=== PATIENT | female | born 1945 | race Caucasian/White ===

== ENCOUNTER → 2016-09-28 | Outpatient (CLI) | payer MEDICARE, BC, OTHER ==
--- NOTE | 2016-09-28 12:19 | ECHOS ---
DATE OF SERVICE: 09/28/2016 AGE: 71Y SEX: F HT: 62" WT: 141 lbs. Protocol Michael: X Others: Stress Echo Stage: 1 Dur. of Exercise: 3:00 *Heart Rate Blood Pressure *Rest: 66 Rest: 139/102 * *Max. Achieved: 140 Maximum BP: 207/78 85% PMHR: 125 100% PMHR: 147 *METS: 4.4 INDICATIONS: Chest pain. MEDICATIONS: Oxybutynin, aspirin. CLINICAL INFORMATION: Chest pain. Current medications oxybutynin, aspirin. Allergic to SULFA. Resting ECG shows sinus rhythm, rate of 66 beats per minute, VA interval 0.16, QRS 0.08, normal ST-T waves. Utilizing a standard Michael protocol, a symptom-limited treadmill test was performed. Patient exercised for total of about 3 minutes, attained a peak heart rate of 140 beats per minute which is approximately 90% of predicted maximum heart rate without chest pain or pressure or ST segment deviations indicative of ischemia. Baseline images show normal thickening and contractility. Postexercise echocardiogram shows improved contractility and thickening consistent with normal stress echocardiogram. IMPRESSION: 1. Normal stress echocardiogram. 2. Patient did not report any symptoms throughout the study.
== END | disposition home or self-care (01) ==
LOC: RADNMMAIN 09:24
PROVIDERS: ATTEND Internal Medicine
DX: R07.9 Chest pain, unspecified (principal); R68.84 Jaw pain
CPT/HCPCS: 93017; 93350

== ENCOUNTER → 2018-08-28 | Outpatient (CLI) | payer MEDICARE, BC, OTHER ==
[2018-08-28 15:55] LABS: HCT 41.9 % (34.0-46.0); MCH 30.1 pg (25.0-35.0); MCV 97.1 fL (80.0-100.0); Mean Platelet Volume 6.1; Platelet Count 370 k/uL (150-450); RBC 4.32 m/uL (3.80-5.40); RDW 12.6 % (11.5-15.5); WBC 6.9 k/uL (3.8-10.6)
[2018-08-28 16:02] LABS: Appearance,Urine Clear (Clear); Bilirubin,Urine Negative (Negative); Blood,Urine Negative (Negative); Color,Urine Yellow; Glucose,Urine (UA) Negative (Negative); Ketones,Urine Negative (Negative); Leukocyte Esterase,Urine Negative (Negative); Nitrite,Urine Negative (Negative); Protein,Urine Negative (Negative); Specific Gravity,Urine 1.006 (1.001-1.035); Urobilinogen,Urine <2.0 mg/dL (<2.0)
[2018-08-28 16:04] LABS: INR 0.9 (<1.2); Partial Thromboplastin Time 26.1 sec (22.0-30.0); Prothrombin Time 9.9 sec (9.0-12.0)
[2018-08-28 16:06] LABS: ALT 24 U/L (9-52); AST 22 U/L (14-36); Albumin 3.9 g/dL (3.5-5.0); Alkaline Phosphatase 42 U/L (38-126); Anion Gap 6 mmol/L; Blood Urea Nitrogen 13 mg/dL (7-17); Calcium 9.5 mg/dL (8.4-10.2); Carbon Dioxide 28 mmol/L (22-30); Chloride 99 mmol/L (98-107); Glucose 107 mg/dL (74-99); Potassium 4.3 mmol/L (3.5-5.1); Sodium 133 mmol/L (137-145); Total Bilirubin 0.3 mg/dL (0.2-1.3); Total Protein 6.5 g/dL (6.3-8.2)
== END | disposition home or self-care (01) ==
LOC: LABPAT 14:59
PROVIDERS: ATTEND Orthopaedic Surgery
DX: Z01.818 Encounter for other preprocedural examination (principal); Z01.812 Encounter for preprocedural laboratory examination
CPT/HCPCS: 36415; 80053; 81003; 85027; 85610; 85730; 87070; 93005

== ENCOUNTER 2018-09-16 07:34 | Inpatient (IN) | payer MEDICARE, BC, OTHER ==
--- NOTE | 2018-09-03 05:17 | CONS ---
CONSULTATION Mrs. Kennedy is a 73-year-old female who is scheduled to have left total knee arthroplasty by Dr. Quinton Chang to be performed at [facility] on September 16, 2018. The patient has had rather chronic left knee pain, not responding to conservative measures and she is fairly active. Basically she has generally been fairly healthy without history of myocardial infarction, diabetes or stroke. MEDICATIONS: Medications include melatonin at night for sleep. She is on for sinus congestion, oxybutynin 5 mg daily for bladder incontinence and hyperactive bladder. She is also on magnesium, coenzyme Q10 and other vitamin supplementation. REVIEW OF SYSTEMS: Negative for any unusual chest pain, shortness of breath, cough, fever, chills, or phlegm. No nausea, vomiting. No urinary or bowel symptoms. No unusual leg edema. No symptoms consistent with claudication. PREVIOUS SURGICAL HISTORY: Previous surgical history includes a tubal ligation and previous right knee replacement, previous cholecystectomy, ganglion cyst removal from the left breast and also previous right knee arthroscopy wound. FAMILY HISTORY: Family history is positive for coronary artery disease and asthma. SOCIAL HISTORY: She is a former smoker many years in the past. There is no history of any excessive alcohol usage. She lives locally in [place] with her . PHYSICAL EXAMINATION: On physical examination, she is alert, oriented, and pleasant female in no acute distress. Vital signs showed a blood pressure 128/72, pulse 70 and regular, respirations normal at 14. Her BMI is 24.5. HEENT was unremarkable with extraocular movements intact. Neck is not stiff. No thyromegaly, adenopathy detected. Lungs were clear to auscultation. Heart tones were regular without murmur. Breasts and pelvic exam was deferred. Abdomen is soft, nontender. No organomegaly. Extremities revealed no unusual edema. Neurologically, she is alert and oriented moving all her extremities without focal deficits noted. Patient did have preop laboratory values which include comprehensive metabolic panel with a blood sugar of 107, sodium of 133, potassium 4.3, BUN of 13, with creatinine of 0.54, giving her a GFR greater than 90. All her liver function testing was within normal limits. CBC revealed a white count of 6 9, hemoglobin 13, and platelet count of 307. A PT, INR was unremarkable. EKG revealed normal sinus rhythm without evidence of ischemic changes. OVERALL IMPRESSIONS AT THIS TIME POINT: This 73-year-old female with persistent left knee pain electing for left total knee arthroplasty. She does have a few medical concerns as listed above, but no major contraindications to planned surgical intervention. She was told to remain off any of her aspirin or anti-inflammatory medicine along with her vitamins for 1 week prior to surgery. Please call if any questions, concerns, or problems. MMODL / IJN: [id number] /
[~2018-09-16 07:34] MED LIST: ACETAMINOPHEN TAB 500 MG TAB PO ONE; DEXAMETHASONE SOD PHOSPHATE 10 MG/ML 1 ML VIAL IV ONE; LACTATED RINGERS 1,000 ML IV SCH; LIDOCAINE 1% 20 ML VIAL (10MG/ML) FOR IV START INTRADERMA PRN; MELOXICAM 7.5 MG TAB PO ONE; MIDAZOLAM (PF) 2 MG/2 ML VIAL IV PRN; ONDANSETRON 4 MG/2 ML VIAL IVP ONE; ROPIVACAINE 246.25 MG, EPINEPHrine 0.5 MG, KETOROLAC 30 MG, cloNIDine HCL/PF 80 MCG, WA... MISCELLANE ONE; TRANEXAMIC ACID 1,000 MG in SODIUM CHLORIDE 0.9% 100 ML IVPB ONE; ceFAZolin IN SWFI 2 GM/20 ML SYRINGE IVP ONE; fentaNYL (PF) 50 MCG/ML 2 ML AMP IV PRN
[2018-09-16] MEDS ORDERED: ROPIVACAINE 1,100 MG, SODIUM CHLORIDE 0.9% 500 ML 330 ML MISCELLANE PRN ×2 (08:23)
[2018-09-16] MEDS ORDERED: DIAZEPAM 5 MG TAB PO PRN (08:59)
[2018-09-16] MEDS ORDERED: NALOXONE 0.4 MG/ML 1 ML VIAL IV PRN (08:59)
[2018-09-16] MEDS ORDERED: NA PHOS,M-B/NA PHOS,DI-BA 133 ML ENEMA RECTAL PRN (08:59)
[2018-09-16] MEDS ORDERED: BISACODYL 10 MG SUPP RECTAL PRN (08:59)
[2018-09-16] MEDS ORDERED: HYDROcodone/APAP 5-325MG 1 EACH TAB PO PRN ×2 (08:59)
[2018-09-16] MEDS ORDERED: ONDANSETRON 4 MG/2 ML VIAL IVP PRN (08:59)
[2018-09-16] MEDS ORDERED: hydrOXYzine PAMOATE 25 MG CAP PO PRN (08:59)
[2018-09-16] MEDS ORDERED: MAGNESIUM HYDROXIDE 2,400 MG/10 ML CUP PO PRN (08:59)
[2018-09-16] MEDS ORDERED: HYDROmorphone 0.5 MG/0.5 ML SYRINGE IVP PRN ×3 (08:59)
[2018-09-16] MEDS ORDERED: diphenhydrAMINE 50 MG/ML 1 ML VIAL ONE (09:32)
[2018-09-16] MEDS ORDERED: MIDAZOLAM 2 MG/2 ML VIAL ONE (09:32)
[2018-09-16] MEDS ORDERED: fentaNYL (PF) 50 MCG/ML 2 ML AMP ONE (09:32)
[2018-09-16] MEDS ORDERED: SODIUM CHLORIDE 0.9% 100 ML BAG ONE (09:32)
[2018-09-16] MEDS ORDERED: ceFAZolin 3,000 MG in SODIUM CHLORIDE 0.9% IRRIGATIO 3,000 ML IRRIGATION ONE (09:32)
[2018-09-16] MEDS ORDERED: TRANEXAMIC ACID 1,000 MG/10 ML VIAL ONE (09:32)
--- NOTE | 2018-09-16 10:48 | P.OP ---
Date of Procedure: 09/16/18 Preoperative Diagnosis: Severe osteoarthritis left knee Postoperative Diagnosis: Severe osteoarthritis left knee Procedure(s) Performed: Left total knee arthroplasty Implants: [employer] Journey II CR Oxinium cruciate retaining femoral component size 3, left [employer] Journey left nonporous tibial baseplate size 2 [employer] Journey II, XLPE Deep Dished articular insert, size 15 mm, Size 1-2 left [employer] Journey BCS resurfacing round patellar component, 29 mm All components were cemented using Palacos R bone cement.. The articulation is Oxinium on polyethylene. Anesthesia: spinal Surgeon: Quinton Chang Senior Game Developer #1: Chrystal Argueta Estimated Blood Loss (ml): 25 Pathology: other (Bone and cartilage) Condition: stable Disposition: PACU Indications for Procedure: After failure of conservative treatment we discussed the surgical and nonsurgical treatment options at length. Patient wishes to proceed with a total knee arthroplasty. Complications specific to this procedure were discussed at length, including but not limited to infection, bleeding, stiffness, and nerve injury. Patient is aware of all these complications and informed consent was obtained Operative Findings: The operative findings are consistent with severe osteoarthritis of the left knee Description of Procedure: Patient was seen in the preoperative area consent was reviewed and operative site was marked with a skin marker. An adductor canal pain catheter was placed by anesthesia in the preoperative area. Patient was then brought to the operating room and given preoperative antibiotics intravenously. A spinal anesthetic was administered by the anesthesia department. A tourniquet was placed on the upper thigh and the lower extremity was prepped and draped in usual sterile fashion. A gram of transexamic acid was given. A universal timeout was then performed which confirmed the patient's name, surgical site, ALLERGIES, and consent. The lower extremity was then exsanguinated and tourniquet was inflated to 250 mmHg. A standard and anterior midline approach to the knee was performed. The skin and subcutaneous tissue was dissected down to the patellar tendon. A medial parapatellar arthrotomy was then performed. The knee was then extended, the patellar was everted, and the knee was again flexed. Anterior horns of both menisci were excised, and a release was performed to the posterior medial aspect of the knee. On gross visual inspection, there was complete loss of articular cartilage in the medial and patellofemoral joint spaces. There was also significant cartilage damage in the lateral compartment. There were multiple periarticular osteophytes which were then removed with a Ronguer. The femoral canal was then opened with the appropriate drill, and the intramedullary femoral cutting guide was then placed and set for 5 of valgus. The distal femoral cutting block was then pinned in place, and the distal femur was then cut. The cutting block was then removed and the cut was checked for flatness. Next, the sizing guide was then placed and set for 3 external rotation based off of the epicondylar axis and Whitesides line. After the femur was sized, the appropriate 4-in-1 cutting block was then pinned in place. The anterior condyles were cut without notching. The posterior and chamfer cuts were performed while protecting the collateral ligaments. The cutting block was then removed, and the femoral canal was plugged with autologous bone. Attention was then directed to the tibia. The remaining ACL was removed with a Ronguer, and the tibia was then gently subluxed forward with a large bent knee retractor. Any remaining menisci was excised. The posterior lateral corner was cauterized in order to cauterize the lateral geniculate artery. The extra medullary tibial cutting guide was then placed, set for the appropriate rotation, slope, and depth of resection. The proximal tibia cutting guide was then pinned in place. Proximal tibia was then cut and sized. Next trials were then placed with the appropriate-sized insert. The knee was able to fully extend and flex to 130 and was stable throughout all range of motion. The knee was then extended, patella everted. Patella was then measured, and then using an osteotomy guide, the patella was cut at the appropriate level. The patella was then measured and drilled and the patella trial was then placed. The knee was then taken through range of motion with the patella trial and the patella tracked normally. The knee was then extended patella trial was then removed and the patella was everted. Knee was then flexed and lug holes were drilled through the femoral trial and the femoral trial was then removed. The tibial was then exposed, and the tibial broach guide was then pinned in place after it was set for the appropriate rotation to allow for the most coverage without overhang. The tibia was then reamed and broached. The cut surfaces of bone were then irrigated with pulsatile lavage. The posterior structures were injected with the ropivacaine solution. The knee was also irrigated with Irrisept solution. The components were then opened, the cement was mixed, and the components were then cemented in place. The cement was allowed to harden with the knee in full extension. While the cement was hardening, the remaining soft tissues were then injected with a ropivacaine solution, which consisted of 246.25 mg of ropivacaine, 0.5 mg of epinephrine, 30 mg of Toradol, 80 g of clonidine, and 48.45 mL of sterile water, for a total of 100 mL of fluid injected. After the cemented hardened. The tourniquet was released, and hemostasis was obtained. A second gram of transexamic acid was given. The knee was again irrigated. The knee was again taken through range of motion and found to be stable throughout all range of motion of 0-130, and the patella tracked normally. The fascia was then closed with #2 strata fix suture. The subcutaneous tissue was closed with 3-0 Vicryl and 3-0 strata fix. Dermabond glue was used for the skin and placed with the knee in flexion. The patient was placed in a sterile silver dressing. Patient was then transferred to recovery room in stable condition. The help desk assistant KARAN Rodriugez was required due the complexity surgery and the need for a skilled elder assistant. She assisted in positioning, draping, retraction, and closure of the wound.
[2018-09-16] MEDS ORDERED: LACTATED RINGERS 1,000 ML IV ONE (11:17)
--- NOTE | 2018-09-16 11:58 | XR ---
EXAMINATION TYPE: XR knee limited LT DATE OF EXAM: 09/16/2018 COMPARISON: NONE TECHNIQUE: Two views submitted HISTORY: Post op FINDINGS: There is a prosthetic knee in near anatomic alignment. There is soft tissue edema and emphysema. IMPRESSION: 1. Postoperative change. Appears in near-anatomic alignment
[2018-09-16 13:29] VITALS: BMI 25.2
[2018-09-16 15:09] VITALS: RESP 16
[2018-09-16] MEDS: ASPIRIN 325 MG TAB PO SCH ×2 (15:51→23:22)
--- NOTE | 2018-09-16 17:18 | P.PN ---
Progress Note - Text The patient is a 73-year-old female who underwent left total knee arthroplasty earlier today by Dr. Quinton Chang. Please refer to note on preop consultation performed in office. Patient is presently alert and oriented in bed. She denies any chest pain or shortness of breath. No nausea or vomiting. Apparently she has been up to the bathroom couple times since her surgery. She is presently on clear liquids but is to have more regular diet this afternoon. Vital signs reveal a pulse of 86 with respirations 16 and blood pressure 113/72. Last temperature normal at 97.7. Lung and heart examination is clear and regular. Abdomen nontender. No unusual distal edema. She is alert and oriented without focal weakness noted. Overall this time patient appears to be doing well. Patient is being treated for incontinence and chronic sinus conditions. Generally these are stable at this time. May continue to progress as per orthopedics.
[2018-09-16] MEDS: ceFAZolin IN SWFI 2 GM/20 ML SYRINGE IVP SCH (17:51)
[2018-09-16] MEDS: SODIUM CHLORIDE 0.9% 1,000 ML IV SCH (17:51)
[2018-09-16] MEDS ORDERED: SENNOSIDES-DOCUSATE SODIUM 1 EACH TAB PO SCH (21:00)
[2018-09-17] MEDS: ceFAZolin IN SWFI 2 GM/20 ML SYRINGE IVP SCH (00:35)
[2018-09-17] MEDS: SODIUM CHLORIDE 0.9% 1,000 ML IV SCH (02:26)
--- NOTE | 2018-09-17 07:49 | P.PN ---
Progress Note - Text The patient is a 73-year-old female who yesterday underwent a left total knee arthroplasty. Presently she is sitting up in bed getting ready to eat breakfast. She denies any chest pain or shortness of breath or problems through the night. Vital signs show temperature 98.5 with a pulse of 76 and respirations 16. Her blood pressure at 1 AM was a little bit low at 97/60 she is 96% saturated at room air. Lung and heart exam was clear. No neurological changes. No new labs at this time. Impressions and plans Patient is being treated as an outpatient for her chronic sinus and incontinence problems. Progression in activities as per orthopedics. At discharge she can resume her previous home medications with follow-up in the office and call if any questions concerns or problems.
[2018-09-17 07:51] LABS: Basophils # (A) 0.1 k/uL (0-0.2); Basophils % (A) 1 %; Eosinophils % (A) 0 %; HCT 30.4 % (34.0-46.0); HGB 10.1 gm/dL (11.4-16.0); Lymphocytes # (A) 3.2 k/uL (1.0-4.8); Lymphocytes % (A) 31 %; MCH 31.4 pg (25.0-35.0); MCHC 33.3 g/dL (31.0-37.0); MCV 94.4 fL (80.0-100.0); Monocytes # (A) 0.6 k/uL (0-1.0); Monocytes % (A) 6 %; Neutrophils # (A) 6.3 k/uL (1.3-7.7); Neutrophils % (A) 61 %; Platelet Count 266 k/uL (150-450); RBC 3.22 m/uL (3.80-5.40); RDW 13.2 % (11.5-15.5); WBC 10.3 k/uL (3.8-10.6)
--- NOTE | 2018-09-17 08:32 | P.DS ---
Providers Date of admission: 09/16/18 07:34 Expected date of discharge: 09/17/18 Attending physician: Quinton Chang Consults: 09/16/18 08:59 Consult Physician Routine Consulting Provider: Bryan Peoples Reason/Comments: medical management Do you want consulting provider notified?: Yes Primary care physician: Bryan Peoples - Discharge Diagnosis(es) (1) S/P total knee arthroplasty Current Visit: Yes Status: Acute (2) Osteoarthritis of left knee Current Visit: Yes Status: Acute Hospital Course: This is a 73-year-old female with known history of degenerative arthritis of the left knee. The patient presents for evaluation. After discussion and consideration patient elects to proceed with total knee arthroplasty. The patient is seen preoperatively by Dr. Chang and medically cleared for surgery by their primary care physician. Patient is admitted to [facility] on 09/16/2018 for total knee arthroplasty. The procedures performed without complication or sequelae. The patient is doing well postoperatively. Labs and vital signs are stable on day of discharge. On day of discharge patient's knee incision is healing well. There is minimal erythema. There is no drainage noted at this time. There is minimal soft tissue swelling to the knee. Patient has full foot and ankle motion without difficulty or pain. Calf is soft and nontender to palpation. Neurovascular status to the left lower extremity is intact. Patient is discharged home in good condition. Opioid start talking form is reviewed and signed at patient bedside. Please see med rec for accurate list of home medications. Plan - Discharge Summary Discharge Rx Participant: No New Discharge Prescriptions: New Aspirin 325 mg PO BID #60 tab HYDROcodone/APAP 5-325MG [Oxford 5-325] 1 - 2 tab PO Q6HR PRN #56 tab PRN Reason: Pain Sennosides [Senokot] 1 tab PO BID #60 tablet No Action Triamcinolone Acetonide [Nasacort] 1 - 2 spr INHALATION BID Vitamin E (Dl,Tocopheryl Acet) [Vitamin E] 400 unit PO DAILY Multivit/Folic Acid/Vit K1 [One-A-Day Women's 50 Plus Tab] 1 each PO DAILY Cholecalciferol [Vitamin D3] 1,000 unit PO DAILY Vitamin B Complex 1 each PO DAILY Ubidecarenone [Co Q-10] 100 mg PO DAILY Odell-3 Fatty Acids [Odell-3] 1,000 mg PO DAILY Ascorbic Acid [Vitamin C] 1,000 mg PO DAILY Oxybutynin Chloride 5 mg PO DAILY Melatonin 5 mg PO HS PRN PRN Reason: sleep Cetirizine HCl 10 mg PO DAILY Aspirin 81 mg PO DAILY Acetaminophen [Tylenol Arthritis] 650 mg PO HS Magnesium Oxide [Mag-Ox] 250 mg PO DAILY Calcium Carbonate 1,500 mg PO DAILY Discharge Medication List Triamcinolone Acetonide [Nasacort] 1 - 2 spr INHALATION BID 10/13/15 [History] Acetaminophen [Tylenol Arthritis] 650 mg PO HS 09/04/18 [History] Ascorbic Acid [Vitamin C] 1,000 mg PO DAILY 09/04/18 [History] Aspirin 81 mg PO DAILY 09/04/18 [History] Cetirizine HCl 10 mg PO DAILY 09/04/18 [History] Cholecalciferol [Vitamin D3] 1,000 unit PO DAILY 09/04/18 [History] Melatonin 5 mg PO HS PRN 09/04/18 [History] Multivit/Folic Acid/Vit K1 [One-A-Day Women's 50 Plus Tab] 1 each PO DAILY 09/04/18 [History] Odell-3 Fatty Acids [Odell-3] 1,000 mg PO DAILY 09/04/18 [History] Oxybutynin Chloride 5 mg PO DAILY 09/04/18 [History] Ubidecarenone [Co Q-10] 100 mg PO DAILY 09/04/18 [History] Vitamin B Complex 1 each PO DAILY 09/04/18 [History] Vitamin E (Dl,Tocopheryl Acet) [Vitamin E] 400 unit PO DAILY 09/04/18 [History] Calcium Carbonate 1,500 mg PO DAILY 09/16/18 [History] Magnesium Oxide [Mag-Ox] 250 mg PO DAILY 09/16/18 [History] Aspirin 325 mg PO BID #60 tab 09/17/18 [Rx] HYDROcodone/APAP 5-325MG [Oxford 5-325] 1 - 2 tab PO Q6HR PRN #56 tab 09/17/18 [Rx] Sennosides [Senokot] 1 tab PO BID #60 tablet 09/17/18 [Rx] Follow up Appointment(s)/Referral(s): Quinton Chang DO [Doctor of Osteopathic Medicine] - 2 Weeks Activity/Diet/Wound Care/Special Instructions: Weightbearing as tolerated with a walker. CPM 5-6h daily. Leave dressing intact. May be removed by home care nurse or by patient in 10 days. May shower with dressing on. Please follow up with [facility] and call with any questions or concerns, . Discharge Disposition: HOME WITH HOME HEALTH SERVICES
[2018-09-17] MEDS: ASPIRIN 325 MG TAB PO SCH (08:48)
[2018-09-17] MEDS ORDERED: MELOXICAM 7.5 MG TAB PO SCH (09:00)
[2018-09-17 09:09] VITALS: BP 112/66; PULSE 78; TEMP 98.1
--- NOTE | 2018-09-17 13:41 | P.ONQ ---
Anesthesiology Proc Note - PNB - Peripheral Nerve Block Performed Left Adductor Canal Infusion Time Out Performed: Yes Procedure Start Time: :25 Procedure Stop Time: :35 Indication: Acute Post-Operative Pain, Requested by physician Sedation Type: Sedate with meaningful contact maintained Preparation: Sterile Dressing Position: Supine Catheter: Indwelling Needle Types: On-Q Needle Size: 100mm (4") Needle Gauge: 21 Technique: Ultrasound (ropi .5% 20cc) Blood Aspirated: No Pain Paresthesia on Injection Noted: No Resistance on Injection: Normal Events: Uneventful and Well Tolerated
== END 2018-09-17 13:27 | disposition home health service (06) | DRG 470 ==
LOC: 2ORMAIN 07:34 → 4SSUR 11:29
PROVIDERS: ADMIT Orthopaedic Surgery; ATTEND Orthopaedic Surgery
PROC: 3E0T3BZ Introduction of Anesthetic Agent into Peripheral Nerves and Plexi, Percutaneous Approach (ICD-10-PCS; 2018-09-16)
PROC: 0SRD069 Replacement of Left Knee Joint with Oxidized Zirconium on Polyethylene Synthetic Substitute, Cemented, Open Approach (ICD-10-PCS; principal; 2018-09-16 09:25)
DX: M17.12 Unilateral primary osteoarthritis, left knee (principal); R32 Unspecified urinary incontinence; Z82.49 Family history of ischemic heart disease and other diseases of the circulatory system; Z82.5 Family history of asthma and other chronic lower respiratory diseases; Z87.891 Personal history of nicotine dependence; Z88.2 Allergy status to sulfonamides; Z88.8 Allergy status to other drugs, medicaments and biological substances; G89.29 Other chronic pain; N32.81 Overactive bladder; Z96.651 Presence of right artificial knee joint
CPT/HCPCS: 85025; 88300

== ENCOUNTER 2020-01-23 10:44 | Observation (INO) | payer MEDICARE, BC, OTHER ==
[2020-01-23] MEDS ORDERED: SODIUM CHLORIDE 0.9% 1,000 ML IV STA (11:19)
[2020-01-23] MEDS ORDERED: DIAZEPAM 5 MG/ML 2 ML INJ IVP STA (11:19)
[2020-01-23] MEDS ORDERED: MECLIZINE 12.5 MG TAB PO STA ×2 (11:19→13:25)
--- NOTE | 2020-01-23 11:25 | ED ---
Dizziness HPI - General Chief Complaint: Dizziness Stated Complaint: Dizziness Time Seen by Provider: 01/23/20 11:07 Source: patient Mode of arrival: wheelchair Limitations: no limitations - History of Present Illness Initial Comments: Patient is 74-year-old female presenting to emergency Department with a chief complaint of dizziness. Patient reports she woke up this morning around 2 AM and felt dizzy where the room was spinning around her. Patient reports this lasted for about 2-3 minutes and resolved. Patient reports she woke up this morning and she continued to have symptoms. Patient states she called her primary care physician was concerned for an ear infection but the patient is declining any otalgia or decreased hearing in either ear. Denies any drainage from the ears. Denies history of vertigo. Denies any headaches, visual lopez es, one-sided weakness or paresthesias. Denies chest pain shortness of breath nausea vomiting abdominal pain or back pain. - Related Data Home Medications Medication Instructions Recorded Confirmed Triamcinolone Acetonide [Nasacort] 1 - 2 spr INHALATION BID 10/13/15 09/16/18 Acetaminophen [Tylenol Arthritis] 650 mg PO HS 09/04/18 09/16/18 Ascorbic Acid [Vitamin C] 1,000 mg PO DAILY 09/04/18 09/16/18 Aspirin 81 mg PO DAILY 09/04/18 09/16/18 Cetirizine HCl 10 mg PO DAILY 09/04/18 09/16/18 Cholecalciferol [Vitamin D3] 1,000 unit PO DAILY 09/04/18 09/16/18 Melatonin 5 mg PO HS PRN 09/04/18 09/16/18 Multivit/Folic Acid/Vit K1 1 each PO DAILY 09/04/18 09/16/18 [One-A-Day Women's 50 Plus Tab] Wright-3 Fatty Acids [Wright-3] 1,000 mg PO DAILY 09/04/18 09/16/18 Oxybutynin Chloride 5 mg PO DAILY 09/04/18 09/16/18 Ubidecarenone [Co Q-10] 100 mg PO DAILY 09/04/18 09/16/18 Vitamin B Complex 1 each PO DAILY 09/04/18 09/16/18 Vitamin E (Dl,Tocopheryl Acet) 400 unit PO DAILY 09/04/18 09/16/18 [Vitamin E] Calcium Carbonate 1,500 mg PO DAILY 09/16/18 09/16/18 Magnesium Oxide [Mag-Ox] 250 mg PO DAILY 09/16/18 09/16/18 Previous Rx's Medication Instructions Recorded Aspirin 325 mg PO BID #60 tab 09/17/18 HYDROcodone/APAP 5-325MG [Baxter 1 - 2 tab PO Q6HR PRN #56 tab 09/17/18 5-325] Sennosides [Senokot] 1 tab PO BID #60 tablet 09/17/18 Allergies Allergy/AdvReac Type Severity Reaction Status Date / Time albuterol Allergy Rapid Verified 01/23/20 10:48 Heart Rate,throat and tongue pain casey Allergy Rash/Hives, Verified 01/23/20 10:48 nausea Sulfa (Sulfonamide Allergy ringing in Verified 01/23/20 10:48 Antibiotics) ears and balance is off wool Allergy Rash/Hives Verified 01/23/20 10:48 Review of Systems ROS Statement: Those systems with pertinent positive or pertinent negative responses have been documented in the HPI. ROS Other: All systems not noted in ROS Statement are negative. Past Medical History Past Medical History: No Reported History Additional Past Medical History / Comment(s): ARTHRITIS History of Any Multi-Drug Resistant Organisms: None Reported Past Surgical History: Cholecystectomy, Orthopedic Surgery Additional Past Surgical History / Comment(s): KNEE, CATARACT Past Anesthesia/Blood Transfusion Reactions: No Reported Reaction Additional Past Anesthesia/Blood Transfusion Reaction / Comment(s): no hx blood transfusion Past Psychological History: No Psychological Hx Reported Smoking Status: Never smoker Past Alcohol Use History: None Reported Past Drug Use History: None Reported - Past Family History Mother Family Medical History: Cancer Additional Family Medical History / Comment(s): large cell lymphoma Brother(s) Family Medical History: Cancer Additional Family Medical History / Comment(s): lung General Exam Limitations: no limitations General appearance: alert, in no apparent distress Head exam: Present: atraumatic, normocephalic, normal inspection Eye exam: Present: normal appearance, PERRL, EOMI Pupils: Present: normal accommodation ENT exam: Present: normal exam, normal oropharynx, mucous membranes moist Neck exam: Present: normal inspection, full ROM. Absent: tenderness Respiratory exam: Present: normal lung sounds bilaterally. Absent: respiratory distress, wheezes Cardiovascular Exam: Present: regular rate, normal rhythm, normal heart sounds GI/Abdominal exam: Present: soft. Absent: distended, tenderness, guarding Extremities exam: Present: normal inspection, full ROM, normal capillary refill, other (+2 ulnar and radial pulses bilaterally.). Absent: tenderness, pedal edema, joint swelling, calf tenderness Back exam: Present: normal inspection, full ROM Neurological exam: Present: alert, oriented X3, CN II-XII intact, normal gait Expanded Patient oriented to: Present: person, place, time Speech: Present: fluid speech Cranial nerves: EOM's Intact: Normal, Gag Reflex: Normal, Tongue Deviation: Normal, Nystagmus: Normal (There is subtle lateral nystagmus), Facial Sensation: Normal Cerebellar function: Finger to Nose: Normal Upper motor neuron: Pronator Drift: Normal Sensory exam: Upper Extremity Light Touch: Normal, Upper Extremity Pin Prick: Normal, Lower Extremity Light Touch: Normal, Lower Extremity Pin Prick: Normal Motor strength exam: RUE: 5, LUE: 5, RLE: 5, LLE: 5 DTR: Bicep (R): 4+, Bicep (L): 4+, Tricep (R): 4+, Tricep (L): 4+, Patellar (R): 4+, Patellar (L): 4+ Eye Response: (4) open spontaneously Motor Response: (6) obeys commands Verbal Response: (5) oriented Psychiatric exam: Present: normal affect, normal mood Skin exam: Present: warm, dry, intact, normal color Course Vital Signs 01/23/20 01/23/20 01/23/20 10:46 11:10 12:00 Temperature 97.8 F Pulse Rate 75 70 60 Respiratory 18 18 16 Rate Blood Pressure 131/69 124/63 125/58 O2 Sat by Pulse 98 98 99 Oximetry 01/23/20 13:00 Temperature Pulse Rate 88 Respiratory 20 Rate Blood Pressure 139/93 O2 Sat by Pulse 99 Oximetry Medical Decision Making - Medical Decision Making Patient is 74 year old female presenting to emergency with chief complaint of dizziness. Neurological examination is unremarkable. EKG shows sinus rhythm and no ST or T-wave changes. Brain CT shows no acute processes. CBC CMP is unremarkable. Patient was given Antivert and Valium in the emergency department. On reevaluation patient has difficulty standing up visit of dizziness with the room spinning around her. [place]-Hallpike maneuver did not seem to increase her dizziness. No focal deficits. Patient will be admitted for intractable dizziness. Case discussed with . admitting is dr reid - Lab Data Result diagrams: 01/23/20 12:13 01/23/20 12:13 Lab Results 01/23/20 01/23/20 Range/Units 12:13 12:13 WBC 7.2 (3.8-10.6) k/uL RBC 4.62 (3.80-5.40) m/uL Hgb 14.2 (11.4-16.0) gm/dL Hct 44.2 (34.0-46.0) % MCV 95.8 (80.0-100.0) fL MCH 30.8 (25.0-35.0) pg MCHC 32.2 (31.0-37.0) g/dL RDW 12.5 (11.5-15.5) % Plt Count 354 (150-450) k/uL Neutrophils % 72 % Lymphocytes % 22 % Monocytes % 4 % Eosinophils % 0 % Basophils % 1 % Neutrophils # 5.2 (1.3-7.7) k/uL Lymphocytes # 1.6 (1.0-4.8) k/uL Monocytes # 0.3 (0-1.0) k/uL Eosinophils # 0.0 (0-0.7) k/uL Basophils # 0.1 (0-0.2) k/uL Sodium 133 L (137-145) mmol/L Potassium 4.2 (3.5-5.1) mmol/L Chloride 103 (98-107) mmol/L Carbon Dioxide 26 (22-30) mmol/L Anion Gap 4 mmol/L BUN 13 (7-17) mg/dL Creatinine 0.55 (0.52-1.04) mg/dL Est GFR (CKD-EPI)AfAm >90 (>60 ml/min/1.73 sqM) Est GFR (CKD-EPI)NonAf >90 (>60 ml/min/1.73 sqM) Glucose 108 H (74-99) mg/dL Calcium 9.1 (8.4-10.2) mg/dL Total Bilirubin 0.4 (0.2-1.3) mg/dL AST 23 (14-36) U/L ALT 15 (4-34) U/L Alkaline Phosphatase 50 (38-126) U/L Total Protein 6.7 (6.3-8.2) g/dL Albumin 4.1 (3.5-5.0) g/dL Disposition Clinical Impression: Dizziness Disposition: ADMITTED IP TO THIS HOSP Condition: Good Instructions (If sedation given, give patient instructions): Dizziness (ED) Additional Instructions: Patient will be admitted Is patient prescribed a controlled substance at d/c from ED?: No Referrals: Laurence Valles MD [Primary Care Provider] - 1-2 days Time of Disposition: 14:04
--- NOTE | 2020-01-23 12:19 | CT ---
EXAMINATION TYPE: CT brain wo con DATE OF EXAM: 01/23/2020 HISTORY: Dizziness CT DLP: 1024.4 mGycm. Automated Exposure Control for Dose Reduction was Utilized. TECHNIQUE: CT scan of the head is performed without contrast. COMPARISON: None. FINDINGS: There is no acute intracranial hemorrhage or midline shift identified. There is diffuse v entricular and sulcal prominence consistent with diffuse age-related cerebral atrophy. There is low- attenuation in the periventricular white matter consistent with chronic small vessel ischemic change. The globes are intact and the visualized sinuses are clear. No suspicious opacification mastoid a ir cells bilaterally. Hypoplastic left frontal sinus IMPRESSION: No acute intracranial hemorrhage or midline shift. There is mild diffuse age-related ce rebral atrophy and mild to moderate chronic small vessel ischemic change noted.
[2020-01-23 12:20] LABS: Basophils # (A) 0.1 k/uL (0-0.2); Basophils % (A) 1 %; Eosinophils % (A) 0 %; HCT 44.2 % (34.0-46.0); HGB 14.2 gm/dL (11.4-16.0); Lymphocytes # (A) 1.6 k/uL (1.0-4.8); Lymphocytes % (A) 22 %; MCH 30.8 pg (25.0-35.0); MCHC 32.2 g/dL (31.0-37.0); MCV 95.8 fL (80.0-100.0); Mean Platelet Volume 6.6; Monocytes # (A) 0.3 k/uL (0-1.0); Monocytes % (A) 4 %; Neutrophils # (A) 5.2 k/uL (1.3-7.7); Neutrophils % (A) 72 %; Platelet Count 354 k/uL (150-450); RBC 4.62 m/uL (3.80-5.40); RDW 12.5 % (11.5-15.5); WBC 7.2 k/uL (3.8-10.6)
[2020-01-23 12:30] LABS: ALT 15 U/L (4-34); AST 23 U/L (14-36); African American GFR (CKD) >90 (>60 ml/min/1.73 sqM); Albumin 4.1 g/dL (3.5-5.0); Alkaline Phosphatase 50 U/L (38-126); Anion Gap 4 mmol/L; Blood Urea Nitrogen 13 mg/dL (7-17); Calcium 9.1 mg/dL (8.4-10.2); Carbon Dioxide 26 mmol/L (22-30); Chloride 103 mmol/L (98-107); Glucose 108 mg/dL (74-99); Non-African American GFR(CKD) >90 (>60 ml/min/1.73 sqM); Potassium 4.2 mmol/L (3.5-5.1); Sodium 133 mmol/L (137-145); Total Bilirubin 0.4 mg/dL (0.2-1.3); Total Protein 6.7 g/dL (6.3-8.2)
[2020-01-23] MEDS ORDERED: NALOXONE 0.4 MG/ML 1 ML VIAL IV PRN ×2 (13:19→15:08)
[2020-01-23] MEDS ORDERED: MORPHINE SULFATE 4 MG/ML SYRINGE IV PRN (13:19)
[2020-01-23] MEDS ORDERED: LORazepam 2 MG/ML INJ IV PRN (13:19)
[2020-01-23] MEDS ORDERED: ONDANSETRON 4 MG/2 ML VIAL IVP PRN (13:19)
[2020-01-23] MEDS: SODIUM CHLORIDE 0.9% 1,000 ML IV SCH (13:41)
--- NOTE | 2020-01-23 16:19 | MR ---
EXAMINATION TYPE: MR brain wo/w con DATE OF EXAM: 01/23/2020 COMPARISON: None HISTORY: Vertigo CONTRAST: Standard multiplanar, multisequence MRI departmental protocol utilizing 6 mL intravenous Gadavist benjy olinium contrast. There is some cerebral cortical atrophy. There is no mass effect nor midline shift. There is no sign of intracranial hemorrhage. Diffusion images show no evidence of cortical infarct. There are patchy a reas of abnormal increased signal on the T2 and FLAIR images in both cerebral hemispheres at the nava -white matter junction. These measure up to 1 cm. Total number is approximately 20. There is no patho logic enhancement. There is normal enhancement of the venous sinuses. Sella turcica appears normal. C orpus callosum appears intact. Cerebellum is intact. There is no evidence of a posterior fossa mass. Internal auditory canals appear normal. IMPRESSION: Cerebral atrophy. White matter changes could relate to chronic small vessel ischemia or demyelinating disease. No evidence of cortical infarct.
--- NOTE | 2020-01-23 17:08 | P.HPIM ---
History of Present Illness H&P Date: 01/23/20 Chief Complaint: Dizziness 74-year-old woman past medical history seasonal ALLERGIES, otherwise unremarkable for chronic medical conditions, presented with dizziness. Patient says that she started to experience dizziness upon waking at 2 AM to 3 AM in the morning. It was most severe at that time, then dwindled a little bit, however did not go away throughout the day. She had no associated symptoms including visual changes, nausea, vomiting, ataxia, palpitations, flushing, falls, syncope, presyncopal, chest pain, shortness of breath, abdominal pain, dysuria, dyschezia, fevers, chills, numbness/weakness of the upper or lower extremities. Out of concern for this dizziness, she came to the ER for evaluation with her . On arrival she was afebrile, 139/93, heart rate 88, 99% room air. CBC was unremarkable. Chemistries are unremarkable. LFTs are unremarkable. CT of the head was negative for pathology. Review of Systems All Systems reviewed and pertinent positives and negatives noted in HPI, all other symptoms are negative Past Medical History Past Medical History: No Reported History Additional Past Medical History / Comment(s): ARTHRITIS History of Any Multi-Drug Resistant Organisms: None Reported Past Surgical History: Cholecystectomy, Orthopedic Surgery Additional Past Surgical History / Comment(s): KNEE, CATARACT Past Anesthesia/Blood Transfusion Reactions: No Reported Reaction Additional Past Anesthesia/Blood Transfusion Reaction / Comment(s): no hx blood transfusion Past Psychological History: No Psychological Hx Reported Smoking Status: Never smoker Past Alcohol Use History: None Reported Past Drug Use History: None Reported - Past Family History Mother Family Medical History: Cancer Additional Family Medical History / Comment(s): large cell lymphoma Brother(s) Family Medical History: Cancer Additional Family Medical History / Comment(s): lung Medications and Allergies Home Medications Medication Instructions Recorded Confirmed Type Triamcinolone Acetonide [Nasacort] 1 - 2 spr EA NOSTRIL HS 10/13/15 01/23/20 History Acetaminophen [Tylenol Arthritis] 1,300 mg PO HS 09/04/18 01/23/20 History Ascorbic Acid [Vitamin C] 1,000 mg PO DAILY 09/04/18 01/23/20 History Aspirin 81 mg PO DAILY 09/04/18 01/23/20 History Cetirizine HCl 10 mg PO HS 09/04/18 01/23/20 History Cholecalciferol [Vitamin D3] 1,000 unit PO DAILY 09/04/18 01/23/20 History Melatonin 5 mg PO HS 09/04/18 01/23/20 History Multivit/Folic Acid/Vit K1 1 tab PO DAILY 09/04/18 01/23/20 History [One-A-Day Women's 50 Plus Tab] Ponder-3 Fatty Acids [Ponder-3] 1,000 mg PO HS 09/04/18 01/23/20 History Oxybutynin Chloride 5 mg PO DAILY 09/04/18 01/23/20 History Ubidecarenone [Co Q-10] 100 mg PO DAILY 09/04/18 01/23/20 History Vitamin B Complex 1 cap PO DAILY 09/04/18 01/23/20 History Vitamin E (Dl,Tocopheryl Acet) 400 unit PO DAILY 09/04/18 01/23/20 History [Vitamin E] Calcium Carbonate 1,500 mg PO DAILY 09/16/18 01/23/20 History Magnesium Oxide [Mag-Ox] 250 mg PO HS 09/16/18 01/23/20 History Allergies Allergy/AdvReac Type Severity Reaction Status Date / Time albuterol Allergy Rapid Verified 01/23/20 14:34 Heart Rate,throat and tongue pain casey Allergy Rash/Hives, Verified 01/23/20 14:34 nausea Sulfa (Sulfonamide Allergy ringing in Verified 01/23/20 14:34 Antibiotics) ears and balance is off wool Allergy Rash/Hives Verified 01/23/20 14:34 Physical Exam Osteopathic Statement: *. No significant issues noted on an osteopathic structural exam other than those noted in the History and Physical/Consult. Vitals: Vital Signs Temp Pulse Resp BP Pulse Ox 01/23/20 16:20 98.3 F 78 18 132/65 99 01/23/20 15:00 88 18 129/75 98 01/23/20 13:00 88 20 139/93 99 01/23/20 12:00 60 16 125/58 99 01/23/20 11:10 70 18 124/63 98 01/23/20 10:46 97.8 F 75 18 131/69 98 Intake and Output 01/23/20 01/23/20 01/23/20 06:59 14:59 22:59 Other: Weight 58.513 kg Gen: awake, alert HEENT: normocephalic, atraumatic, good hearing acuity, moist mucous membranes Resp: CTAB, good air exchange, no accessory muscle use, no wheezes, crackles, rhonchi CVS: good distal perfusion x 4, RRR, no murmurs, clicks, gallops GI: soft, NTTP, ND : no SPT, no CVAT, yeh catheter [IS/NOT] present MSK: no pitting edema, no clubbing Neuro: non-focal, no sensory deficits, appropriate tone, [id number] was negative, vvhbyb-[id number] was negative. Patient did not have any significant nystagmus upon eye-movement. Psych: cooperative, euthymic mood Results CBC & Chem 7: 01/23/20 12:13 01/23/20 12:13 Labs: Abnormal Lab Results - Last 24 Hours (Table) 01/23/20 Range/Units 12:13 Sodium 133 L (137-145) mmol/L Glucose 108 H (74-99) mg/dL Assessment and Plan Assessment: 1. Vertigo 2. Seasonal ALLERGIES 74 year-old woman with seasonal ALLERGIES presented with vertigo symptoms which did not relent throughout the day, prompting concern for central causes of vertigo. Plan: daily neurological exam MRI to evaluate for central cause of vertigo PT/OT; OT to help with Marci maneuver antivert PRN ativan PRN nausea control IVF orthostatics BID monitor on telemetry normal EKG, no indication for echo can consider carotid doppler if no relief by tomorrow AM Full Code is DPOA DVT PPx: early ambulation
[2020-01-23] MEDS ORDERED: MELATONIN 5 MG TABLET PO SCH (21:00)
[2020-01-23] MEDS ORDERED: FLUTICASONE 50MCG/SPRAY NASAL 16GM EA NOSTRIL SCH (21:00)
[2020-01-23] MEDS ORDERED: MAGNESIUM OXIDE 400 MG TAB PO SCH (21:00)
[2020-01-23] MEDS ORDERED: LORATADINE 10 MG TAB PO SCH (21:00)
[2020-01-23] MEDS ORDERED: NON FORMULARY DRUG (Omega-3 Fatty Acids [Omega-3] 1,000 MG) PO SCH (21:00)
[2020-01-24 08:10] LABS: Basophils # (A) 0.1 k/uL (0-0.2); Basophils % (A) 1 %; Eosinophils # (A) 0.1 k/uL (0-0.7); Eosinophils % (A) 1 %; HGB 12.4 gm/dL (11.4-16.0); Lymphocytes # (A) 2.7 k/uL (1.0-4.8); Lymphocytes % (A) 51 %; MCH 30.2 pg (25.0-35.0); MCHC 31.1 g/dL (31.0-37.0); MCV 97.2 fL (80.0-100.0); Mean Platelet Volume 6.7; Monocytes # (A) 0.3 k/uL (0-1.0); Monocytes % (A) 5 %; Neutrophils % (A) 39 %; Platelet Count 316 k/uL (150-450); RBC 4.12 m/uL (3.80-5.40); RDW 12.7 % (11.5-15.5); WBC 5.2 k/uL (3.8-10.6)
[2020-01-24 08:25] LABS: African American GFR (CKD) >90 (>60 ml/min/1.73 sqM); Anion Gap 2 mmol/L; Blood Urea Nitrogen 9 mg/dL (7-17); Calcium 8.1 mg/dL (8.4-10.2); Carbon Dioxide 25 mmol/L (22-30); Chloride 109 mmol/L (98-107); Glucose 92 mg/dL (74-99); Non-African American GFR(CKD) >90 (>60 ml/min/1.73 sqM); Sodium 136 mmol/L (137-145)
[2020-01-24] MEDS ORDERED: CALCIUM CARB-VIT D 500MG-200UN 1 EACH TAB PO ONE (09:00)
[2020-01-24] MEDS ORDERED: MULTIVITAMINS, THERA 1 EACH TAB PO SCH (09:00)
[2020-01-24] MEDS ORDERED: CALCIUM CARB-VIT D 500MG-200UN 1 EACH TAB PO SCH (09:00)
[2020-01-24] MEDS ORDERED: NON FORMULARY DRUG (Ubidecarenone [Co Q-10] 100 MG) PO SCH (09:00)
[2020-01-24] MEDS ORDERED: CHOLECALCIFEROL 1,000 UNIT TAB PO SCH (09:00)
[2020-01-24] MEDS ORDERED: OXYBUTYNIN CHLORIDE 5 MG TAB PO SCH (09:00)
[2020-01-24] MEDS ORDERED: NON FORMULARY DRUG (Vitamin B Complex [Vitamin B Complex] 1 CAP) PO SCH (09:00)
[2020-01-24] MEDS ORDERED: ASCORBIC ACID 500 MG TAB PO SCH (09:00)
[2020-01-24] MEDS ORDERED: VITAMIN E (DL,TOCOPHERYL ACET) 400 UNIT CAP PO SCH (09:00)
[2020-01-24] MEDS ORDERED: ASPIRIN 81 MG PO SCH (09:00)
[2020-01-24 09:50] VITALS: BP 146/64; PULSE 75; RESP 12; TEMP 97.7
[2020-01-24] MEDS: SODIUM CHLORIDE 0.9% 1,000 ML IV SCH (10:26)
--- NOTE | 2020-01-24 10:48 | P.DS ---
Providers Date of admission: 01/23/20 13:20 Attending physician: Nicki Littlejohn DO [facility] Course: 1. Vertigo 2. Seasonal ALLERGIES 74 year-old woman with seasonal ALLERGIES presented with vertigo symptoms which did not relent throughout the day, prompting concern for central causes of vertigo. MRI to evaluate for central cause of vertigo was negative. Patient reported significant improvement in symptoms after one day observation. Patient given instructions on chary maneuver at home and a prescription for antivert PRN for dizziness. Pt to follow up with PCP. Patient Condition at Discharge: Good Plan - Discharge Summary Discharge Rx Participant: No New Discharge Prescriptions: New Meclizine [Antivert] 12.5 mg PO Q6H PRN #30 tablet PRN Reason: dizziness Continue Triamcinolone Acetonide [Nasacort] 1 - 2 spr EA NOSTRIL HS Vitamin E (Dl,Tocopheryl Acet) [Vitamin E] 400 unit PO DAILY Multivit/Folic Acid/Vit K1 [One-A-Day Women's 50 Plus Tab] 1 tab PO DAILY Cholecalciferol [Vitamin D3 (25 Mcg = 1000 Iu)] 1,000 unit PO DAILY Vitamin B Complex 1 cap PO DAILY Ubidecarenone [Co Q-10] 100 mg PO DAILY [place]-3 Fatty Acids [[place]-3] 1,000 mg PO HS Ascorbic Acid [Vitamin C] 1,000 mg PO DAILY Oxybutynin Chloride 5 mg PO DAILY Melatonin 5 mg PO HS Cetirizine HCl 10 mg PO HS Aspirin 81 mg PO DAILY Acetaminophen [Tylenol Arthritis] 1,300 mg PO HS Magnesium Oxide [Mag-Ox] 250 mg PO HS Calcium Carbonate 1,500 mg PO DAILY Discharge Medication List Triamcinolone Acetonide [Nasacort] 1 - 2 spr EA NOSTRIL HS 10/13/15 [History] Acetaminophen [Tylenol Arthritis] 1,300 mg PO HS 09/04/18 [History] Ascorbic Acid [Vitamin C] 1,000 mg PO DAILY 09/04/18 [History] Aspirin 81 mg PO DAILY 09/04/18 [History] Cetirizine HCl 10 mg PO HS 09/04/18 [History] Cholecalciferol [Vitamin D3 (25 Mcg = 1000 Iu)] 1,000 unit PO DAILY 09/04/18 [History] Melatonin 5 mg PO HS 09/04/18 [History] Multivit/Folic Acid/Vit K1 [One-A-Day Women's 50 Plus Tab] 1 tab PO DAILY 09/04/18 [History] [place]-3 Fatty Acids [[place]-3] 1,000 mg PO HS 09/04/18 [History] Oxybutynin Chloride 5 mg PO DAILY 09/04/18 [History] Ubidecarenone [Co Q-10] 100 mg PO DAILY 09/04/18 [History] Vitamin B Complex 1 cap PO DAILY 09/04/18 [History] Vitamin E (Dl,Tocopheryl Acet) [Vitamin E] 400 unit PO DAILY 09/04/18 [History] Calcium Carbonate 1,500 mg PO DAILY 09/16/18 [History] Magnesium Oxide [Mag-Ox] 250 mg PO HS 09/16/18 [History] Meclizine [Antivert] 12.5 mg PO Q6H PRN #30 tablet 01/24/20 [Rx] Follow up Appointment(s)/Referral(s): Laurence Valles MD [Primary Care Provider] - 1-2 days Patient Instructions/Handouts: Dizziness (ED) Activity/Diet/Wound Care/Special Instructions: Patient will be admitted
== END 2020-01-24 11:42 | disposition home or self-care (01) ==
LOC: EC 10:44 → 1SOBS 13:20
PROVIDERS: ADMIT Internal Medicine; ATTEND Internal Medicine
DX: R42 Dizziness and giddiness (principal); J30.2 Other seasonal allergic rhinitis; Z79.82 Long term (current) use of aspirin; Z80.7 Family history of other malignant neoplasms of lymphoid, hematopoietic and related tissues; Z79.899 Other long term (current) drug therapy; Z88.2 Allergy status to sulfonamides; Z88.8 Allergy status to other drugs, medicaments and biological substances; Z91.048 Other nonmedicinal substance allergy status
CPT/HCPCS: 96361; 96374; 99285; 36415; 93005; 80053; 80048; 83735; 85025 ×2; 70450; 70553; G0378 ×2; J3360; A9585

== ENCOUNTER → 2020-04-27 | Outpatient (CLI) | payer MEDICARE, BC, OTHER ==
--- NOTE | 2020-04-27 22:41 | CT ---
EXAMINATION TYPE: CT iac wo con DATE OF EXAM: 04/27/2020 COMPARISON: None HISTORY: Vertigo, tinnitus CT DLP: 142.70 mGycm Automated exposure control for dose reduction was used. FINDINGS: Mastoid air cells are clear. Attics are clear. Scutum are normal. Cochlea are normal. Internal audito ry canals appear normal without expansion or erosion. Cerebellar pontine angles appear normal without masses. Semicircular canals are normal. Middle ears are clear. External auditory canals are clear. Paranasal sinuses within the [id number]-[id number] are clear. Torus tubarius and fossa of Rosenmuller are nor mal. Posterior fossa appears unremarkable. Ostiomeatal units are patent. IMPRESSION: NORMAL INTERNAL AUDITORY CANALS.
== END | disposition home or self-care (01) ==
LOC: RADCTMAIN 15:12
PROVIDERS: ATTEND Otolaryngology
DX: R42 Dizziness and giddiness (principal); H93.19 Tinnitus, unspecified ear
CPT/HCPCS: 70480

== ENCOUNTER → 2020-05-03 | Outpatient (CLI) | payer MEDICARE, BC, OTHER ==
--- NOTE | 2020-05-04 13:58 | ECHOF ---
Referral Reason:R01.1 Cardiac [place] MEASUREMENTS -------- HEIGHT: 157.5 cm WEIGHT: 59.9 kg BP: IVSd: 0.7 cm (0.6 - 1.1) LVIDd: 3.3 cm (3.9 - 5.3) LVPWd: 0.7 cm (0.6 - 1.1) EDV(Teich): 44 ml IVSs: 0.8 cm LVIDs: 1.3 cm LVPWs: 1.2 cm %IVS Thck: 26 % ESV(Teich): 4 ml EF(Teich): 91 % %FS: 62 % SV(Teich): 41 ml IVC: 9.60 mm LALs A4C: 3.6 cm LAAs A4C: 9.0 cm LAESV A-L A4C: 19 ml LAESV MOD A4C: 17 ml LALs A2C: 4.0 cm LAAs A2C: 10.5 cm LAESV A-L A2C: 23 ml LAESV MOD A2C: 21 ml LAESV(A-L): 22 ml LAESV Index (A-L): 13.84 ml/m Ao Diam: 2.3 cm (2.0 - 3.7) LA Diam: 2.5 cm (2.7 - 3.8) AV Cusp: 1.5 cm (1.5 - 2.6) EPSS: 0.7 cm MV E Gareth: 0.84 m/s MV DecT: 225 ms MV Dec [place]: 3.7 m/s MV A Gareth: 0.91 m/s MV E/A Ratio: 0.92 MV PHT: 65 ms MR Vmax: 1.06 m/s MR maxP.50 mmHg AV Vmax: 1.48 m/s AV maxP.79 mmHg TR Vmax: 2.39 m/s TR maxP.81 mmHg RAP: 5.00 mmHg RVSP: 27.81 mmHg MV EF SLOPE: 45.57 mm/s (70 - 150) MV EXCURSION: 10.02 mm (> 18.000) FINDINGS -------- This was a technically adequate study. The left ventricular size is normal. Left ventricular wall thickness is normal. Overall left vent ricular systolic function is normal with, an EF between 55 - 60 %. The diastolic filling pattern is normal for the age of the patient 11.07. The right ventricle is normal in size. The left atrial size is normal. Normal LA size by volume 22+/-6 ml/m2. The right atrial size is normal. The aortic valve was not well visualized. The mitral valve is normal. There is trace mitral regurgitation. The tricuspid valve appears structurally normal. [id number]-nf-sygeaomt tricuspid regurgitation present. Right ventricular systolic pressure is normal at < 35 mmHg. There is no pulmonic regurgitation present. The aortic root size is normal. Normal inferior vena cava with normal inspiratory collapse consistent with estimated right atrial pre ssure of 5 mmHg. There is no pericardial effusion. CONCLUSIONS -------- 1. The left ventricular size is normal. 2. Left ventricular wall thickness is normal. 3. Overall left ventricular systolic function is normal with, an EF between 55 - 60 %. 4. The diastolic filling pattern is normal for the age of the patient 11.07 5. There is trace mitral regurgitation. 6. Kxel-va-douwdpru tricuspid regurgitation present. 7. There is no pericardial effusion. WAX MOLDER: Karla Prince RDCS
== END | disposition home or self-care (01) ==
LOC: RADECHMAIN 14:41
PROVIDERS: ATTEND Family Medicine
DX: I07.1 Rheumatic tricuspid insufficiency (principal)
CPT/HCPCS: 93306

== ENCOUNTER → 2020-05-26 | Outpatient (CLI) | payer MEDICARE, BC, OTHER ==
--- NOTE | 2020-05-27 10:47 | MM ---
Reason for exam: screening (asymptomatic). Last mammogram was performed 13 years and 9 months ago. History: Patient is postmenopausal. Physical Findings: A clinical breast exam by your physician is recommended on an annual basis and results should be correlated with mammographic findings. MG 3D Screening Mammo W/Cad Bilateral CC and MLO view(s) were taken. Prior study comparison: March 23, 2019, mammogram, performed at [facility]. March 19, 2018, mammogram, performed at [facility]. March 18, 2017, mammogram, performed at [facility]. August 16, 2006, CAD bilateral diagnostic mammogram. December 19, 2005, workup right diagnostic mammogram. The breast tissue is heterogeneously dense. This may lower the sensitivity of mammography. Stable benign calcifications. There is no discrete abnormality. No significant changes when compared with prior studies. ASSESSMENT: Benign, BI-RAD 2 RECOMMENDATION: Routine screening mammogram of both breasts in 1 year.
== END | disposition home or self-care (01) ==
LOC: RADMAMWWP 15:03
PROVIDERS: ATTEND Family Medicine
DX: Z12.31 Encounter for screening mammogram for malignant neoplasm of breast (principal)
CPT/HCPCS: 77063; 77067

== ENCOUNTER → 2021-01-30 | Outpatient (CLI) | payer MEDICARE, BC, OTHER ==
[2021-01-30 12:20] LABS: Basophils # (A) 0.1 k/uL (0-0.2); Basophils % (A) 1 %; Eosinophils % (A) 1 %; HCT 40.9 % (34.0-46.0); HGB 13.1 gm/dL (11.4-16.0); Lymphocytes # (A) 2.4 k/uL (1.0-4.8); Lymphocytes % (A) 37 %; MCHC 32.1 g/dL (31.0-37.0); MCV 99.8 fL (80.0-100.0); Monocytes # (A) 0.3 k/uL (0-1.0); Monocytes % (A) 5 %; Neutrophils # (A) 3.5 k/uL (1.3-7.7); Neutrophils % (A) 55 %; Platelet Count 375 k/uL (150-450); RDW 12.8 % (11.5-15.5); WBC 6.4 k/uL (3.8-10.6)
[2021-01-30 12:25] LABS: Appearance,Urine Clear (Clear); Bilirubin,Urine Negative (Negative); Blood,Urine Negative (Negative); Color,Urine Light Yellow; Glucose,Urine (UA) Negative (Negative); Ketones,Urine Negative (Negative); Leukocyte Esterase,Urine Negative (Negative); Nitrite,Urine Negative (Negative); Protein,Urine Negative (Negative); Specific Gravity,Urine 1.008 (1.001-1.035); Urobilinogen,Urine <2.0 mg/dL (<2.0)
[2021-01-30 12:48] LABS: INR 0.9 (<1.2); Partial Thromboplastin Time 26.1 sec (22.0-30.0); Prothrombin Time 9.6 sec (9.0-12.0)
[2021-01-30 12:49] LABS: ALT 14 U/L (4-34); AST 22 U/L (14-36); African American GFR (CKD) >90 (>60 ml/min/1.73 sqM); Alkaline Phosphatase 51 U/L (38-126); Anion Gap 9 mmol/L; Blood Urea Nitrogen 20 mg/dL (7-17); Calcium 9.3 mg/dL (8.4-10.2); Carbon Dioxide 24 mmol/L (22-30); Chloride 97 mmol/L (98-107); Glucose 110 mg/dL (74-99); Non-African American GFR(CKD) >90 (>60 ml/min/1.73 sqM); Potassium 4.8 mmol/L (3.5-5.1); Sodium 130 mmol/L (137-145); Total Bilirubin <0.1 mg/dL (0.2-1.3); Total Protein 6.5 g/dL (6.3-8.2)
== END | disposition home or self-care (01) ==
LOC: LABPAT 11:12
PROVIDERS: ATTEND Orthopaedic Surgery
DX: Z01.812 Encounter for preprocedural laboratory examination (principal)
CPT/HCPCS: 36415; 80053; 81003; 85025; 85610; 85730; 87070; 87086

== ENCOUNTER 2021-02-06 05:35 | Inpatient (IN) | payer MEDICARE, BC, OTHER ==
[2021-02-06] MEDS ORDERED: DEXAMETHASONE SOD PHOSPHATE 4 MG/ML 1 ML VIAL IV ONE (05:52)
[2021-02-06] MEDS ORDERED: ONDANSETRON 4 MG/2 ML VIAL IVP ONE (05:52)
[2021-02-06] MEDS ORDERED: HYDROmorphone 0.5 MG/0.5 ML SYRINGE IVP PRN ×3 (05:52→08:53)
[2021-02-06] MEDS: LACTATED RINGERS 1,000 ML IV SCH (06:01)
[2021-02-06] MEDS ORDERED: TRANEXAMIC ACID 1,000 MG in SODIUM CHLORIDE 0.9% 100 ML IVPB ONE ×2 (06:39→06:42)
[2021-02-06] MEDS ORDERED: MELOXICAM 7.5 MG TAB PO ONE (06:40)
[2021-02-06] MEDS ORDERED: GABAPENTIN 300 MG CAP PO ONE (06:40)
[2021-02-06] MEDS ORDERED: ACETAMINOPHEN TAB 500 MG TAB PO ONE (06:49)
[2021-02-06] MEDS ORDERED: PROPOFOL 10 MG/ML 20 ML VIAL IV ONE (06:50)
[2021-02-06] MEDS ORDERED: HYDROmorphone (PF) 1 MG/ML ONE (06:50)
[2021-02-06] MEDS ORDERED: SODIUM CHLORIDE 0.9% IRRIG 1,000 ML BTL IRRIGATION ONE (06:50)
[2021-02-06] MEDS ORDERED: TRANEXAMIC ACID 1,000 MG/10 ML VIAL ONE (06:50)
[2021-02-06] MEDS ORDERED: ACETAMINOPHEN TAB 500 MG TAB ONE (06:50)
[2021-02-06] MEDS ORDERED: HEPARIN SODIUM,PORCINE 10,000 UNIT/ML 1 ML VIAL ONE (06:50)
[2021-02-06] MEDS ORDERED: LIDOCAINE 1% INJ 10MG/ML (20 ML MDV) ONE (06:50)
[2021-02-06] MEDS ORDERED: ROCURONIUM 10 MG/ML (5 ML VIAL) IV ONE (06:50)
[2021-02-06] MEDS ORDERED: SUCCINYLCHOLINE CHLORIDE 100 MG/5 ML SYR IV ONE (06:50)
[2021-02-06] MEDS ORDERED: SODIUM CHLORIDE 0.9% 100 ML BAG ONE (06:50)
[2021-02-06] MEDS ORDERED: MIDAZOLAM 2 MG/2 ML VIAL ONE (06:50)
[2021-02-06] MEDS ORDERED: fentaNYL (PF) 50 MCG/ML 2 ML AMP ONE (06:50)
[2021-02-06] MEDS ORDERED: ceFAZolin 1,000 MG in SODIUM CHLORIDE 0.9% 1,000 ML IRRIGATION ONE (07:26)
[2021-02-06] MEDS: ROPIVACAINE/EPI/CLONIDINE/KET 50 ML SYRINGE MISCELLANE PRN ×2 (07:26→08:24)
[2021-02-06] MEDS ORDERED: LACTATED RINGERS 1,000 ML IV ONE ×3 (08:15→14:00)
--- NOTE | 2021-02-06 08:51 | FL ---
EXAMINATION TYPE: FL guidance operating room, XR Hip Limited LT DATE OF EXAM: 02/06/2021 CLINICAL HISTORY: Left hip pain and osteoarthritis. TECHNIQUE: Fluoroscopy. Intraoperative limited views left hip. COMPARISON: None. FINDINGS: Fluoroscopic guidance was provided during left hip replacement procedure performed by Dr. Chang. A total of 1 minute 36 seconds of fluoroscopic time was utilized during the procedure and 3 spot intraoperative images are acquired. Intraoperative images obtained show metallic hardware from left hip arthroplasty satisfactory in posi tion on frontal projection. IMPRESSION: As Above.
[2021-02-06] MEDS ORDERED: NALOXONE 0.4 MG/ML 1 ML VIAL IV PRN (08:53)
[2021-02-06] MEDS ORDERED: HYDROmorphone 0.2 MG/1 ML SYRINGE IVP PRN (08:53)
[2021-02-06] MEDS ORDERED: ONDANSETRON 4 MG/2 ML VIAL IVP PRN (08:53)
--- NOTE | 2021-02-06 08:53 | P.OP ---
Date of Procedure: 02/06/21 Preoperative Diagnosis: Severe osteoarthritis left hip Postoperative Diagnosis: Severe osteoarthritis left hip Procedure(s) Performed: Left total hip arthroplasty with a direct anterior approach Implants: Platt [employer] Nephew Polarstem standard size 4 Platt [employer] Nephew R3, 3 hole hemispherical acetabular shell, 52 mm Platt [employer] Nephew Reflection 6.5 mm cancellus screw, 20 mm 2 Platt [employer] Nephew R3, XLPE 20 acetabular liner Platt [employer] Nephew Oxinium femoral head 36 m, +0 All components were press-fit. The articulation is Oxinium on polyethylene. Anesthesia: GETA Surgeon: Quinton Chang Planning Feeder #1: Chrystal Argueta Estimated Blood Loss (ml): 180 (77 mL returned with Cell Saver) Pathology: other (Femoral head) Condition: stable Disposition: PACU Indications for Procedure: After failure of conservative treatment we discussed the surgical and nonsurgical treatment options at length. Patient wishes to proceed with a total hip arthroplasty with a direct anterior approach. Complications specific to this procedure were discussed at length, including but not limited to infection, leg length discrepancy, dislocation, nerve injury, and fracture. Covid-19 was also discussed at length with the patient, and they are aware of the current policies and procedures. The patient was given the option of delaying surgery, but they elect to proceed knowing these risks. Patient is aware of all these complications and informed consent was obtained Operative Findings: The operative findings are consistent with severe osteoarthritis the left hip Description of Procedure: Patient was seen and evaluated in the preoperative area and the consent was reviewed. The operative site was marked with a skin marker. The patient was then brought to the operating room and given preoperative antibiotics intravenously. 1 g of Tranexamic acid was also given intravenously. A general anesthetic was administered by the anesthesia department. The patient was then placed on the Melvern table with the bony prominences well-padded. The hip area was then prepped with a ChloraPrep solution and draped in the usual sterile fashion. A universal timeout was then performed, which confirmed the patient's name, surgical site, ALLERGIES, and procedure being performed on the consent. Next the incision site was located at 1 cm distal to the anterior superior iliac spine along the flexion crease of the hip. The skin and subcutaneous tissues were sharply incised. Incision was carefully dissected down to the fascia overlying the tensor fascia rita muscle. This fascia was then incised in line with the incision. Care was taken to stay laterally in order to avoid injuring the lateral femoral cutaneous nerve. Next, using blunt finger dissection, the tensor fascia rita muscle was dissected off its investing fascia. The muscle was then carefully retracted laterally with a cobra retractor over the lateral neck of the femur. Next, the circumflex vessels were identified and cauterized using the AquaMantis device. The anterior hip capsule was then exposed. The capsule was then opened and an inverted T fashion. Cobra retractors were then placed intracapsularly. The retractors were maintained intracapsular throughout the procedure. The proximal femur was then visualized. A small amount of traction was placed on the leg. The femoral neck was then osteotomized appropriate level above the lesser trochanter. A small wedge of bone was then removed from the remaining femoral head. Next, using a corkscrew the femoral head was removed from the acetabulum. On gross visual inspection, the femoral head had complete loss of articular cartilage and multiple periarticular osteophytes. The femoral head was then measured. Attention was then turned to the acetabulum. The acetabulum was exposed and any remaining labrum was excised. Sequential reaming of the acetabulum was performed using fluoroscopic guidance until there was a good bed of bleeding cancellus bone. When the appropriate size was reached, a trial was then placed. The position and fit of the trial was checked with fluoroscopy. The trial was then removed. Then, using fluoroscopic guidance, the final implant was impacted at 20 of anteversion and 40 of abduction, and fully seated in the acetabulum. 2 screws were then placed in the acetabulum. Again fluoroscopy was used to check position of the screws. Next, the liner was then impacted, with a 20 elevated liner located in the anterior superior quadrant. Component locking was confirmed. Attention was then directed to the femur. With the aid of the Melvern table, the femur was externally rotated to approximately 130, extended, and adducted under the opposite leg. A side hook was then placed under the proximal femur, and the side hook elevator was used to elevate the proximal femur while releasing the capsule. Retractors were then placed. A capsular release was performed, as well as a release of the conjoined tendon, which afforded excellent visualization of the proximal femur. Next, a box osteotome was used to lateralize the proximal femur. A merchandise displayer was then used to locate the femoral canal. Sequential broaching was then performed with appropriate size which afforded excellent fixation in the proximal femur. A trial was then placed with appropriate head and neck, and the hip was gently reduced with the aid of the Melvern table. Fluoroscopy was then used to check position of the components, as well as to ensure equal leg lengths. The hip was then gently dislocated and the trials were then removed. Final implants were then impacted and the hip was again reduced. Final fluoroscopic x-rays confirmed that the components were in anatomic position, as well as equal leg lengths. The hip was also taken through range of motion, and found to be stable. The hip was then copiously irrigated with antibiotic solution with pulsatile lavage. The hip was then irrigated with Irrisept solution. The soft tissues were then injected with a ropivacaine solution, which consisted of 246.25 mg of ropivacaine, 0.5 mg of epinephrine, 30 mg of Toradol, 80 g of clonidine, and 48.45 mL of sterile water, for a total of 100 mL of fluid injected. A second dose of 1 g of Tranexamic acid was also given intravenously. Any blood collected by Cell Saver was then returned to the patient at this time. The fascia was then closed with 2-0 strata fix suture. The subcutaneous tissue was closed with 3-0 Vicryl. The subcuticular tissue was closed with 3-0 strata fix suture. The skin was then closed with Exofin skin glue. After the glue and dried, and Optifoam silver impregnated dressing was applied. The patient was then transferred to the recovery room in stable condition. The commissary assistant KARAN Rodriguez was required due to the complexity of surgery, and the need for skilled surgical dressing maker for positioning, draping, exposure, retraction, and closure of the wound.
[2021-02-06] MEDS ORDERED: HYDROcodone/APAP 7.5-325MG 1 EACH TAB PO PRN (08:55)
--- NOTE | 2021-02-06 09:16 | XR ---
Left hip Limited HISTORY: Status post left hip arthroplasty Single frontal view of the left hip Patient is status post left hip arthroplasty, there is anatomic alignment. Lucency is present in the soft tissues. Surgical mary present within the pelvis noted incidentally. IMPRESSION: Orthopedic follow-up
--- NOTE | 2021-02-06 14:31 | XR ---
Left hip Limited HISTORY: Left hip arthroplasty, trauma and pain Frontal view of the left hip correlated to prior exam on same date earlier time There is been interval fracture with some displacement of the greater trochanter. At the level of the proximal diaphyseal left femur there is also fracture with angulation. No evident dislocation. IMPRESSION: Fracture proximal left femur and also greater trochanter
[2021-02-06] MEDS: SODIUM CHLORIDE 0.9% 1,000 ML IV SCH (14:32)
[2021-02-06] MEDS ORDERED: MECLIZINE 12.5 MG TAB PO PRN (17:40)
--- NOTE | 2021-02-06 17:40 | P.CONS ---
History of Present Illness - Reason for Consult Consult date: 02/06/21 Medical management - Chief Complaint Hip pain - History of Present Illness 75-year-old woman with medical history of ALLERGIC rhinitis, vertigo, osteoarthritis presented for elective hip repair left hip. Medicine was consult for medical management. Patient was doing well postoperatively today, however, after her surgery and during her recovery, she had a fall which resulted in a periprosthetic hip fracture of the left hip warranting her admission for further management. Patient has no complaints at this time other than hip pain. Her past medical history significant for ALLERGIC rhinitis, osteoarthritis, vertigo for which she has meclizine when necessary. She presently denies fevers, chills, nausea, vomiting, chest pain, palpitations, syncope, presyncope, cough, dyspnea, abdominal pain, diarrhea, constipation, dysuria, dyschezia, numbness/weakness of extremities. Review of Systems All Systems reviewed and pertinent positives and negatives noted in HPI, all other symptoms are negative Past Medical History Past Medical History: GERD/Reflux, Osteoarthritis (OA), Skin Disorder Additional Past Medical History / Comment(s): heart murmer, eczema, "bladder leakage", vertigo History of Any Multi-Drug Resistant Organisms: None Reported Past Surgical History: Cholecystectomy, Joint Replacement, Tonsillectomy, Tubal Ligation Additional Past Surgical History / Comment(s): rasta knee replacements, rasta CATARACTS removed Past Anesthesia/Blood Transfusion Reactions: No Reported Reaction Additional Past Anesthesia/Blood Transfusion Reaction / Comm: . Past Psychological History: No Psychological Hx Reported Smoking Status: Never smoker Past Alcohol Use History: None Reported Past Drug Use History: None Reported - Past Family History Mother Family Medical History: Cancer Additional Family Medical History / Comment(s): large cell lymphoma Brother(s) Family Medical History: Cancer Additional Family Medical History / Comment(s): lung Medications and Allergies Home Medications Medication Instructions Recorded Confirmed Type Acetaminophen [Tylenol Arthritis] 1,300 mg PO HS 09/04/18 02/06/21 History Ascorbic Acid [Vitamin C] 1,000 mg PO DAILY 09/04/18 02/01/21 History Aspirin 81 mg PO DAILY 09/04/18 02/01/21 History Cetirizine HCl 10 mg PO HS 09/04/18 02/06/21 History Cholecalciferol [Vitamin D3 (25 1,000 unit PO DAILY 09/04/18 02/01/21 History Mcg = 1000 Iu)] Melatonin 5 mg PO HS 09/04/18 02/01/21 History Multivit/Folic Acid/Vit K1 1 tab PO DAILY 09/04/18 02/01/21 History [One-A-Day Women's 50 Plus Tab] Hinckley-3 Fatty Acids [Hinckley-3] 1,000 mg PO HS 09/04/18 02/01/21 History Oxybutynin Chloride 5 mg PO HS 09/04/18 02/06/21 History Ubidecarenone [Co Q-10] 100 mg PO DAILY 09/04/18 02/01/21 History Vitamin B Complex 1 cap PO DAILY 09/04/18 02/01/21 History Vitamin E (Dl,Tocopheryl Acet) 400 unit PO DAILY 09/04/18 02/01/21 History [Vitamin E (400 Iu = 180 mg)] Calcium Carbonate 1,500 mg PO DAILY 09/16/18 02/01/21 History Magnesium Oxide [Mag-Ox] 250 mg PO HS 09/16/18 02/01/21 History Meclizine [Antivert] 12.5 mg PO Q6H PRN #30 tablet 01/24/20 02/06/21 Rx Triamcinolone 0.1% Ointment 1 applic TOPICAL DIRECTED PRN 02/01/21 02/06/21 History [Kenalog 0.1% Ointment] Triamcinolone Acetonide [Nasacort] 1 spray EA NOSTRIL BID 02/01/21 02/06/21 History Aspirin 325 mg PO BID #60 tab 02/06/21 Rx HYDROcodone/APAP 7.5-325MG [[place] 1 - 2 tab PO Q6H PRN #32 tab 02/06/21 Rx 7.5-325] Ondansetron Odt [Zofran Odt] 1 tab PO Q8HR PRN #10 tab 02/06/21 Rx Sennosides [Senokot] 2 tab PO DAILY PRN #60 tablet 02/06/21 Rx Allergies Allergy/AdvReac Type Severity Reaction Status Date / Time albuterol Allergy Rapid Verified 02/01/21 09:30 Heart Rate,throat and tongue pain casey Allergy Rash/Hives, Verified 02/01/21 09:30 nausea neomycin Allergy Itching/red Verified 02/01/21 09:30 skin Sulfa (Sulfonamide Allergy ringing in Verified 02/01/21 09:30 Antibiotics) ears and balance is off/SOB wool Allergy Rash/Hives Verified 02/01/21 09:30 flowering trees Allergy Unknown Uncoded 02/01/21 09:30 Physical Exam Osteopathic Statement: *. No significant issues noted on an osteopathic structural exam other than those noted in the History and Physical/Consult. Vitals: Vital Signs Temp Pulse Pulse Resp BP Pulse Ox 02/06/21 14:52 97.5 F L 78 16 91/52 94 L 02/06/21 14:32 64 16 112/55 93 L 02/06/21 13:58 74 16 119/53 96 02/06/21 13:38 79 16 132/69 97 02/06/21 13:19 70 16 109/54 100 02/06/21 12:16 69 16 127/66 98 02/06/21 11:30 59 L 16 124/65 99 02/06/21 10:50 55 L 16 133/61 98 02/06/21 10:20 58 L 16 147/65 98 02/06/21 09:52 61 16 153/61 98 02/06/21 09:38 57 L 16 107/57 96 02/06/21 09:30 55 L 18 153/68 98 02/06/21 09:16 64 16 143/64 96 02/06/21 09:00 55 L 16 138/63 100 02/06/21 08:48 98 F 71 16 138/63 100 02/06/21 06:04 97.1 F L 16 135/61 98 Intake and Output 02/06/21 02/06/21 02/06/21 06:59 14:59 22:59 Intake Total 850 1051 Output Total 180 Balance 850 871 Intake: IV 850 1051 Output: Estimated Blood Loss 180 Other: # Voids 3 Weight 57.7 kg 57.7 kg Gen: awake, alert HEENT: normocephalic, atraumatic, good hearing acuity, moist mucous membranes Resp: good air exchange, breathing comfortably with no accessory muscle use CVS: good distal perfusion x 4, GI: soft, NTTP, ND : no SPT, no CVAT, yeh catheter not present MSK: no pitting edema, no clubbing Neuro: non-focal, moving all extremities Psych: cooperative, euthymic mood Assessment and Plan Assessment: ALLERGIC rhinitis Vertigo -Home medications reviewed and reconciled -Resume fluticasone nasal spray -Meclizine when necessary -Resume home vitamins Periprosthetic fracture of the left hip Osteoarthritis -DVT Prophylaxis and management per primary team
[2021-02-06] MEDS ORDERED: NON FORMULARY DRUG (Omega-3 Fatty Acids [Omega-3] 1,000 MG Capsule) PO SCH (21:00)
[2021-02-06] MEDS: LORATADINE 10 MG TAB PO SCH (21:58)
[2021-02-06] MEDS: ASPIRIN 325 MG TAB PO SCH (21:58)
[2021-02-06] MEDS: OXYBUTYNIN CHLORIDE 5 MG TAB PO SCH (21:58)
[2021-02-06] MEDS: FLUTICASONE 50MCG/SPRAY NASAL 16GM EA NOSTRIL SCH (21:58)
[2021-02-06] MEDS: MAGNESIUM OXIDE 400 MG TAB PO SCH (21:58)
[2021-02-06] MEDS: MELATONIN 5 MG TABLET PO SCH (21:58)
[2021-02-06] MEDS: ACETAMINOPHEN TAB 500 MG TAB PO SCH (21:59)
[2021-02-07] MEDS ORDERED: SODIUM CHLORIDE 0.9% 500 ML 500 ML IV ONE (02:14)
[2021-02-07] MEDS: SODIUM CHLORIDE 0.9% 1,000 ML IV SCH ×3 (04:55→21:37)
--- NOTE | 2021-02-07 08:54 | P.PN ---
Subjective Progress Note Date: 02/07/21 This is a 75-year-old female who is status post left total hip arthroplasty. This is postoperative day #1 and patient is seen and evaluated at bedside with Dr. Quinton Chang today. Patient states that in the postop area on 02/06/2021 she was able to successfully walk and climb stairs with physical therapy. Patient states that when she was getting dressed to discharge home she fell. An x-ray of the left hip taken after the patient fell revealed a periprosthetic fracture of the left femur. Patient states that her pain is controlled today as long as the leg is not moved. Otherwise, patient denies any new complaints today. Patient denies any fever/chills, numbness, weakness, tingling, abdominal pain, shortness of breath or chest pain. Objective - Vital Signs Vital signs: Vital Signs Temp 98.1 F 02/07/21 08:00 Pulse 67 02/07/21 08:00 Resp 18 02/07/21 08:00 BP 123/59 02/07/21 08:00 Pulse Ox 99 02/07/21 08:00 Intake & Output 02/06/21 02/07/21 02/07/21 18:59 06:59 18:59 Intake Total 1051 Output Total 180 1999 Balance 871 -2000 Weight 57.7 kg Intake: IV 1051 Output: Urine 2000 Estimated Blood Loss 180 Other: Voiding Method Indwelling Catheter # Voids 3 - Exam Vital signs are stable. Patient is in no acute distress and is alert and oriented 3. Calf is soft and nontender to palpation. Dressing is clean, dry, and intact. Patient has full foot and ankle motion without pain or difficulty. Sensation intact. Neurovascular status and circulatory status are intact. Assessment and Plan (1) Osteoarthritis of left hip Current Visit: Yes Status: Acute Code(s): M16.12 - UNILATERAL PRIMARY OSTEOARTHRITIS, LEFT HIP SNOMED Code(s): 865249140449180 (2) Status post total hip replacement, left Current Visit: Yes Status: Acute Code(s): Z96.642 - PRESENCE OF LEFT ARTIFICIAL HIP JOINT SNOMED Code(s): 596743377670 (3) Periprosthetic fracture around internal prosthetic left hip joint, initial encounter Current Visit: Yes Status: Acute Code(s): M97.02XA - PERIPROSTH FRACTURE AROUND INTERNAL PROSTH L HIP JT, INIT SNOMED Code(s): 846440919 Plan: Continue routine postop care and pain control. Patient is to be nonweightbearing to the left lower extremity. Appreciate input from medicine. Planning for ORIF of the left hip later today by Dr. Quinton Chang.
[2021-02-07] MEDS ORDERED: NON FORMULARY DRUG (Ubidecarenone [Co Q-10] 100 MG Capsule) PO SCH (09:00)
[2021-02-07] MEDS ORDERED: NON FORMULARY DRUG (Vitamin B Complex [Vitamin B Complex] 1 EACH Capsule) PO SCH (09:00)
[2021-02-07] MEDS ORDERED: LACTATED RINGERS 1,000 ML IV ONE ×3 (10:29→14:39)
[2021-02-07] MEDS ORDERED: IV FLUID CONTINUATION 1,000 ML IV ONE (10:29)
[2021-02-07 11:03] LABS: Basophils # (A) 0.02 X 10*3/uL (0.00-0.10); Basophils % (A) 0.3 %; Eosinophils # (A) 0.01 X 10*3/uL (0.04-0.35); Eosinophils % (A) 0.1 %; HCT 26.5 % (37.2-46.3); HGB 8.7 g/dL (12.0-15.0); Lymphocytes # (A) 2.88 X 10*3/uL (0.90-5.00); Lymphocytes % (A) 41.4 %; MCH 32.6 pg (27.0-32.0); MCHC 32.8 g/dL (32.0-37.0); MCV 99.3 fL (80.0-97.0); Mean Platelet Volume 9.1 fL (9.5-12.2); Monocytes # (A) 0.78 X 10*3/uL (0.20-1.00); Monocytes % (A) 11.2 %; Neutrophils # (A) 3.25 X 10*3/uL (1.80-7.70); Neutrophils % (A) 46.7 %; Platelet Count 266 X 10*3/uL (140-440); RBC 2.67 X 10*6/uL (4.10-5.20); RDW 13.2 % (11.5-14.5); WBC 6.96 X 10*3/uL (4.50-10.00)
[2021-02-07] MEDS ORDERED: PROPOFOL 10 MG/ML 20 ML VIAL IV ONE (11:40)
[2021-02-07] MEDS ORDERED: ROCURONIUM 10 MG/ML (5 ML VIAL) IV ONE (11:40)
[2021-02-07] MEDS ORDERED: LIDOCAINE 1% INJ 10MG/ML (20 ML MDV) ONE (11:40)
[2021-02-07] MEDS ORDERED: SUCCINYLCHOLINE CHLORIDE 100 MG/5 ML SYR IV ONE (11:40)
[2021-02-07] MEDS ORDERED: NEOSTIGMINE 1 MG/ML 10 ML VIAL ONE (11:40)
[2021-02-07] MEDS ORDERED: GLYCOPYRROLATE 0.2 MG/ML 2 ML VIAL ONE (11:40)
[2021-02-07] MEDS ORDERED: HYDROmorphone (PF) 1 MG/ML ONE (11:40)
[2021-02-07] MEDS ORDERED: fentaNYL (PF) 50 MCG/ML 2 ML AMP ONE (11:40)
[2021-02-07] MEDS ORDERED: PHENYLEPHRINE-0.9% NACL SYG 1,000 MCG/10 ML SYRINGE ONE (11:40)
[2021-02-07] MEDS ORDERED: MIDAZOLAM 2 MG/2 ML VIAL ONE (11:40)
[2021-02-07] MEDS ORDERED: MAGNESIUM HYDROXIDE 2,400 MG/10 ML CUP PO PRN (11:42)
[2021-02-07] MEDS ORDERED: NALOXONE 0.4 MG/ML 1 ML VIAL IV PRN (11:42)
[2021-02-07] MEDS ORDERED: ONDANSETRON 4 MG/2 ML VIAL IVP PRN (11:42)
[2021-02-07] MEDS: CALCIUM CARBONATE 500 MG CHEWABLE PO SCH (12:09)
[2021-02-07] MEDS: ASCORBIC ACID 500 MG TAB PO SCH (12:09)
[2021-02-07] MEDS: LACTATED RINGERS 1,000 ML IV SCH (12:09)
[2021-02-07] MEDS: MULTIVITAMINS, THERA 1 EACH TAB PO SCH (12:10)
[2021-02-07] MEDS: VITAMIN E (DL,TOCOPHERYL ACET) 400 UNIT (180 MG) CAP PO SCH (12:10)
[2021-02-07] MEDS: CHOLECALCIFEROL 25 MCG (1000 IU) TABLET PO SCH (12:10)
[2021-02-07] MEDS: FLUTICASONE 50MCG/SPRAY NASAL 16GM EA NOSTRIL SCH ×2 (12:10→21:37)
[2021-02-07] MEDS ORDERED: ceFAZolin 1,000 MG in SODIUM CHLORIDE 0.9% 1,000 ML IRRIGATION ONE (12:34)
--- NOTE | 2021-02-07 14:13 | P.OP ---
Date of Procedure: 02/07/21 Preoperative Diagnosis: Periprosthetic fracture left femur status post left total hip arthroplasty Postoperative Diagnosis: Periprosthetic fracture left femur status post left total hip arthroplasty Procedure(s) Performed: 1. Open reduction internal fixation left femur periprosthetic fracture 2. Revision left total hip arthroplasty Implants: Platt & Nephew readapt femoral standard offset size 17, 190 mm revision femoral component Platt & Nephew cord 2.0 mm cable with clamp 5 [employer] Nephew Oxinium femoral head 36 m, +4 All components were press-fit. The articulation is Oxinium on polyethylene. Anesthesia: GETA Surgeon: Quinton Chang Pension Examiner #1: Chrystal Argueta Estimated Blood Loss (ml): 700 Pathology: none sent Condition: stable Disposition: PACU Indications for Procedure: This is a 75-year-old female that had a left total hip arthroplasty with a direct anterior approach yesterday. She just finished her physical therapy session which included walking in the hallway and walking up and down stairs when she returned to her room to change are clothes. Her leg apparently gave out on her and she landed on the floor was unable to move. X-rays were obtained which showed a periprosthetic fracture of her left femur. The patient was then seen and evaluated and after discussing the surgical and nonsurgical treatment options at length, I recommended open reduction and internal fixation of her periprosthetic femur fracture as well as a revision of her femoral component. She is agreeable to this informed consent was obtained. Operative Findings: The operative findings are consistent with a comminuted spiral periprosthetic fracture of the left femur Description of Procedure: Patient was seen and evaluated in the preoperative area and the consent was reviewed. The operative site was marked with a skin marker. The patient was then brought to the operating room and given preoperative antibiotics intravenously. A general anesthetic was administered by the anesthesia department. The patient was then placed on the Wagoner table with the bony prominences well-padded. The hip area was then prepped with a ChloraPrep solution and draped in the usual sterile fashion. A universal timeout was then performed, which confirmed the patient's name, surgical site, ALLERGIES, and procedure being performed on the consent. An incision was then made on the lateral aspect of the upper thigh. Incision was carefully dissected down to the fascia rita, which was then split in line with the incision. The vastus fascia was then opened, and the incision was bluntly dissected down to the femur. Fracture was readily visualized and with the aid of retractors or bone clamps, the fracture was reduced. Cables were then placed across the femur and tightened. Fluoroscopic x-rays confirmed reduction of the fracture. Attention was then directed to the hip. Next the prior incision site was located at 1 cm distal to the anterior superior iliac spine along the flexion crease of the hip. The skin and subcutaneous tissues were opened through the prior incision. Incision was carefully dissected down to the fascia overlying the tensor fascia rita muscle. This fascia was then opened. The muscle was then carefully retracted laterally with a cobra retractor over the lateral neck of the femur. The proximal femur was then visualized. A small am ount of traction was placed on the leg. The hip was then gently dislocated and the prior femoral component was easily removed. Attention was then directed to the femur. With the aid of the Wagoner table, the femur was externally rotated to approximately 130, extended, and adducted under the opposite leg. A side hook was then placed under the proximal femur, and the side hook elevator was used to elevate the proximal femur while releasing the capsule. Retractors were then placed. A handkerchief sample clerk was then used to locate the femoral canal. Sequential reaming was then performed to the appropriate size which afforded excellent fixation in the femur. A trial was then placed with appropriate head and neck, and the hip was gently reduced with the aid of the Wagoner table. Fluoroscopy was then used to check position of the components, as well as to ensure equal leg lengths. The hip was then gently dislocated and the trials were then removed. Final implants were then impacted and the hip was again reduced. Final fluoroscopic x-rays confirmed that the components were in anatomic position, as well as equal leg lengths. The hip was also taken through range of motion, and found to be stable. The hip was then copiously irrigated with antibiotic solution with pulsatile lavage. The hip was then irrigated with Irrisept solution. The fascia was then closed with 2-0 strata fix suture. The subcutaneous tissue was closed with 3-0 Vicryl. The subcuticular tissue was closed with 3-0 strata fix suture. The skin was then closed with Exofin skin glue. After the glue and dried, and Optifoam silver impregnated dressing was applied. The patient was then transferred to the recovery room in stable condition. The assistant store director KARAN Rodriguez was required due to the complexity of surgery, and the need for skilled surgical resident for positioning, draping, exposure, retraction, and closure of the wound.
--- NOTE | 2021-02-07 15:03 | FL ---
Fluoroscopy HISTORY: Hip arthroplasty 57 seconds fluoroscopy time supplied to the referring clinician. 8 intraoperative C-arm images docum ent the procedure. See dictated report from orthopedic surgery.
--- NOTE | 2021-02-07 15:51 | XR ---
Limited left hip HISTORY: Postop Single frontal view of the left hip correlated prior exam 02/06/2021 There is been interval revision of patient's hip arthroplasty, cerclage wires have been placed, align ment has been improved at the proximal femoral fracture in this single view. There is lucency in the soft tissues. Persistent greater trochanter fracture noted. IMPRESSION: Orthopedic follow-up.
[2021-02-07 17:22] LABS: Basophils % (A) 0 %; Eosinophils % (A) 0 %; HCT 26.2 % (34.0-46.0); Lymphocytes # (A) 1.2 k/uL (1.0-4.8); Lymphocytes % (A) 21 %; MCH 32.9 pg (25.0-35.0); MCHC 32.9 g/dL (31.0-37.0); MCV 100.1 fL (80.0-100.0); Mean Platelet Volume 6.5; Monocytes # (A) 0.3 k/uL (0-1.0); Monocytes % (A) 5 %; Neutrophils # (A) 4.3 k/uL (1.3-7.7); Neutrophils % (A) 73 %; Platelet Count 308 k/uL (150-450); RBC 2.62 m/uL (3.80-5.40); RDW 13.3 % (11.5-15.5); WBC 5.9 k/uL (3.8-10.6)
[2021-02-07 17:24] LABS: HGB 8.6 gm/dL (11.4-16.0)
--- NOTE | 2021-02-07 18:05 | P.PN ---
Subjective Progress Note Date: 02/07/21 Principal diagnosis: hip pain Patient is a 75-year-old female with a history of ALLERGIC rhinitis, vertigo, and osteoarthritis who presetned for elective LAVONNE. She was doing well postoperatively however she did have a fall which resulted in a periprosthetic left hip fracture. She underwent repeat operative repair on 02/07 without any immediate postoperative complications. Patient seen and examined at bedside. No chest pain, SOB, or nausea. Pain is controlled. General: non toxic, no distress, appears at stated age Derm: warm, dry Head: atraumatic, normocephalic, symmetric Eyes: EOMI, no lid lag, anicteric sclera Mouth: no lip lesion, mucus membranes moist Cardiovascular: S1S2 reg, no murmur, positive posterior tibial pulse bilateral, Lungs: Decreased breath sounds bilateral, no rhonchi, no rales , no accessory muscle use Abdominal: soft, nontender to palpation, no guarding, no appreciable organomegaly Ext: no gross muscle atrophy, trace edema, no contractures Neuro: CN II-XI grossly intact, no focal neuro deficits Psych: Alert, oriented, appropriate affect 75-year-old female status post periprosthetic fracture of the left hip with operative repair. Being managed by orthopedic surgery. Acute blood loss anemia -Check iron studies -Repeat CBC in a.m. -No indication for transfusion at this time Vertigo -As needed meclizine ALLERGIC rhinitis -Fluticasone nasal spray Thank you for allowing us to participate in the care of this pleasant patient. Do not hesitate to contact us with questions. Someone can be reached from the [facility] hospitalist group all hours of the day at [phone] or via perfect serve. Objective - Vital Signs Vital signs: Vital Signs Temp 97.3 F L 02/07/21 10:35 Pulse 57 L 02/07/21 15:32 Resp 16 02/07/21 15:32 BP 97/49 02/07/21 15:32 Pulse Ox 98 02/07/21 15:32 Intake & Output 02/06/21 02/07/21 02/07/21 18:59 06:59 18:59 Intake Total 1051 2691 Output Total 180 1999 1375 Balance 871 -1999 1316 Weight 57.7 kg Intake: IV 1051 2151 Oral 540 Output: Urine 1999 675 Estimated Blood Loss 180 700 Other: Voiding Method Indwelling Catheter Indwelling Catheter # Voids 3 - Labs CBC & Chem 7: 02/07/21 16:49 Labs: Abnormal Lab Results - Last 24 Hours (Table) 02/07/21 02/07/21 Range/Units 06:44 16:49 RBC 2.67 L 2.62 L (4.10-5.20) X 10*6/uL Hgb 8.7 L 8.6 L D (12.0-15.0) g/dL Hct 26.5 L 26.2 L (37.2-46.3) % MCV 99.3 H 100.1 H (80.0-97.0) fL MCH 32.6 H (27.0-32.0) pg MPV 9.1 L (9.5-12.2) fL Eosinophils # 0.01 L (0.04-0.35) X 10*3/uL
[2021-02-07] MEDS: ASPIRIN 325 MG TAB PO SCH (18:14)
[2021-02-07] MEDS: MELATONIN 5 MG TABLET PO SCH (21:36)
[2021-02-07] MEDS: OXYBUTYNIN CHLORIDE 5 MG TAB PO SCH (21:36)
[2021-02-07] MEDS: MAGNESIUM OXIDE 400 MG TAB PO SCH (21:36)
[2021-02-07] MEDS: ACETAMINOPHEN TAB 500 MG TAB PO SCH (21:36)
[2021-02-07] MEDS: LORATADINE 10 MG TAB PO SCH (21:36)
[2021-02-07] MEDS: SENNOSIDES-DOCUSATE SODIUM 1 EACH TAB PO SCH (21:36)
[2021-02-08] MEDS: SODIUM CHLORIDE 0.9% 1,000 ML IV SCH ×2 (04:21→14:58)
[2021-02-08] MEDS: LACTATED RINGERS 1,000 ML IV SCH (07:15)
[2021-02-08] MEDS: HYDROcodone/APAP 7.5-325MG 1 EACH TAB PO PRN (07:42)
[2021-02-08] MEDS: FLUTICASONE 50MCG/SPRAY NASAL 16GM EA NOSTRIL SCH ×2 (07:42→21:07)
[2021-02-08] MEDS: ASCORBIC ACID 500 MG TAB PO SCH (07:46)
[2021-02-08] MEDS: CALCIUM CARBONATE 500 MG CHEWABLE PO SCH (07:50)
[2021-02-08] MEDS: CHOLECALCIFEROL 25 MCG (1000 IU) TABLET PO SCH (07:50)
[2021-02-08] MEDS: MULTIVITAMINS, THERA 1 EACH TAB PO SCH (07:50)
[2021-02-08] MEDS: VITAMIN E (DL,TOCOPHERYL ACET) 400 UNIT (180 MG) CAP PO SCH (07:50)
[2021-02-08] MEDS: RIVAROXABAN 10 MG TAB PO SCH (07:50)
[2021-02-08 07:57] LABS: African American GFR (CKD) >90 (>60 ml/min/1.73 sqM); Anion Gap 2 mmol/L; Blood Urea Nitrogen 10 mg/dL (7-17); Calcium 7.5 mg/dL (8.4-10.2); Carbon Dioxide 25 mmol/L (22-30); Chloride 101 mmol/L (98-107); Glucose 113 mg/dL (74-99); Non-African American GFR(CKD) >90 (>60 ml/min/1.73 sqM); Potassium 4.1 mmol/L (3.5-5.1); Sodium 128 mmol/L (137-145)
[2021-02-08 08:26] LABS: Basophils % (A) 0 %; Eosinophils % (A) 0 %; HCT 20.7 % (34.0-46.0); Lymphocytes # (A) 1.6 k/uL (1.0-4.8); Lymphocytes % (A) 31 %; MCHC 33.5 g/dL (31.0-37.0); MCV 98.7 fL (80.0-100.0); Mean Platelet Volume 6.9; Monocytes # (A) 0.4 k/uL (0-1.0); Monocytes % (A) 7 %; Neutrophils # (A) 3.1 k/uL (1.3-7.7); Neutrophils % (A) 60 %; Platelet Count 255 k/uL (150-450); RDW 12.9 % (11.5-15.5); WBC 5.1 k/uL (3.8-10.6)
[2021-02-08 08:33] LABS: HGB 6.9 gm/dL (11.4-16.0)
--- NOTE | 2021-02-08 10:45 | P.PN ---
Subjective Progress Note Date: 02/08/21 This patient is a 75-year-old female who is status-post left total hip arthroplasty on 02/06/31. Patient was getting dressed to discharge home, and she fell. An x-ray of the left hip taken after patient fell revealed a periprosthetic fracture of the left femur. Patient was then taken to the operating room yesterday on 02/07/21 for open reduction internal fixation left femur periprosthetic fracture, and revision left total hip arthroplasty. Today is postoperative day #1. The patient is seen and examined bedside this morning. She is up to the bedside chair. She states she feels tired and weak. Patient's hemoglobin was noted to be 6.9. One unit of PRBCs has been ordered per Dr. Littlejohn. Patient states pain in the left hip is well controlled at this time. She denies current chest pain, shortness breath, nausea, vomiting, fevers, chills. No complaints this morning. Vital signs stable, patient is mildly tachycardic. Objective - Vital Signs Vital signs: Vital Signs Temp 98.5 F 02/08/21 08:00 Pulse 101 H 02/08/21 08:00 Resp 13 02/08/21 08:00 BP 102/57 02/08/21 08:00 Pulse Ox 94 L 02/08/21 08:00 Intake & Output 02/07/21 02/08/21 02/08/21 18:59 06:59 18:59 Intake Total 2691 Output Total 1375 500 Balance 1316 -500 Intake: IV 2151 Oral 540 Output: Urine 675 500 Estimated Blood Loss 700 Other: Voiding Method Indwelling Catheter Indwelling Catheter - Exam On examination, the patient sitting up in a bedside chair in no apparent distress. She is alert and oriented 3. On inspection of the left hip, there are two clean, dry, intact Optifoam dressings in place. No bleeding or drainage through the dressing. Mild swelling of the thigh. Thigh is soft and compressible. Left lower extremity is warm and well perfused with brisk capillary refill distally. Motor and sensory function is intact of the left lower extremity. The calves are soft and nontender to palpation bilaterally. - Labs CBC & Chem 7: 02/08/21 06:24 02/08/21 06:24 Labs: Abnormal Lab Results - Last 24 Hours (Table) 02/07/21 02/07/21 02/08/21 Range/Units 06:44 16:49 06:24 RBC 2.67 L 2.62 L 2.10 L (4.10-5.20) X 10*6/uL Hgb 8.7 L 8.6 L D 6.9 L* D (12.0-15.0) g/dL Hct 26.5 L 26.2 L 20.7 L (37.2-46.3) % MCV 99.3 H 100.1 H (80.0-97.0) fL MCH 32.6 H (27.0-32.0) pg MPV 9.1 L (9.5-12.2) fL Eosinophils # 0.01 L (0.04-0.35) X 10*3/uL Sodium (137-145) mmol/L Creatinine (0.52-1.04) mg/dL Glucose (74-99) mg/dL Osmolality (280-301) mosm/kg Calcium (8.4-10.2) mg/dL Crossmatch 02/08/21 02/08/21 02/08/21 Range/Units 06:24 06:24 09:09 RBC (4.10-5.20) X 10*6/uL Hgb (12.0-15.0) g/dL Hct (37.2-46.3) % MCV (80.0-97.0) fL MCH (27.0-32.0) pg MPV (9.5-12.2) fL Eosinophils # (0.04-0.35) X 10*3/uL Sodium 128 L (137-145) mmol/L Creatinine 0.47 L (0.52-1.04) mg/dL Glucose 113 H (74-99) mg/dL Osmolality 269 L (280-301) mosm/kg Calcium 7.5 L (8.4-10.2) mg/dL Crossmatch See Detail Assessment and Plan Assessment: Status-post left total hip arthroplasty on 02/06/21 with post-operative fall, resulting in periprosthetic fracture of the left femur. Status-post open reduction internal fixation left femur periprosthetic fracture, and revision left total hip arthroplasty on 02/07/21. Post-operative day #1. Acute blood loss anemia. Plan: - 50% weightbearing on the operative extremity. Up with assistance, up with a walker. - Physical therapy for gait and balance training. - PRBCs ordered per internal medicine. We will continue to monitor hemoglobin. - Appreciate input from internal medicine. - Pain management as needed. - Xarelto for DVT prophylaxis. - anticipate discharge over the next 24-48 hours, pending medical clearance.
[2021-02-08 12:22] LABS: Ferritin 89.9 ng/mL (10.0-291.0)
[2021-02-08 12:27] LABS: % Iron Saturation 3.03 (12.00-45.00); Iron 6 ug/dL (50-170); Total Iron Binding Capacity 198 ug/dL (228-460)
[2021-02-08 13:04] LABS: African American GFR (CKD) >90 (>60 ml/min/1.73 sqM); Anion Gap 3 mmol/L; Blood Urea Nitrogen 10 mg/dL (7-17); Calcium 8.2 mg/dL (8.4-10.2); Carbon Dioxide 22 mmol/L (22-30); Chloride 100 mmol/L (98-107); Glucose 155 mg/dL (74-99); Non-African American GFR(CKD) >90 (>60 ml/min/1.73 sqM); Sodium 125 mmol/L (137-145)
[2021-02-08 13:14] LABS: Potassium 4.6 mmol/L (3.5-5.1)
--- NOTE | 2021-02-08 14:15 | P.PN ---
Subjective Progress Note Date: 02/08/21 (delayed charting seen at 1115) Principal diagnosis: hip pain Patient is a 75-year-old female with a history of ALLERGIC rhinitis, vertigo, and osteoarthritis who presetned for elective LAVONNE. She was doing well postoperatively however she did have a fall which resulted in a periprosthetic left hip fracture. She underwent repeat operative repair on 02/07 without any im mediate postoperative complications. on 02/08 her Hgb was 6.9 and her sodium was 128. She was ordered 1 unit of pRBC. Patient seen and examined at bedside. At the time of evaluation no chest pain, SOB, nausea, pain is controlled General: non toxic, no distress, appears at stated age Derm: warm, dry Head: atraumatic, normocephalic, symmetric Eyes: EOMI, no lid lag, anicteric sclera Mouth: no lip lesion, mucus membranes moist Cardiovascular: S1S2 reg, no murmur, positive posterior tibial pulse bilateral, Lungs: Decreased breath sounds bilateral, no rhonchi, no rales , no accessory muscle use Abdominal: soft, nontender to palpation, no guarding, no appreciable organomegaly Ext: no gross muscle atrophy, trace edema, no contractures Neuro: CN II-XI grossly intact, no focal neuro deficits Psych: Alert, oriented, appropriate affect 75-year-old female status post periprosthetic fracture of the left hip with operative repair. Being managed by orthopedic surgery. Acute blood loss anemia, with iron deficiency anemia - IV iron, outpatient,outpatient GI evaluation from PCP - 1 unit pRBC today -Repeat CBC in a.m. Hyponatremia - serial sodium - check urine sodium and urine lytes - consult nephrology Vertigo -As needed meclizine ALLERGIC rhinitis -Fluticasone nasal spray Thank you for allowing us to participate in the care of this pleasant patient. Do not hesitate to contact us with questions. Someone can be reached from the [facility] hospitalist group all hours of the day at [phone] or via perfect serve. Objective - Vital Signs Vital signs: Vital Signs Temp 97.3 F L 02/08/21 12:11 Pulse 96 02/08/21 12:11 Resp 18 02/08/21 12:11 BP 93/56 02/08/21 12:11 Pulse Ox 96 02/08/21 12:11 Intake & Output 02/07/21 02/08/21 02/08/21 18:59 06:59 18:59 Intake Total 2691 0 Output Total 1375 500 Balance 1316 -500 0 Intake: IV 2151 Oral 540 Blood Product 0 Rc As-1 Unit 0 [id number] Output: Urine 675 500 Estimated Blood Loss 700 Other: Voiding Method Indwelling Catheter Indwelling Catheter Indwelling Catheter - Labs CBC & Chem 7: 02/08/21 06:24 02/08/21 12:07 Labs: Abnormal Lab Results - Last 24 Hours (Table) 02/07/21 02/08/21 02/08/21 Range/Units 16:49 06:24 06:24 RBC 2.62 L 2.10 L (3.80-5.40) m/uL Hgb 8.6 L D 6.9 L* D (11.4-16.0) gm/dL Hct 26.2 L 20.7 L (34.0-46.0) % MCV 100.1 H (80.0-100.0) fL Sodium 128 L (137-145) mmol/L Creatinine 0.47 L (0.52-1.04) mg/dL Glucose 113 H (74-99) mg/dL Osmolality (280-301) mosm/kg Calcium 7.5 L (8.4-10.2) mg/dL Iron 6 L (50-170) ug/dL TIBC 198 L (228-460) ug/dL % Saturation 3.03 L (12.00-45.00) Crossmatch 02/08/21 02/08/21 02/08/21 Range/Units 06:24 09:09 12:07 RBC (3.80-5.40) m/uL Hgb (11.4-16.0) gm/dL Hct (34.0-46.0) % MCV (80.0-100.0) fL Sodium 125 L (137-145) mmol/L Creatinine 0.40 L (0.52-1.04) mg/dL Glucose 155 H (74-99) mg/dL Osmolality 269 L (280-301) mosm/kg Calcium 8.2 L (8.4-10.2) mg/dL Iron (50-170) ug/dL TIBC (228-460) ug/dL % Saturation (12.00-45.00) Crossmatch See Detail
[2021-02-08] MEDS: SODIUM FERRIC GLUCONAT-SUCROSE 125 MG in SODIUM CHLORIDE 0.9% 100 ML IVPB SCH (15:02)
[2021-02-08 19:10] LABS: African American GFR (CKD) >90 (>60 ml/min/1.73 sqM); Anion Gap 3 mmol/L; Blood Urea Nitrogen 8 mg/dL (7-17); Calcium 7.8 mg/dL (8.4-10.2); Carbon Dioxide 22 mmol/L (22-30); Chloride 101 mmol/L (98-107); Glucose 175 mg/dL (74-99); Non-African American GFR(CKD) >90 (>60 ml/min/1.73 sqM); Potassium 4.2 mmol/L (3.5-5.1); Sodium 126 mmol/L (137-145)
[2021-02-08] MEDS: SENNOSIDES-DOCUSATE SODIUM 1 EACH TAB PO SCH (21:06)
[2021-02-08] MEDS: MELATONIN 5 MG TABLET PO SCH (21:07)
[2021-02-08] MEDS: MAGNESIUM OXIDE 400 MG TAB PO SCH (21:07)
[2021-02-08] MEDS: ACETAMINOPHEN TAB 500 MG TAB PO SCH (21:07)
[2021-02-08] MEDS: OXYBUTYNIN CHLORIDE 5 MG TAB PO SCH (21:07)
[2021-02-08] MEDS: LORATADINE 10 MG TAB PO SCH (21:07)
[2021-02-08 22:08] LABS: HGB 8.2 gm/dL (11.4-16.0); MCH 33.3 pg (25.0-35.0); MCHC 34.1 g/dL (31.0-37.0); MCV 97.6 fL (80.0-100.0); Mean Platelet Volume 7.4; Platelet Count 230 k/uL (150-450); RBC 2.46 m/uL (3.80-5.40); RDW 13.3 % (11.5-15.5); WBC 6.2 k/uL (3.8-10.6)
[2021-02-08 22:28] LABS: African American GFR (CKD) >90 (>60 ml/min/1.73 sqM); Anion Gap 1 mmol/L; Blood Urea Nitrogen 7 mg/dL (7-17); Calcium 7.5 mg/dL (8.4-10.2); Carbon Dioxide 24 mmol/L (22-30); Chloride 101 mmol/L (98-107); Glucose 150 mg/dL (74-99); Non-African American GFR(CKD) >90 (>60 ml/min/1.73 sqM); Potassium 4.1 mmol/L (3.5-5.1); Sodium 126 mmol/L (137-145)
[2021-02-09] MEDS: SODIUM CHLORIDE 0.9% 1,000 ML IV SCH ×3 (00:33→21:55)
[2021-02-09 05:58] LABS: Basophils % (A) 0 %; Eosinophils % (A) 0 %; HCT 21.5 % (34.0-46.0); HGB 7.1 gm/dL (11.4-16.0); Lymphocytes # (A) 1.5 k/uL (1.0-4.8); Lymphocytes % (A) 24 %; MCH 32.3 pg (25.0-35.0); MCHC 33.2 g/dL (31.0-37.0); MCV 97.4 fL (80.0-100.0); Mean Platelet Volume 7.6; Monocytes # (A) 0.5 k/uL (0-1.0); Monocytes % (A) 8 %; Neutrophils # (A) 4.2 k/uL (1.3-7.7); Neutrophils % (A) 65 %; Platelet Count 247 k/uL (150-450); RBC 2.21 m/uL (3.80-5.40); RDW 13.5 % (11.5-15.5); WBC 6.4 k/uL (3.8-10.6)
[2021-02-09 06:09] LABS: African American GFR (CKD) >90 (>60 ml/min/1.73 sqM); Anion Gap 1 mmol/L; Blood Urea Nitrogen 6 mg/dL (7-17); Calcium 7.3 mg/dL (8.4-10.2); Carbon Dioxide 22 mmol/L (22-30); Chloride 104 mmol/L (98-107); Glucose 108 mg/dL (74-99); Non-African American GFR(CKD) >90 (>60 ml/min/1.73 sqM); Sodium 127 mmol/L (137-145)
--- NOTE | 2021-02-09 09:02 | P.PN ---
Subjective Progress Note Date: 02/09/21 This is a 75-year-old female who is status post ORIF of left periprosthetic fracture and revision left total hip arthroplasty. This is postoperative day #2 and patient is seen and evaluated at bedside today. Per physical therapy, the patient has needed a 2 person assist for transfers. Patient states that he she is having trouble having a bowel movement today. Otherwise patient denies any new complaints. Patient denies any fever/chills, numbness, weakness, tingling, abdominal pain, shortness of breath or chest pain. Objective - Vital Signs Vital signs: Vital Signs Temp 98.5 F 02/09/21 07:00 Pulse 102 H 02/09/21 07:00 Resp 16 02/09/21 07:00 BP 104/61 02/09/21 07:00 Pulse Ox 96 02/09/21 07:00 Intake & Output 02/08/21 02/09/21 02/09/21 18:59 06:59 18:59 Intake Total 1250 Output Total 600 3000 Balance 650 -3000 Intake: Intake, IV Titration 620 Amount Sodium Chloride 0.9% 1, 520 000 ml @ 130 mls/hr IV . Q7H42M [facility] Rx#:[id number] Sodium Ferric Gluconat- 100 Sucrose 125 mg In Sodium Chloride 0.9% 100 ml @ 100 mls/hr IVPB DAILY [facility] Rx#:[id number] Blood Product 630 Rc As-1 Unit 310 [id number] Output: Urine 600 3000 Other: Voiding Method Indwelling Catheter Indwelling Catheter Indwelling Catheter - Exam Vital signs are stable. Patient is in no acute distress and is alert and oriented 3. Calf is soft and nontender to palpation. Dressings are clean, dry, and intact. Compartments are soft. Sensation intact. Neurovascular status and circulatory status are intact. - Labs CBC & Chem 7: 02/09/21 05:07 02/09/21 05:07 Labs: Abnormal Lab Results - Last 24 Hours (Table) 02/08/21 02/08/21 02/08/21 Range/Units 06:24 06:24 09:09 RBC (3.80-5.40) m/uL Hgb (11.4-16.0) gm/dL Hct (34.0-46.0) % Sodium (137-145) mmol/L BUN (7-17) mg/dL Creatinine (0.52-1.04) mg/dL Glucose (74-99) mg/dL Osmolality 269 L (280-301) mosm/kg Calcium (8.4-10.2) mg/dL Iron 6 L (50-170) ug/dL TIBC 198 L (228-460) ug/dL % Saturation 3.03 L (12.00-45.00) Crossmatch See Detail 02/08/21 02/08/21 02/08/21 Range/Units 12:07 18:27 21:46 RBC 2.46 L (3.80-5.40) m/uL Hgb 8.2 L (11.4-16.0) gm/dL Hct 24.0 L (34.0-46.0) % Sodium 125 L 126 L (137-145) mmol/L BUN (7-17) mg/dL Creatinine 0.40 L 0.33 L (0.52-1.04) mg/dL Glucose 155 H 175 H (74-99) mg/dL Osmolality (280-301) mosm/kg Calcium 8.2 L 7.8 L (8.4-10.2) mg/dL Iron (50-170) ug/dL TIBC (228-460) ug/dL % Saturation (12.00-45.00) Crossmatch 02/08/21 02/09/21 02/09/21 Range/Units 21:46 05:07 05:07 RBC 2.21 L (3.80-5.40) m/uL Hgb 7.1 L (11.4-16.0) gm/dL Hct 21.5 L (34.0-46.0) % Sodium 126 L 127 L (137-145) mmol/L BUN 6 L (7-17) mg/dL Creatinine 0.33 L 0.34 L (0.52-1.04) mg/dL Glucose 150 H 108 H (74-99) mg/dL Osmolality (280-301) mosm/kg Calcium 7.5 L 7.3 L (8.4-10.2) mg/dL Iron (50-170) ug/dL TIBC (228-460) ug/dL % Saturation (12.00-45.00) Crossmatch Assessment and Plan (1) Osteoarthritis of left hip Current Visit: Yes Status: Acute Code(s): M16.12 - UNILATERAL PRIMARY OSTEOARTHRITIS, LEFT HIP SNOMED Code(s): 210431267684032 (2) Status post total hip replacement, left Current Visit: Yes Status: Acute Code(s): Z96.642 - PRESENCE OF LEFT ARTIFICIAL HIP JOINT SNOMED Code(s): 407659573969 (3) Periprosthetic fracture around internal prosthetic left hip joint, initial encounter Current Visit: Yes Status: Acute Code(s): M97.02XA - PERIPROSTH FRACTURE AROUND INTERNAL PROSTH L HIP JT, INIT SNOMED Code(s): 128412166 Plan: Continue routine postop care and pain control. Patient is to be 50% weightbearing to the left lower extremity. Appreciate input from medicine. Patient continues to be hyponatremic and this is being managed by internal medicine. Patient received 1 unit of blood on 02/08/2021. Hemoglobin is 7.1 this morning. Patient may benefit from discharge to ECF instead of home, once medically cleared.
[2021-02-09] MEDS: MULTIVITAMINS, THERA 1 EACH TAB PO SCH (09:09)
[2021-02-09] MEDS: SODIUM FERRIC GLUCONAT-SUCROSE 125 MG in SODIUM CHLORIDE 0.9% 100 ML IVPB SCH (09:09)
[2021-02-09] MEDS: HYDROcodone/APAP 7.5-325MG 1 EACH TAB PO PRN (09:09)
[2021-02-09] MEDS: RIVAROXABAN 10 MG TAB PO SCH (09:10)
[2021-02-09] MEDS: FLUTICASONE 50MCG/SPRAY NASAL 16GM EA NOSTRIL SCH ×2 (09:10→21:39)
[2021-02-09] MEDS: CHOLECALCIFEROL 25 MCG (1000 IU) TABLET PO SCH (09:10)
[2021-02-09] MEDS: VITAMIN E (DL,TOCOPHERYL ACET) 400 UNIT (180 MG) CAP PO SCH (09:10)
[2021-02-09] MEDS: ASCORBIC ACID 500 MG TAB PO SCH (09:10)
[2021-02-09] MEDS: CALCIUM CARBONATE 500 MG CHEWABLE PO SCH (09:10)
[2021-02-09] MEDS: LACTATED RINGERS 1,000 ML IV SCH (09:11)
[2021-02-09] MEDS ORDERED: FUROSEMIDE 10 MG/ML 2 ML VIAL IV ONE ×2 (10:45→21:56)
--- NOTE | 2021-02-09 13:18 | CONS ---
CONSULTATION REASON FOR CONSULT: Hyponatremia. HISTORY OF PRESENT ILLNESS: The patient is a 75-year-old female who was admitted to the hospital on 02/06/2021 for left total hip arthroplasty. The procedure was done on 02/06/2021. The patient had fallen and had a periprosthetic fracture of the left femur and had revision of the left total hip arthroplasty on 02/07/2021. She is currently maintained on a lot of IV fluids. Her serum sodium was noted to be 128 on initial admission. It dropped to around 125 and today it is at 127. Patient is maintained on normal saline, currently at 130 mL an hour. She is complaining of increased swelling. She is not short of breath. The patient does have pain. Urine osmolality was 606 yesterday. PAST MEDICAL HISTORY: Osteoarthritis, cataracts, hypertension, gastroesophageal reflux disease. PAST SURGICAL HISTORY: Cholecystectomy, tonsillectomy, tubal ligation, cataract surgery, bilateral knee arthroplasty, recent left hip total arthroplasty with revision of surgery, status post fall and further fracture of the femur. SOCIAL HISTORY: Negative for smoking, drug abuse or alcohol abuse. MEDICATIONS: Medications at home prior to admission included Antivert, cetirizine, multivitamins, melatonin, omega-3, magnesium, aspirin, vitamin C, Senokot, Xarelto. PHYSICAL EXAMINATION: Patient is currently comfortable, awake, alert, oriented x3, not in any acute distress, mildly short of breath. Blood pressure 104/61, heart rate 102 per minute. She is afebrile. Examination of the heart S1, S2. Examination of the lungs, bilateral breath sounds are heard. Decreased breath sounds at the bases. Abdomen is soft, obese, nontender. Examination of lower extremities shows edema 2+ bilaterally upper and lower extremities. PAINT PREPPER exam grossly intact. LAB: Show sodium 127, potassium 4.0, chloride 104 BUN 6, creatinine 0.3. ASSESSMENT: 1. Hypervolemic hyponatremia, possible component of SIADH as well. I will discontinue the IV fluids. We will give her 1 dose of Lasix. Repeat sodium in about 4 hours. 2. Status post left total hip arthroplasty with subsequent fall and revision of the hip arthroplasty done on 02/07/2021. 3. Volume overload. 4. Anemia started on IV iron. PLAN: DC saline, Lasix IV x1. Repeat sodium this evening. Increase protein intake and Ensure as patient is not able to eat much. Thank you for this consultation. We will continue to follow the patient with you during her hospitalization. RONDA / GABINO: [id number] /
--- NOTE | 2021-02-09 16:21 | P.PN ---
Subjective Progress Note Date: 02/09/21 (delayed charting seen at 0930) Principal diagnosis: hip pain Patient is a 75-year-old female with a history of ALLERGIC rhinitis, vertigo, and osteoarthritis who presetned for elective LAVONNE. She was doing well postoperatively however she did have a fall which resulted in a periprosthetic left hip fracture. She underwent repeat operative repair on 02/07 without any im mediate postoperative complications. on 02/08 her Hgb was 6.9 and her sodium was 128. She was ordered 1 unit of pRBC. Patient seen and examined at bedside.Developed significant edema overnight, no shortness of breath, no nausea, no vomiting, no diarrhea. General: non toxic, no distress, appears at stated age Derm: warm, dry Head: atraumatic, normocephalic, symmetric Eyes: EOMI, no lid lag, anicteric sclera Mouth: no lip lesion, mucus membranes moist Cardiovascular: S1S2 reg, with faint murmur, positive posterior tibial pulse bilateral, Lungs: Decreased breath sounds bilateral, no rhonchi, no rales , no accessory muscle use Abdominal: soft, nontender to palpation, no guarding, no appreciable organomegaly Ext: no gross muscle atrophy, diffuse anasarca, no contractures Neuro: CN II-XI grossly intact, no focal neuro deficits Psych: Alert, oriented, appropriate affect 75-year-old female status post periprosthetic fracture of the left hip with operative repair. Being managed by orthopedic surgery. Acute blood loss anemia, with iron deficiency anemia - IV iron X 3, outpatient,outpatient GI evaluation from PCP (patien adi re - 1 unit pRBC today -Repeat CBC in a.m. Hyponatremia due to SIADH - serial sodium - off IVF, lasix given per nephrology - Nephrology recs Vertigo -As needed meclizine ALLERGIC rhinitis -Fluticasone nasal spray Thank you for allowing us to participate in the care of this pleasant patient. Do not hesitate to contact us with questions. Someone can be reached from the [facility] hospitalist group all hours of the day at [phone] or via perfect serve. Objective - Vital Signs Vital signs: Vital Signs Temp 98.1 F 02/09/21 13:48 Pulse 108 H 02/09/21 13:48 Resp 16 02/09/21 13:48 BP 109/51 02/09/21 13:48 Pulse Ox 97 02/09/21 13:48 Intake & Output 02/08/21 02/09/21 02/09/21 18:59 06:59 18:59 Intake Total 1250 Output Total 600 3000 Balance 650 -3000 Intake: Intake, IV Titration 620 Amount Sodium Chloride 0.9% 1, 520 000 ml @ 130 mls/hr IV . Q7H42M [facility] Rx#:[id number] Sodium Ferric Gluconat- 100 Sucrose 125 mg In Sodium Chloride 0.9% 100 ml @ 100 mls/hr IVPB DAILY [facility] Rx#:[id number] Blood Product 630 Rc As-1 Unit 310 [id number] Output: Urine 600 3000 Other: Voiding Method Indwelling Catheter Indwelling Catheter Indwelling Catheter # Bowel Movements 1 - Labs CBC & Chem 7: 02/09/21 05:07 02/09/21 05:07 Labs: Abnormal Lab Results - Last 24 Hours (Table) 02/08/21 02/08/21 02/08/21 Range/Units 18:27 21:46 21:46 RBC 2.46 L (3.80-5.40) m/uL Hgb 8.2 L (11.4-16.0) gm/dL Hct 24.0 L (34.0-46.0) % Sodium 126 L 126 L (137-145) mmol/L BUN (7-17) mg/dL Creatinine 0.33 L 0.33 L (0.52-1.04) mg/dL Glucose 175 H 150 H (74-99) mg/dL Calcium 7.8 L 7.5 L (8.4-10.2) mg/dL 02/09/21 02/09/21 Range/Units 05:07 05:07 RBC 2.21 L (3.80-5.40) m/uL Hgb 7.1 L (11.4-16.0) gm/dL Hct 21.5 L (34.0-46.0) % Sodium 127 L (137-145) mmol/L BUN 6 L (7-17) mg/dL Creatinine 0.34 L (0.52-1.04) mg/dL Glucose 108 H (74-99) mg/dL Calcium 7.3 L (8.4-10.2) mg/dL
[2021-02-09 18:56] LABS: African American GFR (CKD) >90 (>60 ml/min/1.73 sqM); Anion Gap 3 mmol/L; Blood Urea Nitrogen 9 mg/dL (7-17); Calcium 7.8 mg/dL (8.4-10.2); Carbon Dioxide 25 mmol/L (22-30); Chloride 101 mmol/L (98-107); Glucose 219 mg/dL (74-99); Non-African American GFR(CKD) >90 (>60 ml/min/1.73 sqM); Potassium 3.9 mmol/L (3.5-5.1); Sodium 129 mmol/L (137-145)
[2021-02-09 21:11] LABS: Basophils % (A) 0 %; Eosinophils # (A) 0.1 k/uL (0-0.7); Eosinophils % (A) 1 %; HCT 21.9 % (34.0-46.0); HGB 7.4 gm/dL (11.4-16.0); Lymphocytes # (A) 1.9 k/uL (1.0-4.8); Lymphocytes % (A) 25 %; MCH 33.4 pg (25.0-35.0); MCV 98.1 fL (80.0-100.0); Mean Platelet Volume 7.3; Monocytes # (A) 0.6 k/uL (0-1.0); Monocytes % (A) 8 %; Neutrophils % (A) 64 %; Platelet Count 320 k/uL (150-450); RBC 2.23 m/uL (3.80-5.40); RDW 13.7 % (11.5-15.5); WBC 7.8 k/uL (3.8-10.6)
[2021-02-09] MEDS: ACETAMINOPHEN TAB 500 MG TAB PO SCH (21:33)
[2021-02-09 21:34] LABS: Basophils # (A) 0.02 X 10*3/uL (0.00-0.10); Basophils % (A) 0.3 %; Eosinophils # (A) 0 X 10*3/uL (0.04-0.35); Eosinophils % (A) 0 %; HCT 21.6 % (37.2-46.3); HGB 6.9 g/dL (12.0-15.0); Lymphocytes # (A) 1.11 X 10*3/uL (0.90-5.00); Lymphocytes % (A) 17.7 %; MCH 31.7 pg (27.0-32.0); MCHC 31.9 g/dL (32.0-37.0); MCV 99.1 fL (80.0-97.0); Mean Platelet Volume 9.5 fL (9.5-12.2); Monocytes # (A) 0.57 X 10*3/uL (0.20-1.00); Monocytes % (A) 9.1 %; Neutrophils # (A) 4.51 X 10*3/uL (1.80-7.70); Neutrophils % (A) 72.1 %; Platelet Count 230 X 10*3/uL (140-440); RBC 2.18 X 10*6/uL (4.10-5.20); RDW 13.9 % (11.5-14.5); WBC 6.26 X 10*3/uL (4.50-10.00)
[2021-02-09] MEDS: MELATONIN 5 MG TABLET PO SCH (21:35)
[2021-02-09] MEDS: OXYBUTYNIN CHLORIDE 5 MG TAB PO SCH (21:37)
[2021-02-09] MEDS: SENNOSIDES-DOCUSATE SODIUM 1 EACH TAB PO SCH (21:37)
[2021-02-09] MEDS: LORATADINE 10 MG TAB PO SCH (21:37)
[2021-02-09] MEDS: MAGNESIUM OXIDE 400 MG TAB PO SCH (21:37)
[2021-02-09] MEDS ORDERED: ALPRAZolam 0.25 MG TAB PO STA (21:42)
[2021-02-10] MEDS: SODIUM CHLORIDE 0.9% 1,000 ML IV SCH ×2 (02:37→02:38)
[2021-02-10] MEDS: LACTATED RINGERS 1,000 ML IV SCH (08:14)
[2021-02-10] MEDS: CALCIUM CARBONATE 500 MG CHEWABLE PO SCH (08:28)
[2021-02-10] MEDS: VITAMIN E (DL,TOCOPHERYL ACET) 400 UNIT (180 MG) CAP PO SCH (08:28)
[2021-02-10] MEDS: ASCORBIC ACID 500 MG TAB PO SCH (08:28)
[2021-02-10] MEDS: FLUTICASONE 50MCG/SPRAY NASAL 16GM EA NOSTRIL SCH ×2 (08:29→20:16)
[2021-02-10] MEDS: MULTIVITAMINS, THERA 1 EACH TAB PO SCH (08:29)
[2021-02-10] MEDS: CHOLECALCIFEROL 25 MCG (1000 IU) TABLET PO SCH (08:29)
[2021-02-10] MEDS: RIVAROXABAN 10 MG TAB PO SCH (08:29)
[2021-02-10] MEDS: SODIUM FERRIC GLUCONAT-SUCROSE 125 MG in SODIUM CHLORIDE 0.9% 100 ML IVPB SCH (08:36)
--- NOTE | 2021-02-10 08:54 | P.PN ---
Subjective Progress Note Date: 02/10/21 This is a 75-year-old female who is status post ORIF of left periprosthetic fracture and revision left total hip arthroplasty. This is postoperative day #3 and patient is seen and evaluated at bedside today. Patient denies any new complaints today. Patient states that she was able to have a bowel movement yesterday. Patient denies any fever/chills, numbness, weakness, tingling, abdominal pain, shortness of breath or chest pain. Objective - Vital Signs Vital signs: Vital Signs Temp 98.1 F 02/10/21 08:23 Pulse 113 H 02/10/21 08:23 Resp 18 02/10/21 08:23 BP 108/54 02/10/21 08:23 Pulse Ox 97 02/10/21 08:23 Intake & Output 02/09/21 02/10/21 02/10/21 18:59 06:59 18:59 Intake Total 237 Output Total 1100 1600 Balance -863 -1600 Intake: Oral 237 Output: Urine 1100 1600 Other: Voiding Method Indwelling Catheter Indwelling Catheter # Voids 0 # Bowel Movements 1 0 - Exam Vital signs are stable. Patient is in no acute distress and is alert and oriented 3. Calf is soft and nontender to palpation. Dressings are clean, dry, and intact. Compartments are soft. Patient has full range of motion of the left foot and ankle. Sensation intact. Neurovascular status and circulatory status are intact. - Labs CBC & Chem 7: 02/09/21 20:48 02/09/21 14:35 Labs: Abnormal Lab Results - Last 24 Hours (Table) 02/08/21 02/09/21 02/09/21 Range/Units 09:09 14:35 14:35 RBC 2.18 L (4.10-5.20) X 10*6/uL Hgb 6.9 L* (12.0-15.0) g/dL Hct 21.6 L (37.2-46.3) % MCV 99.1 H (80.0-97.0) fL MCHC 31.9 L (32.0-37.0) g/dL Immature Gran # 0.05 H (0.00-0.04) X 10*3/uL Eosinophils # 0 L (0.04-0.35) X 10*3/uL Sodium 129 L (137-145) mmol/L Creatinine 0.44 L (0.52-1.04) mg/dL Glucose 219 H (74-99) mg/dL Calcium 7.8 L (8.4-10.2) mg/dL Crossmatch See Detail 02/09/21 Range/Units 20:48 RBC 2.23 L (4.10-5.20) X 10*6/uL Hgb 7.4 L (12.0-15.0) g/dL Hct 21.9 L (37.2-46.3) % MCV (80.0-97.0) fL MCHC (32.0-37.0) g/dL Immature Gran # (0.00-0.04) X 10*3/uL Eosinophils # (0.04-0.35) X 10*3/uL Sodium (137-145) mmol/L Creatinine (0.52-1.04) mg/dL Glucose (74-99) mg/dL Calcium (8.4-10.2) mg/dL Crossmatch Assessment and Plan (1) Osteoarthritis of left hip Current Visit: Yes Status: Acute Code(s): M16.12 - UNILATERAL PRIMARY OSTEOARTHRITIS, LEFT HIP SNOMED Code(s): 922989813974705 (2) Status post total hip replacement, left Current Visit: Yes Status: Acute Code(s): Z96.642 - PRESENCE OF LEFT ARTIFICIAL HIP JOINT SNOMED Code(s): 047635963092 (3) Periprosthetic fracture around internal prosthetic left hip joint, initial encounter Current Visit: Yes Status: Acute Code(s): M97.02XA - PERIPROSTH FRACTURE AROUND INTERNAL PROSTH L HIP JT, INIT SNOMED Code(s): 130208037 Plan: Continue routine postop care and pain control. Patient is to be 50% weightbearing to the left lower extremity. Appreciate input from medicine. Patient continues to be hyponatremic and this is being managed by internal medicine and nephrology. Hemoglobin is 7.4 this morning. Patient received a unit of blood yesterday. Discharge to ECF when medically able.
[2021-02-10 09:19] LABS: African American GFR (CKD) >90 (>60 ml/min/1.73 sqM); Anion Gap 1 mmol/L; Blood Urea Nitrogen 7 mg/dL (7-17); Calcium 7.5 mg/dL (8.4-10.2); Carbon Dioxide 25 mmol/L (22-30); Chloride 103 mmol/L (98-107); Glucose 108 mg/dL (74-99); Non-African American GFR(CKD) >90 (>60 ml/min/1.73 sqM); Potassium 3.7 mmol/L (3.5-5.1); Sodium 129 mmol/L (137-145)
[2021-02-10] MEDS ORDERED: FUROSEMIDE 10 MG/ML 2 ML VIAL IV ONE (10:18)
--- NOTE | 2021-02-10 10:46 | P.PN ---
Subjective Progress Note Date: 02/10/21 Principal diagnosis: hip pain e Patient is a 75-year-old female with a history of ALLERGIC rhinitis, vertigo, and osteoarthritis who presetned for elective LAVONNE. She was doing well postoperatively however she did have a fall which resulted in a periprosthetic left hip fracture. She underwent repeat operative repair on 02/07 without any immediate postoperative complications. on 02/08 her Hgb was 6.9 and her sodium was 128. She was ordered 1 unit of pRBC. Her hemoglobin stabilized. She did develop some hyponatremia. 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 Fluids were stopped and she was started on IV diuresis. Patient seen and examined at bedside. She reports feeling very tired. She denies any chest pain or nausea. She denies any shortness of breath, still with significant swelling. General: non toxic, no distress, appears at stated age Derm: warm, dry Head: atraumatic, normocephalic, symmetric Eyes: EOMI, no lid lag, anicteric sclera Mouth: no lip lesion, mucus membranes moist Cardiovascular: S1S2 reg, with faint murmur, positive posterior tibial pulse bilateral, Lungs: Decreased breath sounds bilateral, no rhonchi, no rales , no accessory muscle use Abdominal: soft, nontender to palpation, no guarding, no appreciable organomegaly Ext: no gross muscle atrophy, diffuse anasarca, no contractures Neuro: CN II-XI grossly intact, no focal neuro deficits Psych: Alert, oriented, appropriate affect 75-year-old female status post periprosthetic fracture of the left hip with operative repair. Being managed by orthopedic surgery. Acute blood loss anemia, with iron deficiency anemia - IV iron X 3 completed , outpatient,outpatient GI evaluation from PCP (jason adi re - s/p 1 unit pRBC -Repeat CBC in a.m. Hyponatremia due to SIADH - Repat sodium in AM - stop IV fluids (were still running at 50 for some reson) - Lasix X 1 today - got 1L bolus last evening for high heart rates. - Nephrology recs Vertigo -As needed meclizine ALLERGIC rhinitis -Fluticasone nasal spray Thank you for allowing us to participate in the care of this pleasant patient. Do not hesitate to contact us with questions. Someone can be reached from the [facility] hospitalist group all hours of the day at [phone] or via perfect serve. Objective - Vital Signs Vital signs: Vital Signs Temp 98.1 F 02/10/21 08:23 Pulse 113 H 02/10/21 08:23 Resp 18 02/10/21 08:23 BP 108/54 02/10/21 08:23 Pulse Ox 97 02/10/21 08:23 Intake & Output 02/09/21 02/10/21 02/10/21 18:59 06:59 18:59 Intake Total 237 Output Total 1100 1600 Balance -863 -1600 Intake: Oral 237 Output: Urine 1100 1600 Other: Voiding Method Indwelling Catheter Indwelling Catheter Indwelling Catheter # Voids 0 # Bowel Movements 1 0 - Labs CBC & Chem 7: 02/09/21 20:48 02/10/21 07:21 Labs: Abnormal Lab Results - Last 24 Hours (Table) 02/08/21 02/09/21 02/09/21 Range/Units 09:09 14:35 14:35 RBC 2.18 L (4.10-5.20) X 10*6/uL Hgb 6.9 L* (12.0-15.0) g/dL Hct 21.6 L (37.2-46.3) % MCV 99.1 H (80.0-97.0) fL MCHC 31.9 L (32.0-37.0) g/dL Immature Gran # 0.05 H (0.00-0.04) X 10*3/uL Eosinophils # 0 L (0.04-0.35) X 10*3/uL Sodium 129 L (137-145) mmol/L Creatinine 0.44 L (0.52-1.04) mg/dL Glucose 219 H (74-99) mg/dL Calcium 7.8 L (8.4-10.2) mg/dL Crossmatch See Detail 02/09/21 02/10/21 Range/Units 20:48 07:21 RBC 2.23 L (4.10-5.20) X 10*6/uL Hgb 7.4 L (12.0-15.0) g/dL Hct 21.9 L (37.2-46.3) % MCV (80.0-97.0) fL MCHC (32.0-37.0) g/dL Immature Gran # (0.00-0.04) X 10*3/uL Eosinophils # (0.04-0.35) X 10*3/uL Sodium 129 L (137-145) mmol/L Creatinine 0.38 L (0.52-1.04) mg/dL Glucose 108 H (74-99) mg/dL Calcium 7.5 L (8.4-10.2) mg/dL Crossmatch
[2021-02-10] MEDS: FUROSEMIDE 10 MG/ML 2 ML VIAL IV SCH ×2 (11:25→20:16)
[2021-02-10] MEDS: MIDODRINE 5 MG TAB PO SCH ×2 (11:28→18:01)
[2021-02-10 12:04] LABS: Basophils # (A) 0.03 X 10*3/uL (0.00-0.10); Basophils % (A) 0.5 %; Eosinophils # (A) 0.06 X 10*3/uL (0.04-0.35); Eosinophils % (A) 0.9 %; Lymphocytes # (A) 1.46 X 10*3/uL (0.90-5.00); Lymphocytes % (A) 23.1 %; Monocytes # (A) 0.71 X 10*3/uL (0.20-1.00); Monocytes % (A) 11.2 %; Neutrophils # (A) 4.03 X 10*3/uL (1.80-7.70); Neutrophils % (A) 63.7 %
[2021-02-10 12:06] LABS: HCT 19.5 % (37.2-46.3); HGB 6.2 g/dL (12.0-15.0); MCH 30.7 pg (27.0-32.0); MCHC 31.8 g/dL (32.0-37.0); MCV 96.5 fL (80.0-97.0); Mean Platelet Volume 9.3 fL (9.5-12.2); Platelet Count 266 X 10*3/uL (140-440); RBC 2.02 X 10*6/uL (4.10-5.20); RDW 13.7 % (11.5-14.5); WBC 6.33 X 10*3/uL (4.50-10.00)
--- NOTE | 2021-02-10 14:24 | PN ---
PROGRESS NOTE Patient is seen for followup for hyponatremia which is hypervolemic. The patient received a dose of Lasix yesterday. Her IV fluids were discontinued. Sodium level improved to 129. I will maintain her on scheduled dose of IV Lasix. PHYSICAL EXAMINATION: On examination today, blood pressure is 108/54, heart rate 113 per minute. Patient is afebrile. Examination of the heart S1, S2. Examination of the lungs, bilateral breath sounds are heard. Abdomen is soft, nontender. Examination of lower extremities shows edema 2+ bilaterally upper and lower extremities. RADIOLOGY PHYSICIAN exam grossly intact. LAB: Show sodium 129, potassium 3.7, serum creatinine 0.38. ASSESSMENT: 1. Hypervolemic hyponatremia with fluid overload, currently improved. Continue off of IV fluids and I will maintain the patient on scheduled dose of IV Lasix. If her blood pressure is low we can add midodrine. She is also severely anemic which will add to the hypotension. 2. Anemia with iron saturation as low as 3%, maintained on IV iron. 3. Status post left hip arthroplasty with resultant fall and fracture of the femur same day and status post revision of the arthroplasty on 02/07/2021. PLAN: Add midodrine and maintain scheduled dose of IV Lasix. Continue off IV fluids. Repeat labs in a.m. and encourage increased oral intake. MMLILAL / IJN: [id number] /
[2021-02-10 17:42] LABS: African American GFR (CKD) >90 (>60 ml/min/1.73 sqM); Anion Gap 2 mmol/L; Blood Urea Nitrogen 12 mg/dL (7-17); Calcium 7.9 mg/dL (8.4-10.2); Carbon Dioxide 28 mmol/L (22-30); Chloride 98 mmol/L (98-107); Glucose 124 mg/dL (74-99); Non-African American GFR(CKD) >90 (>60 ml/min/1.73 sqM); Potassium 4.1 mmol/L (3.5-5.1); Sodium 128 mmol/L (137-145)
[2021-02-10] MEDS: OXYBUTYNIN CHLORIDE 5 MG TAB PO SCH (20:16)
[2021-02-10] MEDS: MELATONIN 5 MG TABLET PO SCH (20:16)
[2021-02-10] MEDS: MAGNESIUM OXIDE 400 MG TAB PO SCH (20:17)
[2021-02-10] MEDS: ACETAMINOPHEN TAB 500 MG TAB PO SCH (20:17)
[2021-02-10] MEDS: LORATADINE 10 MG TAB PO SCH (20:17)
[2021-02-10] MEDS: SENNOSIDES-DOCUSATE SODIUM 1 EACH TAB PO SCH (20:17)
[2021-02-11 06:28] LABS: African American GFR (CKD) >90 (>60 ml/min/1.73 sqM); Anion Gap 3 mmol/L; Blood Urea Nitrogen 10 mg/dL (7-17); Calcium 7.8 mg/dL (8.4-10.2); Carbon Dioxide 27 mmol/L (22-30); Chloride 97 mmol/L (98-107); Glucose 110 mg/dL (74-99); Non-African American GFR(CKD) >90 (>60 ml/min/1.73 sqM); Sodium 127 mmol/L (137-145)
[2021-02-11] MEDS: LACTATED RINGERS 1,000 ML IV SCH (07:21)
[2021-02-11] MEDS: VITAMIN E (DL,TOCOPHERYL ACET) 400 UNIT (180 MG) CAP PO SCH (08:01)
[2021-02-11] MEDS: MIDODRINE 5 MG TAB PO SCH ×2 (08:01→18:39)
[2021-02-11] MEDS: CHOLECALCIFEROL 25 MCG (1000 IU) TABLET PO SCH (08:01)
[2021-02-11] MEDS: MULTIVITAMINS, THERA 1 EACH TAB PO SCH (08:01)
[2021-02-11] MEDS: CALCIUM CARBONATE 500 MG CHEWABLE PO SCH (08:01)
[2021-02-11] MEDS: FUROSEMIDE 10 MG/ML 2 ML VIAL IV SCH ×2 (08:02→20:30)
[2021-02-11] MEDS: ASCORBIC ACID 500 MG TAB PO SCH (08:02)
[2021-02-11] MEDS: FLUTICASONE 50MCG/SPRAY NASAL 16GM EA NOSTRIL SCH ×2 (08:02→20:32)
[2021-02-11] MEDS: RIVAROXABAN 10 MG TAB PO SCH (08:16)
--- NOTE | 2021-02-11 08:50 | P.PN ---
Subjective Progress Note Date: 02/11/21 Principal diagnosis: this is a 75-year-old female followed up for hyponatremia. admission sodium was 128. She is admitted for elective hip surgery. After the surgery she fell and had fracture of her femur on the same side. Her hyponatremia Is deemed to be hypervolemic because she has edema. Her urine osmolality [id number] and urine sodium was 20. She was started on IV Lasix, sodium has fluctuated between 127 went up to 129 and back to 127 this morning. She had 5200 mL of urine with Lasix. She is eating about 25% of her trays. Complains of fatigue and shortness of breath. No nausea vomiting diarrhea no abdominal pain. Her past history is not very significant Objective - Vital Signs Vital signs: Vital Signs Temp 98.1 F 02/11/21 00:52 Pulse 95 02/11/21 00:52 Resp 17 02/11/21 00:52 BP 106/63 02/11/21 00:52 Pulse Ox 96 02/11/21 00:52 Intake & Output 02/10/21 02/11/21 02/11/21 18:59 06:59 18:59 Intake Total 790 800 Output Total 2400 2800 Balance -1610 -2000 Intake: Oral 480 800 Blood Product 310 Rc As-1 Unit 310 [id number] Output: Urine 2400 2800 Other: Voiding Method Indwelling Catheter Indwelling Catheter # Bowel Movements 1 exam she is awake alert oriented seems somewhat depressed. HEENT exam no JVP neck is supple no facial asymmetry Lungs are clear to auscultation fairly good air entry bilaterally Heart sounds are unremarkable For some irregularbeats. Last EKG on 02/07 w asnormal sinus rhythm Abdomen soft nontender Extremity exam was mild edema Neurologically awake alert oriented, she is sitting on the edge of the bed - Labs CBC & Chem 7: 02/10/21 07:21 02/11/21 05:29 Labs: Abnormal Lab Results - Last 24 Hours (Table) 02/08/21 02/10/21 02/10/21 Range/Units 09:09 07: 07:21 RBC 2.02 L (4.10-5.20) X 10*6/uL Hgb 6.2 L* (12.0-15.0) g/dL Hct 19.5 L* (37.2-46.3) % MCHC 31.8 L (32.0-37.0) g/dL MPV 9.3 L (9.5-12.2) fL Sodium 129 L (137-145) mmol/L Chloride (98-107) mmol/L Creatinine 0.38 L (0.52-1.04) mg/dL Glucose 108 H (74-99) mg/dL Calcium 7.5 L (8.4-10.2) mg/dL Crossmatch See Detail 02/10/21 02/11/21 Range/Units 16:50 05:29 RBC (4.10-5.20) X 10*6/uL Hgb (12.0-15.0) g/dL Hct (37.2-46.3) % MCHC (32.0-37.0) g/dL MPV (9.5-12.2) fL Sodium 128 L 127 L (137-145) mmol/L Chloride 97 L (98-107) mmol/L Creatinine 0.39 L 0.39 L (0.52-1.04) mg/dL Glucose 124 H 110 H (74-99) mg/dL Calcium 7.9 L 7.8 L (8.4-10.2) mg/dL Crossmatch Assessment and Plan Assessment: impression 1. Hyponatremia with edema, on Lasix sodium. Her sodium is unchanged in spite of good diuresis. TSH is normal at 0.53.possible CHF should be considered although clinically currently she as no signs of pulmonary edema but does have edema 2. Status post hip replacement because of hip fracture left femur and open reduction internal fixation on 02/06/2021. 3. Iron deficiency anemia, hemoglobin 6.2 this morning 4. Status post IV iron replacement. 5. Edema, secondary to hypoalbuminemia. Recommendation 1. Continue IV Lasix. 2. Check serum albumin, 3. Check urine osmolality and sodium again 4. Monitor labs daily
[2021-02-11] MEDS: SODIUM FERRIC GLUCONAT-SUCROSE 125 MG in SODIUM CHLORIDE 0.9% 100 ML IVPB SCH (09:20)
--- NOTE | 2021-02-11 09:23 | XR ---
EXAMINATION TYPE: XR chest 1V DATE OF EXAM: 02/11/2021 HISTORY: Shortness of breath. COMPARISON: 06/07/2014 TECHNIQUE: Single view of the chest is submitted. FINDINGS: Demonstrated are scattered senescent parenchymal change. There is no evidence for focal infiltrate. The heart is stable. Hilar and mediastinal structures are within normal limits. Degenerative changes are seen of the dorsal spine. IMPRESSION: 1. Chronic changes without evidence for acute pulmonary disease.
--- NOTE | 2021-02-11 09:44 | P.PN ---
Subjective Progress Note Date: 02/11/21 This patient is a 75-year-old female who is status-post left total hip arthroplasty on 02/06/31. Patient was getting dressed to discharge home, and she fell. An x-ray of the left hip taken after patient fell revealed a periprosthetic fracture of the left femur. Patient was then taken to the operating room yesterday on 02/07/21 for open reduction internal fixation left femur periprosthetic fracture, and revision left total hip arthroplasty. Today is postoperative day #4. The patient is seen and examined bedside this morning. Hemoglobin was instructed to yesterday, she received initial unit of PRBCs. She has been transfused a total of 2 units. Repeat hemoglobin has been drawn this morning, we are currently awaiting results. Patient states she feels better compared to yesterday, she states she feels stronger. She notes mild dizziness when she stands up. She is currently to the bedside chair, she states she was created one-person assist with transfer. She is tolerating food ok. She denies chest pain, shortness breath, nausea, vomiting, fevers, chills. There are no new complaints today. Vital signs stable. Objective - Vital Signs Vital signs: Vital Signs Temp 98.0 F 02/11/21 07:00 Pulse 88 02/11/21 07:00 Resp 19 02/11/21 07:00 BP 119/76 02/11/21 07:00 Pulse Ox 99 02/11/21 07:00 Intake & Output 02/10/21 02/11/21 02/11/21 18:59 06:59 18:59 Intake Total 790 800 Output Total 2400 2800 Balance -1610 -2000 Intake: Oral 480 800 Blood Product 310 Rc As-1 Unit 310 [id number] Output: Urine 2400 2800 Other: Voiding Method Indwelling Catheter Indwelling Catheter # Voids 2 # Bowel Movements 1 1 - Exam On examination, the patient sitting up in a bedside chair in no apparent di stress. She is alert and oriented 3. On inspection of the left hip, there are two clean, dry, intact Optifoam dressings in place. No bleeding or drainage through the dressing. Mild-moderate swelling of the thigh. Thigh is soft and compressible. Left lower extremity is warm and well perfused with brisk capillary refill distally. Motor and sensory function is intact of the left lower extremity. The calves are soft and nontender to palpation bilaterally. - Labs CBC & Chem 7: 02/10/21 07:21 02/11/21 05:29 Labs: Abnormal Lab Results - Last 24 Hours (Table) 02/08/21 02/10/21 02/10/21 Range/Units 09:09 07:21 16:50 RBC 2.02 L (4.10-5.20) X 10*6/uL Hgb 6.2 L* (12.0-15.0) g/dL Hct 19.5 L* (37.2-46.3) % MCHC 31.8 L (32.0-37.0) g/dL MPV 9.3 L (9.5-12.2) fL Absolute Nucleated RBC (0.00-0.00) X 10*3/uL NRBC/100 WBC Diff (0.0-0.0) /100 WBCS Sodium 128 L (137-145) mmol/L Chloride (98-107) mmol/L Creatinine 0.39 L (0.52-1.04) mg/dL Glucose 124 H (74-99) mg/dL Calcium 7.9 L (8.4-10.2) mg/dL Crossmatch See Detail 02/11/21 02/11/21 Range/Units 05:29 05:29 RBC (4.10-5.20) X 10*6/uL Hgb (12.0-15.0) g/dL Hct (37.2-46.3) % MCHC (32.0-37.0) g/dL MPV (9.5-12.2) fL Absolute Nucleated RBC 0.03 H (0.00-0.00) X 10*3/uL NRBC/100 WBC Diff 0.4 H (0.0-0.0) /100 WBCS Sodium 127 L (137-145) mmol/L Chloride 97 L (98-107) mmol/L Creatinine 0.39 L (0.52-1.04) mg/dL Glucose 110 H (74-99) mg/dL Calcium 7.8 L (8.4-10.2) mg/dL Crossmatch Assessment and Plan Assessment: Status-post left total hip arthroplasty on 02/06/21 with post-operative fall, resulting in periprosthetic fracture of the left femur. Status-post open reduction internal fixation left femur periprosthetic fracture, and revision left total hip arthroplasty on 02/07/21. Post-operative day #4. Plan: - 50% weightbearing on the operative extremity. Up with assistance, up with a walker. - Physical therapy for gait and balance training. - Awaiting results of repeat hemoglobin this morning. Patient received one unit of PRBCs yesterday. Appreciate recommendations from internal medicine. - Pain management as needed. - Xarelto for DVT prophylaxis. - Hyponatremia management per nephrology and internal medicine. - Anticipate discharge to rehab when medically cleared.
[2021-02-11 12:12] LABS: Basophils # (A) 0.03 X 10*3/uL (0.00-0.10); Basophils % (A) 0.4 %; Eosinophils # (A) 0.08 X 10*3/uL (0.04-0.35); HCT 24.4 % (37.2-46.3); HGB 7.9 g/dL (12.0-15.0); Lymphocytes # (A) 2.07 X 10*3/uL (0.90-5.00); Lymphocytes % (A) 26.6 %; MCH 29.8 pg (27.0-32.0); MCHC 32.4 g/dL (32.0-37.0); MCV 92.1 fL (80.0-97.0); Mean Platelet Volume 8.9 fL (9.5-12.2); Monocytes # (A) 0.91 X 10*3/uL (0.20-1.00); Monocytes % (A) 11.7 %; Neutrophils # (A) 4.58 X 10*3/uL (1.80-7.70); Neutrophils % (A) 58.9 %; Platelet Count 302 X 10*3/uL (140-440); RBC 2.65 X 10*6/uL (4.10-5.20); RDW 16.7 % (11.5-14.5); WBC 7.78 X 10*3/uL (4.50-10.00)
[2021-02-11 12:58] LABS: Anisocytosis Slight; Basophils % (A) 0 %; Eosinophils % (A) 1 %; HCT 27.4 % (34.0-46.0); Lymphocytes # (A) 1.4 k/uL (1.0-4.8); Lymphocytes % (A) 20 %; MCH 31.4 pg (25.0-35.0); MCHC 33.4 g/dL (31.0-37.0); Mean Platelet Volume 6.7; Monocytes # (A) 0.4 k/uL (0-1.0); Monocytes % (A) 6 %; Neutrophils # (A) 5.2 k/uL (1.3-7.7); Neutrophils % (A) 72 %; Platelet Count 399 k/uL (150-450); RBC 2.91 m/uL (3.80-5.40); RDW 16.6 % (11.5-15.5); WBC 7.3 k/uL (3.8-10.6)
[2021-02-11 13:02] LABS: HGB 9.2 gm/dL (11.4-16.0)
[2021-02-11] MEDS: HYDROcodone/APAP 7.5-325MG 1 EACH TAB PO PRN (15:46)
--- NOTE | 2021-02-11 16:50 | P.PN ---
Subjective Progress Note Date: 02/11/21 (delayed charting seen at 1228) Principal diagnosis: hip pain e Patient is a 75-year-old female with a history of ALLERGIC rhinitis, vertigo, and osteoarthritis who presetned for elective LAVONNE. She was doing well postoperatively however she did have a fall which resulted in a periprosthetic left hip fracture. She underwent repeat operative repair on 02/07 without any i mmediate postoperative complications. on 02/08 her Hgb was 6.9 and her sodium was 128. She was ordered 1 unit of pRBC. Her hemoglobin stabilized. She did develop some hyponatremia. 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 Fluids were stopped and she was started on IV diuresis. Patient seen and examined at bedside. She reports that she is diuresing well. She denies any chest pain or shortness of breath at rest. She does get shortness of breath when up and moving. Swelling is better. He denies any nausea or vomiting.. General: non toxic, no distress, appears at stated age Derm: warm, dry Head: atraumatic, normocephalic, symmetric Eyes: EOMI, no lid lag, anicteric sclera Mouth: no lip lesion, mucus membranes moist Cardiovascular: S1S2 reg, with faint murmur, positive posterior tibial pulse bilateral, Lungs: Clear to auscultation bilateral, no rhonchi, no rales , no accessory muscle use Abdominal: soft, nontender to palpation, no guarding, no appreciable organomegaly Ext: no gross muscle atrophy, diffuse anasarca, no contractures Neuro: CN II-XI grossly intact, no focal neuro deficits Psych: Alert, oriented, appropriate affect 75-year-old female status post periprosthetic fracture of the left hip with operative repair. Being managed by orthopedic surgery. Acute blood loss anemia, with iron deficiency anemia - IV iron X 3 completed , outpatient,outpatient GI evaluation from PCP (patien adi re - s/p 1 unit pRBC -Repeat CBC in a.m. Hyponatremia due to SIADH - Repat sodium in AM - Lasix - Nephrology recs : Await repeat urine osmole and urine sodium levels, patient without overt signs of congestive heart failure, chest x-ray with no pulmonary edema. Vertigo -As needed meclizine ALLERGIC rhinitis -Fluticasone nasal spray Thank you for allowing us to participate in the care of this pleasant patient. Do not hesitate to contact us with questions. Someone can be reached from the [facility] hospitalist group all hours of the day at [phone] or via perfect serve. Objective - Vital Signs Vital signs: Vital Signs Temp 98.9 F 02/11/21 14:00 Pulse 99 02/11/21 14:00 Resp 17 02/11/21 14:00 BP 109/46 02/11/21 14:00 Pulse Ox 94 L 02/11/21 14:00 Intake & Output 02/10/21 02/11/21 02/11/21 18:59 06:59 18:59 Intake Total 790 800 Output Total 2400 2800 Balance -1609 Intake: Oral 480 800 Blood Product 310 Rc As-1 Unit 310 [id number] Output: Urine 2400 2800 Other: Voiding Method Indwelling Catheter Indwelling Catheter Indwelling Catheter # Voids 2 # Bowel Movements 1 1 - Labs CBC & Chem 7: 02/11/21 12:10 02/11/21 05:29 Labs: Abnormal Lab Results - Last 24 Hours (Table) 02/10/21 02/11/21 02/11/21 Range/Units 16:50 05:29 05:29 RBC 2.65 L (4.10-5.20) X 10*6/uL Hgb 7.9 L (12.0-15.0) g/dL Hct 24.4 L (37.2-46.3) % RDW 16.7 H (11.5-14.5) % MPV 8.9 L (9.5-12.2) fL Absolute Nucleated RBC 0.03 H (0.00-0.00) X 10*3/uL Immature Gran # 0.11 H (0.00-0.04) X 10*3/uL NRBC/100 WBC Diff 0.4 H (0.0-0.0) /100 WBCS Sodium 128 L 127 L (137-145) mmol/L Chloride 97 L (98-107) mmol/L Creatinine 0.39 L 0.39 L (0.52-1.04) mg/dL Glucose 124 H 110 H (74-99) mg/dL Calcium 7.9 L 7.8 L (8.4-10.2) mg/dL 02/11/21 Range/Units 12:10 RBC 2.91 L (4.10-5.20) X 10*6/uL Hgb 9.2 L D (12.0-15.0) g/dL Hct 27.4 L (37.2-46.3) % RDW 16.6 H (11.5-14.5) % MPV (9.5-12.2) fL Absolute Nucleated RBC (0.00-0.00) X 10*3/uL Immature Gran # (0.00-0.04) X 10*3/uL NRBC/100 WBC Diff (0.0-0.0) /100 WBCS Sodium (137-145) mmol/L Chloride (98-107) mmol/L Creatinine (0.52-1.04) mg/dL Glucose (74-99) mg/dL Calcium (8.4-10.2) mg/dL
[2021-02-11] MEDS: ACETAMINOPHEN TAB 500 MG TAB PO SCH (20:29)
[2021-02-11] MEDS: LORATADINE 10 MG TAB PO SCH (20:29)
[2021-02-11] MEDS: MELATONIN 5 MG TABLET PO SCH (20:29)
[2021-02-11] MEDS: MAGNESIUM OXIDE 400 MG TAB PO SCH (20:29)
[2021-02-11] MEDS: SENNOSIDES-DOCUSATE SODIUM 1 EACH TAB PO SCH (20:31)
[2021-02-11] MEDS: OXYBUTYNIN CHLORIDE 5 MG TAB PO SCH (20:36)
[2021-02-12] MEDS: HYDROcodone/APAP 7.5-325MG 1 EACH TAB PO PRN (05:34)
[2021-02-12] MEDS: CALCIUM CARBONATE 500 MG CHEWABLE PO SCH (08:12)
[2021-02-12] MEDS: FUROSEMIDE 10 MG/ML 2 ML VIAL IV SCH ×2 (08:12→20:10)
[2021-02-12] MEDS: ASCORBIC ACID 500 MG TAB PO SCH (08:12)
[2021-02-12] MEDS: RIVAROXABAN 10 MG TAB PO SCH (08:13)
[2021-02-12] MEDS: MIDODRINE 5 MG TAB PO SCH ×2 (08:13→16:15)
[2021-02-12] MEDS: VITAMIN E (DL,TOCOPHERYL ACET) 400 UNIT (180 MG) CAP PO SCH (08:13)
[2021-02-12] MEDS: MULTIVITAMINS, THERA 1 EACH TAB PO SCH (08:13)
[2021-02-12] MEDS: CHOLECALCIFEROL 25 MCG (1000 IU) TABLET PO SCH (08:13)
[2021-02-12] MEDS: FLUTICASONE 50MCG/SPRAY NASAL 16GM EA NOSTRIL SCH ×2 (08:13→20:10)
--- NOTE | 2021-02-12 09:13 | P.PN ---
Subjective Progress Note Date: 03/08/21 Principal diagnosis: this is a 75-year-old female followed up for hyponatremia. admission sodium was 128. She is admitted for elective hip surgery. After the surgery she fell and had fracture of her femur on the same side. Her hyponatremia Is deemed to be hypervolemic because she has edema. Her urine osmolality [id number] and urine sodium was 20. She was started on IV Lasix, sodium has fluctuated between 127 went up to 129 and back to 127 this morning. She had 5200 mL of urine with Lasix today and 4000 cc today. She is still complains of profound fatigue although improved. Her hemoglobin was 6.2 is up to 9.2. She had some good sleep last night. She is eating danny r. Blood pressure remains somewhat low in the 90s systolic to 109 systolic heart rate in the 90s to 100 and afebrile Objective - Vital Signs Vital signs: Vital Signs Temp 98 F 02/12/21 07:52 Pulse 91 02/12/21 07:52 Resp 18 02/12/21 07:52 BP 106/66 02/12/21 07:52 Pulse Ox 96 02/12/21 07:52 Intake & Output 02/11/21 02/12/21 02/12/21 18:59 06:59 18:59 Intake Total 620 800 Output Total 1600 2400 Balance -980 -1600 Intake: Intake, IV Titration 100 Amount Sodium Ferric Gluconat- 100 Sucrose 125 mg In Sodium Chloride 0.9% 100 ml @ 100 mls/hr IVPB DAILY [facility] Rx#:[id number] Oral 520 800 Output: Urine 1600 2400 Other: Voiding Method Indwelling Catheter Indwelling Catheter # Voids 2 # Bowel Movements 2 2 exam she is awake alert oriented seems somewhat depressed. HEENT exam no JVP neck is supple no facial asymmetry Lungs are clear to auscultation fairly good air entry bilaterally Heart sounds are unremarkable For some irregularbeats. Last EKG on 02/07 wasnormal sinus rhythm Abdomen soft nontender Extremity Mild edema Neurologically awake alert oriented, - Labs CBC & Chem 7: 02/11/21 12:10 02/11/21 05:29 Labs: Abnormal Lab Results - Last 24 Hours (Table) 02/11/21 02/11/21 Range/Units 05:29 12:10 RBC 2.65 L 2.91 L (4.10-5.20) X 10*6/uL Hgb 7.9 L 9.2 L D (12.0-15.0) g/dL Hct 24.4 L 27.4 L (37.2-46.3) % RDW 16.7 H 16.6 H (11.5-14.5) % MPV 8.9 L (9.5-12.2) fL Immature Gran # 0.11 H (0.00-0.04) X 10*3/uL Assessment and Plan Assessment: impression 1. Hyponatremia with edema, on Lasix. Her sodium is unchanged in spite of good diuresis. TSH is normal at 0.53.possible CHF should be considered although clinically currently she as no signs of pulmonary edema but does have edema, this morning urine osmole is 229 so she is starting to dilute her urine 2. Status post hip replacement because of hip fracture left femur and open reduction internal fixation on 02/06/2021. 3. Iron deficiency anemia, hemoglobin 6.2 on 02/10/2021, improved to 9.2 as of yesterday transfused day before yesterday. Further Improved with diuresis and reduction in intravascular volume. Labs are pending this morning 4. Status post IV iron replacement. 5. Edema, secondary to hypoalbuminemia. Approved Recommendation 1. Continue IV Lasix. 2. Check serum albumin, 4. Monitor labs daily
--- NOTE | 2021-02-12 09:52 | P.PN ---
Subjective Progress Note Date: 02/12/21 This patient is a 75-year-old female who is status-post left total hip arthroplasty on 02/06/31. Patient was getting dressed to discharge home, and she fell. An x-ray of the left hip taken after patient fell revealed a periprosthetic fracture of the left femur. Patient was then taken to the operating room yesterday on 02/07/21 for open reduction internal fixation left femur periprosthetic fracture, and revision left total hip arthroplasty. Today is postoperative day #5. The patient is seen and examined bedside this morning. Patient states she is feeling stronger today. She states the pain in her left hip is currently well-controlled. She states she feels her transfers with therapy have improved as well. Per nursing, the patient is eating more diet. Patient had a bowel movement yesterday. Patient's hemoglobin was up to 9.2 yesterday. She denies chest pain, shortness breath, nausea, vomiting. She denies numbness in the left lower extremity. Overall she is happy with her progress today. Vital signs stable. Objective - Vital Signs Vital signs: Vital Signs Temp 98 F 02/12/21 07:52 Pulse 91 02/12/21 07:52 Resp 18 02/12/21 07:52 BP 106/66 02/12/21 07:52 Pulse Ox 96 02/12/21 07:52 Intake & Output 02/11/21 02/12/21 02/12/21 18:59 06:59 18:59 Intake Total 620 800 Output Total 1600 2400 Balance -980 -1600 Intake: Intake, IV Titration 100 Amount Sodium Ferric Gluconat- 100 Sucrose 125 mg In Sodium Chloride 0.9% 100 ml @ 100 mls/hr IVPB DAILY [facility] Rx#:[id number] Oral 520 800 Output: Urine 1600 2400 Other: Voiding Method Indwelling Catheter Indwelling Catheter Indwelling Catheter # Voids 2 # Bowel Movements 2 2 - Exam On examination, the patient sitting up in a bed in no apparent distress. She is alert and oriented 3. On inspection of the left hip, there are two clean, dry, intact Optifoam dressings in place. No bleeding or drainage through the dressing. Mild-moderate swelling of the thigh. Thigh is soft and compressible. Left lower extremity is warm and well perfused with brisk capillary refill distally. Motor and sensory function is intact of the left lower extremity. The calves are soft and nontender to palpation bilaterally. - Labs CBC & Chem 7: 02/11/21 12:10 02/11/21 05:29 Labs: Abnormal Lab Results - Last 24 Hours (Table) 02/11/21 02/11/21 Range/Units 05:29 12:10 RBC 2.65 L 2.91 L (4.10-5.20) X 10*6/uL Hgb 7.9 L 9.2 L D (12.0-15.0) g/dL Hct 24.4 L 27.4 L (37.2-46.3) % RDW 16.7 H 16.6 H (11.5-14.5) % MPV 8.9 L (9.5-12.2) fL Immature Gran # 0.11 H (0.00-0.04) X 10*3/uL Assessment and Plan Assessment: Status-post left total hip arthroplasty on 02/06/21 with post-operative fall, resulting in periprosthetic fracture of the left femur. Status-post open reduction internal fixation left femur periprosthetic fracture, and revision left total hip arthroplasty on 02/07/21. Post-operative day #5. Plan: - 50% weightbearing on the operative extremity. Up with assistance, up with a walker. - Physical therapy for gait and balance training. - Hemoglobin up to 9.2 yesterday. - Pain management as needed. - Xarelto for DVT prophylaxis. - Appreciate input from internal medicine. - Hyponatremia management per nephrology and internal medicine. - Anticipate discharge to rehab when medically cleared.
[2021-02-12 11:17] LABS: Basophils # (A) 0.03 X 10*3/uL (0.00-0.10); Basophils % (A) 0.4 %; Eosinophils # (A) 0.17 X 10*3/uL (0.04-0.35); Eosinophils % (A) 2.1 %; HCT 26.4 % (37.2-46.3); HGB 8.5 g/dL (12.0-15.0); Lymphocytes # (A) 2.21 X 10*3/uL (0.90-5.00); Lymphocytes % (A) 27.9 %; MCH 30.5 pg (27.0-32.0); MCHC 32.2 g/dL (32.0-37.0); MCV 94.6 fL (80.0-97.0); Mean Platelet Volume 8.8 fL (9.5-12.2); Monocytes # (A) 0.81 X 10*3/uL (0.20-1.00); Monocytes % (A) 10.2 %; Neutrophils # (A) 4.53 X 10*3/uL (1.80-7.70); Neutrophils % (A) 57.1 %; Platelet Count 370 X 10*3/uL (140-440); RBC 2.79 X 10*6/uL (4.10-5.20); RDW 16.4 % (11.5-14.5); WBC 7.93 X 10*3/uL (4.50-10.00)
[2021-02-12 12:44] LABS: African American GFR (CKD) 116.4 (60.0-200.0); Albumin 2.6 g/dL (3.80-4.90); Albumin/Globulin Ratio 1.53 (1.60-3.17); Anion Gap 3.5 mmol/L (4.00-12.00); Carbon Dioxide 30.5 mmol/L (21.6-31.8); Globulin 1.7 g/dL (1.6-3.3); Non-African American GFR(CKD) 100.5 (60.0-200.0); Potassium 3.9 mmol/L (3.5-5.5); Total Bilirubin 0.6 mg/dL (0.3-1.2); Total Protein 4.3 g/dL (6.2-8.2)
--- NOTE | 2021-02-12 14:08 | P.PN ---
Subjective Progress Note Date: 02/12/21 Principal diagnosis: hip pain Patient is a 75-year-old female with a history of ALLERGIC rhinitis, vertigo, and osteoarthritis who presetned for elective LAVONNE. She was doing well postoperatively however she did have a fall which resulted in a periprosthetic left hip fracture. She underwent repeat operative repair on 02/07 without any immediate postoperative complications. on 02/08 her Hgb was 6.9 and her sodium was 128. She was ordered 1 unit of pRBC. Her hemoglobin stabilized. She did develop some hyponatremia. 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 Fluids were stopped and she was started on IV diuresis. Patient seen and examined at bedside. Feeling very tired today, is able to move her hands better, no nausea, no vomiting, pain well controlled, breathing is better General: non toxic, no distress, appears at stated age Derm: warm, dry Head: atraumatic, normocephalic, symmetric Eyes: EOMI, no lid lag, anicteric sclera Mouth: no lip lesion, mucus membranes moist Cardiovascular: S1S2 reg, with faint murmur, positive posterior tibial pulse bilateral, Lungs: Decreased bs bilateral, no rhonchi, no rales, no accessory muscle use Abdominal: soft, nontender to palpation, no guarding, no appreciable organomegaly Ext: no gross muscle atrophy, 2+ edema b/l legs, no contractures Neuro: CN II-XI grossly intact, no focal neuro deficits Psych: Alert, oriented, appropriate affect 75-year-old female status post periprosthetic fracture of the left hip with operative repair. Being managed by orthopedic surgery. Acute blood loss anemia, with iron deficiency anemia - IV iron X 3 completed , outpatient,outpatient GI evaluation from PCP (jason adi re - s/p 1 unit pRBC -Repeat CBC in a.m. - slightly lower with Xarelto, will continue to monitor closely Hyponatremia due to SIADH, improving - Staring to dilute her urine well, suspect post-op or pain mediated - Repeat sodium in AM - Lasix BID - Nephrology recs appreciated Vertigo -As needed meclizine ALLERGIC rhinitis -Fluticasone nasal spray anticipate will be able to transition to SNF on dy Thank you for allowing us to participate in the care of this pleasant patient. Do not hesitate to contact us with questions. Someone can be reached from the [facility] hospitalist group all hours of the day at [phone] or via perfect serve. Active Medications Acetaminophen (Acetaminophen Tab 500 Mg Tab) 1,000 mg PO HS [facility] Last Admin: 02/11/21 20:29 Dose: 1,000 mg Documented by: Hydrocodone Bitart/Acetaminophen (Hydrocodone/Apap 7.5-325mg 1 Each Tab) 1 each PO Q6H PRN PRN Reason: Pain Scale 1 to 5 Stop: 03/08/21 08:56 Last Admin: 02/12/21 05:34 Dose: 1 each Documented by: Hydrocodone Bitart/Acetaminophen (Hydrocodone/Apap 7.5-325mg 1 Each Tab) 2 each PO Q6H PRN PRN Reason: Pain Scale 6 to 10 Stop: 03/08/21 08:56 Ascorbic Acid (Ascorbic Acid 500 Mg Tab) 1,000 mg PO DAILY [facility] Last Admin: 02/12/21 08:12 Dose: 1,000 mg Documented by: Calcium Carbonate/Glycine (Calcium Carbonate 500 Mg Chewable) 1,500 mg PO DAILY [facility] Last Admin: 02/12/21 08:12 Dose: 1,500 mg Documented by: Cholecalciferol (Cholecalciferol 25 Mcg (1000 Iu) Tablet) 25 mcg PO DAILY [facility] Last Admin: 02/12/21 08:13 Dose: 25 mcg Documented by: Fluticasone Propionate (Fluticasone 50mcg/[place] Nasal 16gm) 1 spray EA NOSTRIL BID [facility] Last Admin: 02/12/21 08:13 Dose: 1 spray Documented by: Furosemide (Furosemide 10 Mg/Ml 2 Ml Vial) 20 mg IV Q12HR [facility] Last Admin: 02/12/21 08:12 Dose: 20 mg Documented by: Hydromorphone HCl (Hydromorphone 0.2 Mg/1 Ml Syringe) 0.2 mg IVP Q3HR PRN PRN Reason: Pain Scale 4 to 6 Stop: 03/08/21 08:54 Hydromorphone HCl (Hydromorphone 0.5 Mg/0.5 Ml Syringe) 0.125 mg IVP Q3HR PRN PRN Reason: Pain Scale 1 to 3 Stop: 03/08/21 08:54 Hydromorphone HCl (Hydromorphone 0.5 Mg/0.5 Ml Syringe) 0.5 mg IVP Q3HR PRN PRN Reason: Pain Scale 7 to 10 Stop: 03/08/21 08:54 Loratadine (Loratadine 10 Mg Tab) 10 mg PO [facility] Last Admin: 02/11/21 20:29 Dose: 10 mg Documented by: Magnesium Hydroxide (Magnesium Hydroxide 2,400 Mg/10 Ml Cup) 2,400 mg PO DAILY PRN PRN Reason: Constipation Magnesium Oxide (Magnesium Oxide 400 Mg Tab) 400 mg PO [facility] Last Admin: 02/11/21 20:29 Dose: 400 mg Documented by: Meclizine HCl (Meclizine 12.5 Mg Tab) 12.5 mg PO Q6H PRN PRN Reason: dizziness Melatonin (Melatonin 5 Mg Tablet) 5 mg PO [facility] Last Admin: 02/11/21 20:29 Dose: 5 mg Documented by: Midodrine (Midodrine 5 Mg Tab) 5 mg PO AC-BID [facility] Last Admin: 02/12/21 08:13 Dose: 5 mg Documented by: Multivitamins (Multivitamins, Thera 1 Each Tab) 1 each PO DAILY [facility] Last Admin: 02/12/21 08:13 Dose: 1 each Documented by: Naloxone HCl (Naloxone 0.4 Mg/Ml 1 Ml Vial) 0.2 mg IV Q2M PRN PRN Reason: Opioid Reversal Ondansetron HCl (Ondansetron 4 Mg/2 Ml Vial) 4 mg IVP Q8H PRN PRN Reason: Nausea And Vomiting Oxybutynin Chloride (Oxybutynin Chloride 5 Mg Tab) 5 mg PO [facility] Last Admin: 02/11/21 20:36 Dose: 5 mg Documented by: Rivaroxaban (Rivaroxaban 10 Mg Tab) 10 mg PO DAILY [facility]; Protocol Stop: 03/15/21 09:01 Last Admin: 02/12/21 08:13 Dose: 10 mg Documented by: Senna/Docusate Sodium (Sennosides-Docusate Sodium 1 Each Tab) 2 each PO [facility] Last Admin: 02/11/21 20:31 Dose: Not Given Documented by: Vitamin E (Vitamin E (Dl,Tocopheryl Acet) 400 Unit (180 Mg) Cap) 400 unit PO DAILY [facility] Last Admin: 02/12/21 08:13 Dose: 400 unit Documented by: Objective - Vital Signs Vital signs: Vital Signs Temp 98 F 02/12/21 07:52 Pulse 91 02/12/21 07:52 Resp 18 02/12/21 07:52 BP 106/66 02/12/21 07:52 Pulse Ox 96 02/12/21 07:52 Intake & Output 02/11/21 02/12/21 02/12/21 18:59 06:59 18:59 Intake Total 620 800 Output Total 1600 2400 Balance -980 -1600 Intake: Intake, IV Titration 100 Amount Sodium Ferric Gluconat- 100 Sucrose 125 mg In Sodium Chloride 0.9% 100 ml @ 100 mls/hr IVPB DAILY [facility] Rx#:[id number] Oral 520 800 Output: Urine 1600 2400 Other: Voiding Method Indwelling Catheter Indwelling Catheter Indwelling Catheter # Voids 2 # Bowel Movements 2 2 - Labs CBC & Chem 7: 02/12/21 07:26 02/12/21 07:26 Labs: Abnormal Lab Results - Last 24 Hours (Table) 02/12/21 02/12/21 Range/Units 07:26 07:26 RBC 2.79 L (4.10-5.20) X 10*6/uL Hgb 8.5 L (12.0-15.0) g/dL Hct 26.4 L (37.2-46.3) % RDW 16.4 H (11.5-14.5) % MPV 8.8 L (9.5-12.2) fL Absolute Nucleated RBC 0.03 H (0.00-0.00) X 10*3/uL Immature Gran # 0.18 H (0.00-0.04) X 10*3/uL NRBC/100 WBC Diff 0.4 H (0.0-0.0) /100 WBCS Sodium 132 L (135-145) mmol/L Anion Gap 3.50 L (4.00-12.00) mmol/L Creatinine 0.4 L (0.6-1.5) mg/dL BUN/Creatinine Ratio 30.00 H (12.00-20.00) Ratio Glucose 120 H (70-110) mg/dL Calcium 8.0 L (8.7-10.3) mg/dL AST 55 H (13-35) U/L Alkaline Phosphatase 152 H (41-126) U/L Total Protein 4.3 L (6.2-8.2) g/dL Albumin 2.60 L (3.80-4.90) g/dL Albumin/Globulin Ratio 1.53 L (1.60-3.17) g/dL
[2021-02-12] MEDS: MELATONIN 5 MG TABLET PO SCH (20:09)
[2021-02-12] MEDS: OXYBUTYNIN CHLORIDE 5 MG TAB PO SCH (20:09)
[2021-02-12] MEDS: MAGNESIUM OXIDE 400 MG TAB PO SCH (20:09)
[2021-02-12] MEDS: LORATADINE 10 MG TAB PO SCH (20:09)
[2021-02-12] MEDS: SENNOSIDES-DOCUSATE SODIUM 1 EACH TAB PO SCH (20:09)
[2021-02-12] MEDS: ACETAMINOPHEN TAB 500 MG TAB PO SCH (20:10)
[2021-02-13 06:47] LABS: Anisocytosis Slight; HCT 27.8 % (34.0-46.0); HGB 9.2 gm/dL (11.4-16.0); MCH 31.6 pg (25.0-35.0); MCHC 33.1 g/dL (31.0-37.0); MCV 95.4 fL (80.0-100.0); Mean Platelet Volume 6.7; Platelet Count 545 k/uL (150-450); RBC 2.91 m/uL (3.80-5.40); RDW 16.9 % (11.5-15.5); WBC 8.9 k/uL (3.8-10.6)
[2021-02-13] MEDS: MIDODRINE 5 MG TAB PO SCH ×2 (07:12→17:08)
[2021-02-13] MEDS: RIVAROXABAN 10 MG TAB PO SCH (07:13)
[2021-02-13] MEDS: ASCORBIC ACID 500 MG TAB PO SCH (07:13)
[2021-02-13] MEDS: VITAMIN E (DL,TOCOPHERYL ACET) 400 UNIT (180 MG) CAP PO SCH (07:13)
[2021-02-13] MEDS: CHOLECALCIFEROL 25 MCG (1000 IU) TABLET PO SCH (07:13)
[2021-02-13] MEDS: MULTIVITAMINS, THERA 1 EACH TAB PO SCH (07:14)
[2021-02-13] MEDS: CALCIUM CARBONATE 500 MG CHEWABLE PO SCH (07:14)
[2021-02-13] MEDS: FLUTICASONE 50MCG/SPRAY NASAL 16GM EA NOSTRIL SCH ×2 (07:14→21:40)
[2021-02-13] MEDS: FUROSEMIDE 10 MG/ML 2 ML VIAL IV SCH ×2 (07:28→21:40)
[2021-02-13 09:10] LABS: Calcium 8.1 mg/dL (8.7-10.3); Non-African American GFR(CKD) 110.4 (60.0-200.0); Potassium 4.4 mmol/L (3.5-5.5)
--- NOTE | 2021-02-13 09:26 | P.PN ---
Subjective Progress Note Date: 02/13/21 This patient is a 75-year-old female who is status-post left total hip arthroplasty on 02/06/31. Patient was getting dressed to discharge home, and she fell. An x-ray of the left hip taken after patient fell revealed a periprosthetic fracture of the left femur. Patient was then taken to the operating room yesterday on 02/07/21 for open reduction internal fixation left femur periprosthetic fracture, and revision left total hip arthroplasty. Today is postoperative day #6. The patient is seen and examined bedside this morning. Patient states she feels better today, her pain is well-controlled in her hip. Patient believes the swelling in hip has improved. She states she had a bowel movement this morning. Patient states she ate breakfast without issue this morning. Patient has been using her incentive spirometer. Her yeh is still in place, per nursing it was left in place because patient isn't getting to the bedside commode easily, and she is on lasix. Patient denies chest pain, shortness of breath, nausea, vomiting, fevers, chills. Objective - Vital Signs Vital signs: Vital Signs Temp 98.1 F 02/13/21 08:00 Pulse 97 02/13/21 08:00 Resp 17 02/13/21 08:00 BP 120/59 02/13/21 08:00 Pulse Ox 97 02/13/21 08:00 Intake & Output 02/12/21 02/13/21 02/13/21 18:59 06:59 18:59 Intake Total 600 Output Total 2300 2000 1600 Balance -2300 -1400 -1600 Intake: Oral 600 Output: Urine 2300 2000 1600 Other: Voiding Method Indwelling Catheter Indwelling Catheter # Bowel Movements 2 1 - Exam On examination, the patient sitting up in a bed in no apparent distress. She is alert and oriented 3. On inspection of the left hip, there are two clean, dry, intact Optifoam dressings in place. No bleeding or drainage through the d ressing. Mild-moderate swelling of the thigh. Thigh is soft and compressible. Left lower extremity is warm and well perfused with brisk capillary refill distally. Motor and sensory function is intact of the left lower extremity. She has good strength and ROM of the ankle. The calves are soft and nontender to palpation bilaterally. - Labs CBC & Chem 7: 02/13/21 06:03 02/13/21 06:03 Labs: Abnormal Lab Results - Last 24 Hours (Table) 02/12/21 02/12/21 02/13/21 Range/Units 07:26 07:26 06:03 RBC 2.79 L 2.91 L (4.10-5.20) X 10*6/uL Hgb 8.5 L 9.2 L (12.0-15.0) g/dL Hct 26.4 L 27.8 L (37.2-46.3) % RDW 16.4 H 16.9 H (11.5-14.5) % Plt Count 545 H (150-450) k/uL MPV 8.8 L (9.5-12.2) fL Absolute Nucleated RBC 0.03 H (0.00-0.00) X 10*3/uL Immature Gran # 0.18 H (0.00-0.04) X 10*3/uL NRBC/100 WBC Diff 0.4 H (0.0-0.0) /100 WBCS Sodium 132 L (135-145) mmol/L Anion Gap 3.50 L (4.00-12.00) mmol/L Creatinine 0.4 L (0.6-1.5) mg/dL BUN/Creatinine Ratio 30.00 H (12.00-20.00) Ratio Glucose 120 H (70-110) mg/dL Calcium 8.0 L (8.7-10.3) mg/dL AST 55 H (13-35) U/L Alkaline Phosphatase 152 H (41-126) U/L Total Protein 4.3 L (6.2-8.2) g/dL Albumin 2.60 L (3.80-4.90) g/dL Albumin/Globulin Ratio 1.53 L (1.60-3.17) g/dL 02/13/21 Range/Units 06:03 RBC (4.10-5.20) X 10*6/uL Hgb (12.0-15.0) g/dL Hct (37.2-46.3) % RDW (11.5-14.5) % Plt Count (150-450) k/uL MPV (9.5-12.2) fL Absolute Nucleated RBC (0.00-0.00) X 10*3/uL Immature Gran # (0.00-0.04) X 10*3/uL NRBC/100 WBC Diff (0.0-0.0) /100 WBCS Sodium 132 L (135-145) mmol/L Anion Gap (4.00-12.00) mmol/L Creatinine 0.3 L (0.6-1.5) mg/dL BUN/Creatinine Ratio 50.00 H (12.00-20.00) Ratio Glucose (70-110) mg/dL Calcium 8.1 L (8.7-10.3) mg/dL AST (13-35) U/L Alkaline Phosphatase (41-126) U/L Total Protein (6.2-8.2) g/dL Albumin (3.80-4.90) g/dL Albumin/Globulin Ratio (1.60-3.17) g/dL Assessment and Plan Assessment: Status-post left total hip arthroplasty on 02/06/21 with post-operative fall, resulting in periprosthetic fracture of the left femur. Status-post open reduction internal fixation left femur periprosthetic fracture, and revision left total hip arthroplasty on 02/07/21. Post-operative day #6. Plan: - 50% weightbearing on the operative extremity. Up with assistance, up with a walker. - Physical therapy for gait and balance training. - Hemoglobin up to 9.2 today. Patient is s/p 2 units of PRBCs on 02/08, 02/10. - Pain management as needed. - Xarelto for DVT prophylaxis. - Appreciate input from internal medicine. - Hyponatremia management per nephrology and internal medicine. - Anticipate discharge to rehab tomorrow, if medically cleared.
--- NOTE | 2021-02-13 09:36 | P.PN ---
Subjective Progress Note Date: 02/13/21 Principal diagnosis: This is a 75-year-old female followed up for hyponatremia. admission sodium was 128. She is admitted for elective hip surgery. After the surgery she fell and had fracture of her femur on the same side.social had 2 surgeries Her hyponatremia Is deemed to be hypervolemic because she has edema. Her urine osmolality was 606 and urine sodium was 20. She was started on IV Lasix, sodium has Jennifer improved to 132 as of this morning. Repeat urine osmolality was 229 on 02/12/2021 yesterday. Therefore she is appropriately diluting her urine. Her urine output isdocumented at 5200 mL, 4000 mL and 4300 mL for the last 3 days, on Lasix 20 mg IV every 12, creatinine remains stable at 0.3, bicarb is slowly going up to 31. She is still complains of profound fatigue although slowly improved. Her hemoglobin was 6.2 is up to 9.2. She had some good sleep last nightalso had a good bowel movement that makes her feel better. She is eating better. vital si gns are unremarkable. Objective - Vital Signs Vital signs: Vital Signs Temp 98.1 F 02/13/21 08:00 Pulse 97 02/13/21 08:00 Resp 17 02/13/21 08:00 BP 120/59 02/13/21 08:00 Pulse Ox 97 02/13/21 08:00 Intake & Output 02/12/21 02/13/21 02/13/21 18:59 06:59 18:59 Intake Total 600 Output Total 2300 2000 1600 Balance -2300 -1400 -1600 Intake: Oral 600 Output: Urine 2300 2000 1600 Other: Voiding Method Indwelling Catheter Indwelling Catheter # Bowel Movements 2 1 exam she is awake alert oriented HEENT exam no JVP neck is supple no facial asymmetry Lungs are clear to auscultation fairly good air entry bilaterally Heart sounds are unremarkable. Last EKG on 02/07 was normal sinus rhythm Abdomen soft nontender Extremity Mild edema Neurologically awake alert oriented, - Labs CBC & Chem 7: 02/13/21 06:03 02/13/21 06:03 Labs: Abnormal Lab Results - Last 24 Hours (Table) 02/12/21 02/12/21 02/13/21 Range/Units 07:26 07:26 06:03 RBC 2.79 L 2.91 L (4.10-5.20) X 10*6/uL Hgb 8.5 L 9.2 L (12.0-15.0) g/dL Hct 26.4 L 27.8 L (37.2-46.3) % RDW 16.4 H 16.9 H (11.5-14.5) % Plt Count 545 H (150-450) k/uL MPV 8.8 L (9.5-12.2) fL Absolute Nucleated RBC 0.03 H (0.00-0.00) X 10*3/uL Immature Gran # 0.18 H (0.00-0.04) X 10*3/uL NRBC/100 WBC Diff 0.4 H (0.0-0.0) /100 WBCS Sodium 132 L (135-145) mmol/L Anion Gap 3.50 L (4.00-12.00) mmol/L Creatinine 0.4 L (0.6-1.5) mg/dL BUN/Creatinine Ratio 30.00 H (12.00-20.00) Ratio Glucose 120 H (70-110) mg/dL Calcium 8.0 L (8.7-10.3) mg/dL AST 55 H (13-35) U/L Alkaline Phosphatase 152 H (41-126) U/L Total Protein 4.3 L (6.2-8.2) g/dL Albumin 2.60 L (3.80-4.90) g/dL Albumin/Globulin Ratio 1.53 L (1.60-3.17) g/dL 02/13/21 Range/Units 06:03 RBC (4.10-5.20) X 10*6/uL Hgb (12.0-15.0) g/dL Hct (37.2-46.3) % RDW (11.5-14.5) % Plt Count (150-450) k/uL MPV (9.5-12.2) fL Absolute Nucleated RBC (0.00-0.00) X 10*3/uL Immature Gran # (0.00-0.04) X 10*3/uL NRBC/100 WBC Diff (0.0-0.0) /100 WBCS Sodium 132 L (135-145) mmol/L Anion Gap (4.00-12.00) mmol/L Creatinine 0.3 L (0.6-1.5) mg/dL BUN/Creatinine Ratio 50.00 H (12.00-20.00) Ratio Glucose (70-110) mg/dL Calcium 8.1 L (8.7-10.3) mg/dL AST (13-35) U/L Alkaline Phosphatase (41-126) U/L Total Protein (6.2-8.2) g/dL Albumin (3.80-4.90) g/dL Albumin/Globulin Ratio (1.60-3.17) g/dL Assessment and Plan Assessment: impression 1. Hyponatremia with edema, secondary to volume excess, responding to a IV Lasix 20 mg twice a day. Her sodium has slowly improved to 132. TSH is normal at 0.53. her urine osmolality repeat is 229 suggestive of dilution appropriately of her urine. 2. Status post hip replacement for degenerative joint disease and subsequent fall because of hip fracture left femur and open reduction internal fixation on 02/06/2021. 3. Iron deficiency anemia, hemoglobin 6.2 on 02/10/2021, improved to 9.2 . Further Improved with diuresis and reduction in intravascular volume. 4. Status post IV iron replacement. 5. Edema, secondary to hypoalbuminemia. improved Recommendation 1. Continue IV Lasix. 2. Monitor labs daily
--- NOTE | 2021-02-13 11:46 | P.PN ---
Subjective Progress Note Date: 02/13/21 Principal diagnosis: hip pain Patient is a 75-year-old female with a history of ALLERGIC rhinitis, vertigo, and osteoarthritis who presetned for elective LAVONNE. She was doing well postoperatively however she did have a fall which resulted in a periprosthetic left hip fracture. She underwent repeat operative repair on 02/07 without any immediate postoperative complications. on 02/08 her Hgb was 6.9 and her sodium was 128. She was ordered 1 unit of pRBC. Her hemoglobin stabilized. She did develop some hyponatremia. 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 Fluids were stopped and she was started on IV diuresis. Patient seen and examined at bedside. Doing better today, no nausea, no vomiting, no diarrhea, swelling is completely resolved. General: non toxic, no distress, appears at stated age Derm: warm, dry Head: atraumatic, normocephalic, symmetric Eyes: EOMI, no lid lag, anicteric sclera Mouth: no lip lesion, mucus membranes moist Cardiovascular: S1S2 reg, with faint murmur, positive posterior tibial pulse bilateral, Lungs: Decreased bs bilateral, no rhonchi, no rales, no accessory muscle use Abdominal: soft, nontender to palpation, no guarding, no appreciable or ganomegaly Ext: no gross muscle atrophy, no edema b/l legs, no contractures Neuro: CN II-XI grossly intact, no focal neuro deficits Psych: Alert, oriented, appropriate affect 75-year-old female status post periprosthetic fracture of the left hip with operative repair. Being managed by orthopedic surgery. Acute blood loss anemia, with iron deficiency anemia - IV iron X 3 completed , outpatient,outpatient GI evaluation from PCP - s/p 1 unit pRBC - stable Hyponatremia due to SIADH, improving - Staring to dilute her urine well, suspect post-op or pain mediated - Repeat sodium in AM - Lasix BID, then discontinued in Am - Nephrology recs appreciated Vertigo -As needed meclizine ALLERGIC rhinitis -Fluticasone nasal spray anticipate will be medically optimized for transition to SNF on Saturday Active Medications Acetaminophen (Acetaminophen Tab 500 Mg Tab) 1,000 mg PO HS [facility] Last Admin: 02/12/21 20:10 Dose: 1,000 mg Documented by: Hydrocodone Bitart/Acetaminophen (Hydrocodone/Apap 7.5-325mg 1 Each Tab) 1 each PO Q6H PRN PRN Reason: Pain Scale 1 to 5 Stop: 03/08/21 08:56 Last Admin: 02/12/21 05:34 Dose: 1 each Documented by: Hydrocodone Bitart/Acetaminophen (Hydrocodone/Apap 7.5-325mg 1 Each Tab) 2 each PO Q6H PRN PRN Reason: Pain Scale 6 to 10 Stop: 03/08/21 08:56 Ascorbic Acid (Ascorbic Acid 500 Mg Tab) 1,000 mg PO DAILY [facility] Last Admin: 02/13/21 07:13 Dose: 1,000 mg Documented by: Calcium Carbonate/Glycine (Calcium Carbonate 500 Mg Chewable) 1,500 mg PO DAILY [facility] Last Admin: 02/13/21 07:14 Dose: 1,500 mg Documented by: Cholecalciferol (Cholecalciferol 25 Mcg (1000 Iu) Tablet) 25 mcg PO DAILY [facility] Last Admin: 02/13/21 07:13 Dose: 25 mcg Documented by: Fluticasone Propionate (Fluticasone 50mcg/[place] Nasal 16gm) 1 spray EA NOSTRIL BID [facility] Last Admin: 02/13/21 07:14 Dose: 1 spray Documented by: Furosemide (Furosemide 10 Mg/Ml 2 Ml Vial) 20 mg IV Q12HR [facility] Last Admin: 02/13/21 07:28 Dose: 20 mg Documented by: Hydromorphone HCl (Hydromorphone 0.2 Mg/1 Ml Syringe) 0.2 mg IVP Q3HR PRN PRN Reason: Pain Scale 4 to 6 Stop: 03/08/21 08:54 Hydromorphone HCl (Hydromorphone 0.5 Mg/0.5 Ml Syringe) 0.125 mg IVP Q3HR PRN PRN Reason: Pain Scale 1 to 3 Stop: 03/08/21 08:54 Hydromorphone HCl (Hydromorphone 0.5 Mg/0.5 Ml Syringe) 0.5 mg IVP Q3HR PRN PRN Reason: Pain Scale 7 to 10 Stop: 03/08/21 08:54 Loratadine (Loratadine 10 Mg Tab) 10 mg PO HS [facility] Last Admin: 02/12/21 20:09 Dose: 10 mg Documented by: Magnesium Hydroxide (Magnesium Hydroxide 2,400 Mg/10 Ml Cup) 2,400 mg PO DAILY PRN PRN Reason: Constipation Last Admin: 02/12/21 20:09 Dose: 2,400 mg Documented by: Magnesium Oxide (Magnesium Oxide 400 Mg Tab) 400 mg PO [facility] Last Admin: 02/12/21 20:09 Dose: 400 mg Documented by: Meclizine HCl (Meclizine 12.5 Mg Tab) 12.5 mg PO Q6H PRN PRN Reason: dizziness Melatonin (Melatonin 5 Mg Tablet) 5 mg PO [facility] Last Admin: 02/12/21 20:09 Dose: 5 mg Documented by: Midodrine (Midodrine 5 Mg Tab) 5 mg PO AC-BID [facility] Last Admin: 02/13/21 07:12 Dose: 5 mg Documented by: Multivitamins (Multivitamins, Thera 1 Each Tab) 1 each PO DAILY [facility] Last Admin: 02/13/21 07:14 Dose: 1 each Documented by: Naloxone HCl (Naloxone 0.4 Mg/Ml 1 Ml Vial) 0.2 mg IV Q2M PRN PRN Reason: Opioid Reversal Ondansetron HCl (Ondansetron 4 Mg/2 Ml Vial) 4 mg IVP Q8H PRN PRN Reason: Nausea And Vomiting Oxybutynin Chloride (Oxybutynin Chloride 5 Mg Tab) 5 mg PO [facility] Last Admin: 02/12/21 20:09 Dose: 5 mg Documented by: Rivaroxaban (Rivaroxaban 10 Mg Tab) 10 mg PO DAILY [facility]; Protocol Stop: 03/15/21 09:01 Last Admin: 02/13/21 07:13 Dose: 10 mg Documented by: Senna/Docusate Sodium (Sennosides-Docusate Sodium 1 Each Tab) 2 each PO [facility] Last Admin: 02/12/21 20:09 Dose: 2 each Documented by: Vitamin E (Vitamin E (Dl,Tocopheryl Acet) 400 Unit (180 Mg) Cap) 400 unit PO DAILY [facility] Last Admin: 02/13/21 07:13 Dose: 400 unit Documented by: Objective - Vital Signs Vital signs: Vital Signs Temp 98.1 F 02/13/21 08:00 Pulse 97 02/13/21 08:00 Resp 17 02/13/21 08:00 BP 120/59 02/13/21 08:00 Pulse Ox 97 02/13/21 08:00 Intake & Output 02/12/21 02/13/21 02/13/21 18:59 06:59 18:59 Intake Total 600 Output Total 2301999 1600 Balance -2300 -1400 -1600 Intake: Oral 600 Output: Urine 2299 1999 1600 Other: Voiding Method Indwelling Catheter Indwelling Catheter # Bowel Movements 2 1 - Labs CBC & Chem 7: 02/13/21 06:03 02/13/21 06:03 Labs: Abnormal Lab Results - Last 24 Hours (Table) 02/12/21 02/13/21 02/13/21 Range/Units 07:26 06:03 06:03 RBC 2.91 L (3.80-5.40) m/uL Hgb 9.2 L (11.4-16.0) gm/dL Hct 27.8 L (34.0-46.0) % RDW 16.9 H (11.5-15.5) % Plt Count 545 H (150-450) k/uL Sodium 132 L 132 L (135-145) mmol/L Anion Gap 3.50 L (4.00-12.00) mmol/L Creatinine 0.4 L 0.3 L (0.6-1.5) mg/dL BUN/Creatinine Ratio 30.00 H 50.00 H (12.00-20.00) Ratio Glucose 120 H (70-110) mg/dL Calcium 8.0 L 8.1 L (8.7-10.3) mg/dL AST 55 H (13-35) U/L Alkaline Phosphatase 152 H (41-126) U/L Total Protein 4.3 L (6.2-8.2) g/dL Albumin 2.60 L (3.80-4.90) g/dL Albumin/Globulin Ratio 1.53 L (1.60-3.17) g/dL
[2021-02-13 11:48] VITALS: BMI 23.6
[2021-02-13] MEDS: HYDROcodone/APAP 7.5-325MG 1 EACH TAB PO PRN (17:18)
[2021-02-13] MEDS: SENNOSIDES-DOCUSATE SODIUM 1 EACH TAB PO SCH (21:39)
[2021-02-13] MEDS: MELATONIN 5 MG TABLET PO SCH (21:39)
[2021-02-13] MEDS: ACETAMINOPHEN TAB 500 MG TAB PO SCH (21:39)
[2021-02-13] MEDS: MAGNESIUM OXIDE 400 MG TAB PO SCH (21:40)
[2021-02-13] MEDS: LORATADINE 10 MG TAB PO SCH (21:40)
[2021-02-13] MEDS: OXYBUTYNIN CHLORIDE 5 MG TAB PO SCH (21:40)
[2021-02-13] MEDS: SIMETHICONE 40 MG/0.6 ML DROPS 2,000 MG/30 ML BOTTLE PO PRN (21:42)
[2021-02-14] MEDS ORDERED: MORPHINE SULFATE 2 MG/ML SYRINGE IVP STA (01:28)
--- NOTE | 2021-02-14 04:27 | XR ---
EXAMINATION TYPE: XR chest 1V portable DATE OF EXAM: 02/14/2021 COMPARISON: 02/11/2021 HISTORY: Abdominal pain TECHNIQUE: Single view FINDINGS: There is no heart failure nor confluent pneumonic infiltrate. Costophrenic angles are clear . There are no hilar masses. Bony thorax is intact IMPRESSION: No active cardiopulmonary disease. No change.
[2021-02-14 07:30] LABS: African American GFR (CKD) >90 (>60 ml/min/1.73 sqM); Anion Gap 4 mmol/L; Blood Urea Nitrogen 16 mg/dL (7-17); Calcium 8.1 mg/dL (8.4-10.2); Carbon Dioxide 29 mmol/L (22-30); Chloride 89 mmol/L (98-107); Glucose 129 mg/dL (74-99); Non-African American GFR(CKD) >90 (>60 ml/min/1.73 sqM); Potassium 4.5 mmol/L (3.5-5.1); Sodium 122 mmol/L (137-145)
[2021-02-14] MEDS: CALCIUM CARBONATE 500 MG CHEWABLE PO SCH (07:40)
[2021-02-14] MEDS: CHOLECALCIFEROL 25 MCG (1000 IU) TABLET PO SCH (07:41)
[2021-02-14] MEDS: MIDODRINE 5 MG TAB PO SCH ×2 (07:41→18:54)
[2021-02-14] MEDS: RIVAROXABAN 10 MG TAB PO SCH (07:41)
[2021-02-14] MEDS: ASCORBIC ACID 500 MG TAB PO SCH (07:41)
[2021-02-14] MEDS: MULTIVITAMINS, THERA 1 EACH TAB PO SCH (07:41)
[2021-02-14] MEDS: VITAMIN E (DL,TOCOPHERYL ACET) 400 UNIT (180 MG) CAP PO SCH (07:41)
[2021-02-14] MEDS: SIMETHICONE 40 MG/0.6 ML DROPS 2,000 MG/30 ML BOTTLE PO PRN ×2 (07:42→21:15)
[2021-02-14] MEDS: FUROSEMIDE 10 MG/ML 2 ML VIAL IV SCH (07:42)
[2021-02-14] MEDS: FLUTICASONE 50MCG/SPRAY NASAL 16GM EA NOSTRIL SCH ×2 (07:42→21:03)
[2021-02-14 07:46] LABS: Appearance,Urine Cloudy (Clear); Bacteria,Urine Rare /hpf; Bilirubin,Urine Negative (Negative); Blood,Urine Small (Negative); Color,Urine Yellow; Glucose,Urine (UA) Negative (Negative); Ketones,Urine Negative (Negative); Leukocyte Esterase,Urine Large (Negative); Nitrite,Urine Negative (Negative); Protein,Urine 1+ (Negative); RBC,Urine 44 /hpf (0-5); Specific Gravity,Urine 1.017 (1.001-1.035); Urobilinogen,Urine <2.0 mg/dL (<2.0); WBC,Urine 80 /hpf (0-5)
[2021-02-14] MEDS: LEVOFLOXACIN 250MG-D5W PMX 250 MG in DEXTROSE/WATER 1 50ML.BAG IVPB SCH (09:32)
--- NOTE | 2021-02-14 12:47 | P.PN ---
Subjective Progress Note Date: 02/14/21 This is a 75-year-old female who is status post ORIF of left periprosthetic fracture and revision left total hip arthroplasty. This is postoperative day #7 and patient is seen and evaluated at bedside today with Dr. Quinton Chang. Patient complains of left-sided flank pain this morning. Per nursing, the patient had to be straight cathed early this morning and the urine was dark and cloudy. Patient denies any fever/chills, numbness, weakness, tingling, shortness of breath or chest pain. Objective - Vital Signs Vital signs: Vital Signs Temp 98.4 F 02/14/21 08:00 Pulse 91 02/14/21 09:30 Resp 18 02/14/21 09:30 BP 126/73 02/14/21 09:30 Pulse Ox 95 02/14/21 09:30 Intake & Output 02/13/21 02/14/21 02/14/21 18:59 06:59 18:59 Output Total 2200 700 Balance -2200 -700 Weight 57.7 kg Output: Urine 2200 700 Straight 700 Uretheral (Garcia) 600 Other: Voiding Method External Catheter # Voids 1 0 # Bowel Movements 1 - Exam Vital signs are stable. Patient is in no acute distress and is alert and oriented 3. Calf is soft and nontender to palpation. Dressings are clean, dry , and intact. Compartments are soft. Patient has full range of motion of the left foot and ankle. Sensation intact. Neurovascular status and circulatory status are intact. - Labs CBC & Chem 7: 02/13/21 06:03 02/14/21 10:24 Labs: Abnormal Lab Results - Last 24 Hours (Table) 02/14/21 02/14/21 02/14/21 Range/Units 05:41 07:30 10:24 Sodium 122 L 121 L (137-145) mmol/L Chloride 89 L (98-107) mmol/L Creatinine 0.37 L (0.52-1.04) mg/dL Glucose 129 H (74-99) mg/dL Calcium 8.1 L (8.4-10.2) mg/dL Urine Appearance Cloudy H (Clear) Urine Protein 1+ H (Negative) Urine Blood Small H (Negative) Ur Leukocyte Esterase Large H (Negative) Urine RBC 44 H (0-5) /hpf Urine WBC 80 H (0-5) /hpf Urine Bacteria Rare H (None) /hpf Assessment and Plan (1) Osteoarthritis of left hip Current Visit: Yes Status: Acute Code(s): M16.12 - UNILATERAL PRIMARY OSTEOARTHRITIS, LEFT HIP SNOMED Code(s): 145570488515752 (2) Status post total hip replacement, left Current Visit: Yes Status: Acute Code(s): Z96.642 - PRESENCE OF LEFT ARTIFICIAL HIP JOINT SNOMED Code(s): 120018838527 (3) Periprosthetic fracture around internal prosthetic left hip joint, initial encounter Current Visit: Yes Status: Acute Code(s): M97.02XA - PERIPROSTH FRACTURE AROUND INTERNAL PROSTH L HIP JT, INIT SNOMED Code(s): 758048199 Plan: Continue routine postop care and pain control. Patient is to be 50% weightbearing to the left lower extremity. Patient is started on Levauin for UTI today. Appreciate input from medicine. Patient continues to be hyponatremic and this is being managed by internal medicine and nephrology. Discharge to ECF when medically able.
[2021-02-14 13:53] LABS: Glucose,Whole Blood 156 mg/dL (75-99)
--- NOTE | 2021-02-14 14:00 | P.PN ---
Subjective Patient is feeling weak today. Nursing staff informed me that she had 400 mL after straight catheterization of urine this morning. Patient did not void all night. Sodium level this morning was 122. Objective - Vital Signs Vital signs: Vital Signs Temp 98.4 F 02/14/21 08:00 Pulse 91 02/14/21 09:30 Resp 18 02/14/21 09:30 BP 126/73 02/14/21 09:30 Pulse Ox 95 02/14/21 09:30 Intake & Output 02/13/21 02/14/21 02/14/21 18:59 06:59 18:59 Output Total 2200 700 Balance -2200 -700 Weight 57.7 kg Output: Urine 2200 700 Straight 700 Uretheral (Garcia) 600 Other: Voiding Method External Catheter # Voids 1 0 # Bowel Movements 1 - Exam General: The patient is awake and alert, in no distress Eye: there is normal conjunctiva bilaterally. Neck: The neck is supple, there is no JVD. Cardiovascular: Normal S1-S2, no S3-S4, no murmurs. Respiratory: Lungs clear to auscultation bilaterally Gastrointestinal: Abdomen is soft, nontender Musculoskeletal: There is no pedal edema. Neurological:. Speech is normal. Skin: Skin is warm and dry - Labs CBC & Chem 7: 02/13/21 06:03 02/14/21 12:27 Labs: Abnormal Lab Results - Last 24 Hours (Table) 02/14/21 02/14/21 02/14/21 Range/Units 05:41 07:30 10:24 Sodium 122 L 121 L (137-145) mmol/L Chloride 89 L (98-107) mmol/L Creatinine 0.37 L (0.52-1.04) mg/dL Glucose 129 H (74-99) mg/dL POC Glucose (mg/dL) (75-99) mg/dL Calcium 8.1 L (8.4-10.2) mg/dL Urine Appearance Cloudy H (Clear) Urine Protein 1+ H (Negative) Urine Blood Small H (Negative) Ur Leukocyte Esterase Large H (Negative) Urine RBC 44 H (0-5) /hpf Urine WBC 80 H (0-5) /hpf Urine Bacteria Rare H (None) /hpf 02/14/21 02/14/21 Range/Units 12:27 13:50 Sodium 119 L* (137-145) mmol/L Chloride (98-107) mmol/L Creatinine (0.52-1.04) mg/dL Glucose (74-99) mg/dL POC Glucose (mg/dL) 156 H (75-99) mg/dL Calcium (8.4-10.2) mg/dL Urine Appearance (Clear) Urine Protein (Negative) Urine Blood (Negative) Ur Leukocyte Esterase (Negative) Urine RBC (0-5) /hpf Urine WBC (0-5) /hpf Urine Bacteria (None) /hpf Assessment and Plan Assessment: Patient is a 75-year-old female with a history of ALLERGIC rhinitis, vertigo, and osteoarthritis who presetned for elective LAVONNE. She was doing well postoperatively however she did have a fall which resulted in a periprosthetic left hip fracture. She underwent repeat operative repair on 02/07 without any immediate postoperative complications. on 02/08 her Hgb was 6.9 and her sodium was 128. She was ordered 1 unit of pRBC. Her hemoglobin stabilized. She did develop some hyponatremia. 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 Fluids were stopped and she was started on IV diuresis. Acute blood loss anemia, with iron deficiency anemia - IV iron X 3 completed , outpatient,outpatient GI evaluation from PCP - s/p 1 unit pRBC - stable Hyponatremia thought to be due to SIADH - Patient was started on Lasix. Sodium level worsened to 122. Nephrology following closely. Plan to start hypertonic saline today. Urinary retention -Continue bladder scan to check postvoid residual was ordered every 8 hours -Garcia catheter was discontinued yesterday that may require reinsertion Vertigo -As needed meclizine Periprosthetic fracture on internal prosthetic left hip joint, management per or thopedic Today, I reviewed her urinalysis. There is no evidence of UTI. Urine sample was bloody secondary to traumatic collection with straight catheterization. Patient does not need any antibiotic at this time.
[2021-02-14] MEDS: SODIUM CHLORIDE 3%(HYPERTONIC) 500 ML IV SCH (14:10)
--- NOTE | 2021-02-14 15:26 | PN ---
PROGRESS NOTE Patient is seen for followup for hyponatremia which was hypervolemic. Patient was maintained on Lasix. Her sodium was up to 132 yesterday; however, today it is down to 122. The patient has been feeling worse as well. She is complaining of pain in the back area. She did have some urine retention, for which a straight catheterization was done for about 400 mL of urine. Her Garcia catheter was removed yesterday. The patient apparently had not voided at all since the catheter was removed 24 hours ago. On examination today, blood pressure was 126/73, heart rate 91 per minute. She is afebrile. EXAMINATION OF THE HEART: S1 and S2. EXAMINATION OF LUNGS: Bilateral breath sounds are heard. ABDOMEN: Soft, nontender. LOWER EXTREMITIES: Examination of lower extremities shows edema 1+ bilaterally. 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 Labs show sodium 122, potassium 4.5, chloride 89, BUN 16, creatinine 0.37. ASSESSMENT: 1. Hyponatremia which was hypervolemic, currently significantly dropped about 10 points over 24 hours, possibly related to some degree of SIADH with pain, which was new. The patient also had urine retention, although only about 400 mL was obtained when a straight catheterization was done today. She has been maintained on IV Lasix, which I will hold for now, and patient will be started on 3% saline with close monitoring of sodium levels. She will likely need a dose of Samsca once serum sodium has improved slightly, since this was an acute drop in her sodium level. 2. Volume overload, currently improved. 3. Status post left hip arthroplasty with revision for fall and fracture. Revision was done on 02/07/2021. 4. Pyuria, most likely underlying urinary tract infection. Urine culture will be sent out. Patient has been started on Levaquin. PLAN: Hold Lasix. Start 3% saline. Check sodium every 4 hours for now. MMODL / IJN: [id number] /
[2021-02-14] MEDS ORDERED: FUROSEMIDE 10 MG/ML 2 ML VIAL IV ONE (19:39)
[2021-02-14] MEDS: MAGNESIUM OXIDE 400 MG TAB PO SCH (21:06)
[2021-02-14] MEDS: LORATADINE 10 MG TAB PO SCH (21:06)
[2021-02-14] MEDS: SENNOSIDES-DOCUSATE SODIUM 1 EACH TAB PO SCH (21:06)
[2021-02-14] MEDS: MELATONIN 5 MG TABLET PO SCH (21:06)
[2021-02-14] MEDS: ACETAMINOPHEN TAB 500 MG TAB PO SCH (21:07)
[2021-02-15] MEDS: OXYBUTYNIN CHLORIDE 5 MG TAB PO SCH ×2 (01:00→20:24)
[2021-02-15] MEDS: SODIUM CHLORIDE 3%(HYPERTONIC) 500 ML IV SCH (08:14)
[2021-02-15] MEDS: MIDODRINE 5 MG TAB PO SCH ×2 (09:41→18:03)
[2021-02-15] MEDS: VITAMIN E (DL,TOCOPHERYL ACET) 400 UNIT (180 MG) CAP PO SCH (09:42)
[2021-02-15] MEDS: CHOLECALCIFEROL 25 MCG (1000 IU) TABLET PO SCH (09:42)
[2021-02-15] MEDS: ASCORBIC ACID 500 MG TAB PO SCH (09:42)
[2021-02-15] MEDS: FLUTICASONE 50MCG/SPRAY NASAL 16GM EA NOSTRIL SCH ×2 (09:42→20:26)
[2021-02-15] MEDS: LEVOFLOXACIN 250MG-D5W PMX 250 MG in DEXTROSE/WATER 1 50ML.BAG IVPB SCH (09:42)
[2021-02-15] MEDS: RIVAROXABAN 10 MG TAB PO SCH (09:42)
[2021-02-15] MEDS: MULTIVITAMINS, THERA 1 EACH TAB PO SCH (09:42)
[2021-02-15] MEDS: CALCIUM CARBONATE 500 MG CHEWABLE PO SCH (09:42)
--- NOTE | 2021-02-15 09:45 | P.PN ---
Subjective Progress Note Date: 02/15/21 This patient is a 75-year-old female who is status-post left total hip arthroplasty on 02/06/31. Patient was getting dressed to discharge home, and she fell. An x-ray of the left hip taken after patient fell revealed a periprosthetic fracture of the left femur. Patient was then taken to the operating room yesterday on 02/07/21 for open reduction internal fixation left femur periprosthetic fracture, and revision left total hip arthroplasty. Today is postoperative day #8. The patient is seen and examined bedside this morning in the ICU. Patient states she is feeling better and stronger compared to yesterday. She states she ate a large breakfast. Pain in her back has improved. She is currently on antibiotics for UTI, her yeh catheter has been re-inserted. The pain in her hip is well controlled. No new complaints this morning. Vital signs stable. Objective - Vital Signs Vital signs: Vital Signs Temp 98.1 F 02/15/21 04:00 Pulse 86 02/15/21 07:00 Resp 21 02/15/21 07:00 BP 119/43 02/15/21 07:00 Pulse Ox 94 L 02/15/21 07:00 Intake & Output 02/14/21 02/15/21 02/15/21 18:59 06:59 18:59 Intake Total 120 410 Output Total 935 1080 Balance -815 -670 Weight 62.7 kg Intake: IV 120 360 Sodium Chloride 3%( 120 360 Hypertonic) 500 ml @ 30 mls/hr IV .[id number] [facility] Rx #:[id number] Oral 50 Output: Urine 935 1080 Other: Voiding Method Indwelling Catheter Indwelling Catheter - Exam On examination, the patient sitting up in a bed in no apparent distress. She is alert and oriented 3. On inspection of the left hip, there are two clean, dry, intact Optifoam dressings in place. No bleeding or drainage through the dressing. Mild-moderate swelling of the thigh. Thigh is soft and compressible. Left lower extremity is warm and well perfused with brisk capillary refill distally. Motor and sensory function is intact of the left lower extremity. She has good strength and ROM of the ankle. The calves are soft and nontender to palpation bilaterally. - Labs CBC & Chem 7: 02/13/21 06:03 02/15/21 03:53 Labs: Abnormal Lab Results - Last 24 Hours (Table) 02/14/21 02/14/21 02/14/21 Range/Units 10:24 12:27 13:50 Sodium 121 L 119 L* (137-145) mmol/L POC Glucose (mg/dL) 156 H (75-99) mg/dL 02/14/21 02/14/21 02/15/21 Range/Units 17:58 22:06 00:14 Sodium 120 L 120 L 123 L (137-145) mmol/L POC Glucose (mg/dL) (75-99) mg/dL 02/15/21 Range/Units 03:53 Sodium 125 L (137-145) mmol/L POC Glucose (mg/dL) (75-99) mg/dL Assessment and Plan Assessment: Status-post left total hip arthroplasty on 02/06/21 with post-operative fall, resulting in periprosthetic fracture of the left femur. Status-post open reduction internal fixation left femur periprosthetic fracture, and revision left total hip arthroplasty on 02/07/21. Post-operative day #8. Plan: - 50% weightbearing on the operative extremity. Up with assistance, up with a walker. - Physical therapy for gait and balance training. - Pain management as needed. - Xarelto for DVT prophylaxis. - Appreciate input from internal medicine. - Hyponatremia and UTI management per nephrology and internal medicine. - Anticipate discharge to rehab, when medically cleared.
--- NOTE | 2021-02-15 14:54 | P.PN ---
Subjective Progress Note Date: 02/15/21 Patient was seen and evaluated by me this morning. She was transferred to the ICU for hypertonic saline infusion. No acute events overnight. Objective - Vital Signs Vital signs: Vital Signs Temp 98.4 F 02/15/21 08:00 Pulse 90 02/15/21 11:00 Resp 23 02/15/21 11:00 BP 112/44 02/15/21 11:00 Pulse Ox 94 L 02/15/21 11:00 Intake & Output 02/14/21 02/15/21 02/15/21 18:59 06:59 18:59 Intake Total 120 410 50 Output Total 935 1080 335 Balance -815 -670 -285 Weight 62.7 kg Intake: IV 120 360 50 Levofloxacin 250Mg-D5w 50 Pmx 250 mg In Dextrose/ Water 1 50ml.bag @ 50 mls /hr IVPB Q24H [facility] Rx#: [id number] Sodium Chloride 3%( 120 360 0 Hypertonic) 500 ml @ 30 mls/hr IV .[id number] [facility] Rx #:[id number] Oral 50 Output: Urine 935 1080 335 Other: Voiding Method Indwelling Catheter Indwelling Catheter - Exam General: The patient is awake and alert, in no distress Eye: there is normal conjunctiva bilaterally. Neck: The neck is supple, there is no JVD. Cardiovascular: Normal S1-S2, no S3-S4, no murmurs. Respiratory: Lungs clear to auscultation bilaterally Gastrointestinal: Abdomen is soft, nontender Musculoskeletal: There is no pedal edema. Neurological:. Speech is normal. Skin: Skin is warm and dry - Labs CBC & Chem 7: 02/13/21 06:03 02/15/21 09:19 Labs: Abnormal Lab Results - Last 24 Hours (Table) 02/14/21 02/14/21 02/15/21 Range/Units 17:58 22:06 00:14 Sodium 120 L 120 L 123 L (137-145) mmol/L 02/15/21 02/15/21 Range/Units 03:53 09:19 Sodium 125 L 125 L (137-145) mmol/L Assessment and Plan Assessment: Patient is a 75-year-old female with a history of ALLERGIC rhinitis, vertigo, and osteoarthritis who presetned for elective LAVONNE. She was doing well postoperatively however she did have a fall which resulted in a periprosthetic left hip fracture. She underwent repeat operative repair on 02/07 without any immediate postoperative complications. on 02/08 her Hgb was 6.9 and her sodium was 128. She was ordered 1 unit of pRBC. Her hemoglobin stabilized. She did develop some hyponatremia. 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 Fluids were stopped and she was started on IV diuresis. Acute blood loss anemia, with iron deficiency anemia - IV iron X 3 completed , outpatient,outpatient GI evaluation from PCP - s/p 1 unit pRBC - stable Hyponatremia thought to be due to SIADH - Patient was started on Lasix. Sodium level worsened to 122. Nephrology following closely. Patient was transferred to the ICU for hypertonic saline infusion. Urinary retention Vertigo -As needed meclizine Periprosthetic fracture on internal prosthetic left hip joint, management per orthopedic Today, I reviewed her urinalysis. Continue current management. Appreciate informatics consultant's recommendations. The repeat lab work in the morning.
--- NOTE | 2021-02-15 16:57 | PN ---
PROGRESS NOTE Patient is seen for followup for hyponatremia. The patient was transferred to the ICU yesterday to start 3% saline as her sodium had dropped about 10 points in 24 hours. She did receive a couple of doses of Lasix. The sodium was up to 125 and her 3% saline is discontinued. Overall, patient states she is feeling better. She is eating better as well. PHYSICAL EXAMINATION: On examination today, blood pressure 109/44, heart rate 101 per minute. She is afebrile. Examination of the heart S1, S2. Examination of the lungs, decreased breath sounds at the bases. Abdomen is soft, nontender. Examination of lower extremities shows edema 1+ bilaterally. 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 LAB: Show serum sodium 125 at about 9:00 am this morning. Repeat sodium is pending. The UA showed evidence of pyuria. I do not see a urine culture sent out. The patient is maintained on Levaquin. ASSESSMENT: 1. Hyponatremia, hypervolemic with significant worsening yesterday, possibly related to an element of SIADH from pain currently off 3% saline. Sodium was 125. The patient has received a couple of doses of Lasix. Depending on her repeat sodium, I will add Samsca. The patient is encouraged to maintain good oral protein intake and continue off IV fluids. 2. Volume overload currently improved. 3. Status post left hip hemiarthroplasty with revision, status post fall and fracture of the femur. 4. Pyuria, currently maintained on antibiotics. I do not see a urine culture. 5. Anemia, status post packed RBCs transfusion. No active bleeding noted currently. PLAN: Repeat sodium this evening. Add tolvaptan. Continue to maintain gentle diuresis and increase oral intake of protein. Check urine culture. MMODL / IJN: [id number] /
--- NOTE | 2021-02-15 17:20 | P.CNPUL ---
History of Present Illness Consult date: 02/15/21 Requesting physician: Bhavana Griggs Chief complaint: Hyponatremia History of present illness: This is a 75-year-old white female patient who came in for an elective left total hip arthroplasty via a direct anterior approach on 02/06/2021 for severe osteoarthritis of the left hip by Dr. Quinton Chang. He was doing well in the postoperative period however she suffered a fall which resulted in the periprosthetic hip fracture of the left hip warranting her admission for further management. On 02/07/2021 patient underwent revision of left total hip arthroplasty. Patient's past medical history is significant for hypertension, attest her arthritis, GERD/reflux, cataracts. Her past surgical history is significant for cholecystectomy, tonsillectomy, tubal ligation, cataract surgery, bilateral knee arthroplasty. Patient has no history of smoking, drug abuse or alcohol abuse. In postoperative period patient was noted to have a serum sodium that was down to 128. Preoperatively on 01/31/2021 her sodium was 133. Nephrology was consulted and recommended 3% hypertonic saline infusion. Note that the patient has developed generalized edema with increased swelling in her upper and lower extremities especially in the left leg. And she was receiving intermittent doses of Lasix. Her chest x-ray on 02/11/2021 showed chronic changes without evidence for acute pulmonary disease, she denies any shortness of breath, she has not required supplemental oxygen, she is 96% on room air, and some low-grade fevers with a temp of 99F in the postoperative period, she is afebrile today, blood pressure is stable. Patient has been producing a large volume of urine and she has been in significant negative net fluid balance over the last several days. Currently nephrology is following, patient is neurologically intact, no weakness, no lethargy, no seizures. She is breathing comfortably. She was transferred to the ICU yesterday on 02/14/2021 for infusion of hypertonic saline for a serum sodium of 122. Her potassium was 4.5, chloride is 89, BUN was 16, creatinine was 0.37. White count was 8.8, hemoglobin was 9.2. Follow-up chest x-ray yesterday showed no active cardiopulmonary disease. This morning she seen in intensive care unit, she is resting comfortably in bed, she is breathing comfortably, lung sounds are clear. Neurologically intact, today's sodium is 125. Patient's hypertonic saline is currently off, she is tolerating oral intake, denies any specific complaints, left hip incision is clean dry and intact, covered with surgical dressing. Distal pulses are intact, no paresthesias. Only catheter is in place, and patient is still significantly in negative net fluid balance over the last 24 hours. In -1.4 L negative net fluid balance. Has mild to moderate edema involving bilateral lower extremities. She has received 2 units of packed red blood cells. Last hemoglobin was 9.2. Review of Systems All systems: negative Constitutional: Denies chills, Denies fever Eyes: denies blurred vision, denies pain Ears, nose, mouth and throat: Denies headache, Denies sore throat Cardiovascular: Denies chest pain, Denies shortness of breath Respiratory: Denies cough Gastrointestinal: Denies abdominal pain, Denies diarrhea, Denies nausea, Denies vomiting Genitourinary: Denies dysuria, Denies hematuria Musculoskeletal: Denies myalgias Integumentary: Denies pruritus, Denies rash Neurological: Denies numbness, Denies weakness Psychiatric: Denies anxiety, Denies depression Endocrine: Denies fatigue, Denies weight change Past Medical History Past Medical History: GERD/Reflux, Osteoarthritis (OA), Skin Disorder Additional Past Medical History / Comment(s): heart murmer, eczema, "bladder leakage", vertigo History of Any Multi-Drug Resistant Organisms: None Reported Past Surgical History: Cholecystectomy, Joint Replacement, Tonsillectomy, Tubal Ligation Additional Past Surgical History / Comment(s): rasta knee replacements, rasta CATARACTS removed Past Anesthesia/Blood Transfusion Reactions: No Reported Reaction Additional Past Anesthesia/Blood Transfusion Reaction / Comment(s): . Past Psychological History: No Psychological Hx Reported Smoking Status: Never smoker Past Alcohol Use History: None Reported Past Drug Use History: None Reported - Past Family History Mother Family Medical History: Cancer Additional Family Medical History / Comment(s): large cell lymphoma Brother(s) Family Medical History: Cancer Additional Family Medical History / Comment(s): lung Medications and Allergies Home Medications Medication Instructions Recorded Confirmed Type Acetaminophen [Tylenol Arthritis] 1,300 mg PO HS 09/04/18 02/06/21 History Ascorbic Acid [Vitamin C] 1,000 mg PO DAILY 09/04/18 02/01/21 History Aspirin 81 mg PO DAILY 09/04/18 02/01/21 History Cetirizine HCl 10 mg PO HS 09/04/18 02/06/21 History Cholecalciferol [Vitamin D3 (25 1,000 unit PO DAILY 09/04/18 02/01/21 History Mcg = 1000 Iu)] Melatonin 5 mg PO HS 09/04/18 02/01/21 History Multivit/Folic Acid/Vit K1 1 tab PO DAILY 09/04/18 02/01/21 History [One-A-Day Women's 50 Plus Tab] [place]-3 Fatty Acids [[place]-3] 1,000 mg PO HS 09/04/18 02/01/21 History Oxybutynin Chloride 5 mg PO HS 09/04/18 02/06/21 History Ubidecarenone [Co Q-10] 100 mg PO DAILY 09/04/18 02/01/21 History Vitamin B Complex 1 cap PO DAILY 09/04/18 02/01/21 History Vitamin E (Dl,Tocopheryl Acet) 400 unit PO DAILY 09/04/18 02/01/21 History [Vitamin E (400 Iu = 180 mg)] Calcium Carbonate 1,500 mg PO DAILY 09/16/18 02/01/21 History Magnesium Oxide [Mag-Ox] 250 mg PO HS 09/16/18 02/01/21 History Meclizine [Antivert] 12.5 mg PO Q6H PRN #30 tablet 01/24/20 02/06/21 Rx Triamcinolone 0.1% Ointment 1 applic TOPICAL DIRECTED PRN 02/01/21 02/06/21 History [Kenalog 0.1% Ointment] Triamcinolone Acetonide [Nasacort] 1 spray EA NOSTRIL BID 02/01/21 02/06/21 History HYDROcodone/APAP 7.5-325MG [[place] 1 - 2 tab PO Q6H PRN #32 tab 02/06/21 Rx 7.5-325] Ondansetron Odt [Zofran Odt] 1 tab PO Q8HR PRN #10 tab 02/06/21 Rx Sennosides [Senokot] 2 tab PO DAILY PRN #60 tablet 02/06/21 Rx Rivaroxaban [Xarelto] 10 mg PO DAILY #35 tab 02/07/21 Rx Allergies Allergy/AdvReac Type Severity Reaction Status Date / Time albuterol Allergy Rapid Verified 02/01/21 09:30 Heart Rate,throat and tongue pain casey Allergy Rash/Hives, Verified 02/01/21 09:30 nausea neomycin Allergy Itching/red Verified 02/01/21 09:30 skin Sulfa (Sulfonamide Allergy ringing in Verified 02/01/21 09:30 Antibiotics) ears and balance is off/SOB wool Allergy Rash/Hives Verified 02/01/21 09:30 flowering trees Allergy Unknown Uncoded 02/01/21 09:30 Physical Exam Vitals: Vital Signs Temp Pulse Resp BP Pulse Ox 02/15/21 15:00 104 H 24 120/55 96 02/15/21 14:00 101 H 16 109/44 98 02/15/21 13:00 98 7 L 112/48 96 02/15/21 12:00 98.2 F 131 H 21 122/51 95 02/15/21 11:00 90 23 112/44 94 L 02/15/21 10:00 101 H 18 123/44 94 L 02/15/21 09:00 109 H 21 127/76 97 02/15/21 08:00 98.4 F 103 H 18 119/52 96 02/15/21 07:00 86 21 119/43 94 L 02/15/21 06:00 104 H 16 121/48 96 02/15/21 05:00 87 20 126/47 92 L 02/15/21 04:00 98.1 F 99 13 125/46 95 02/15/21 03:00 89 20 115/50 94 L 02/15/21 02:00 93 22 127/54 97 02/15/21 01:00 89 21 129/50 94 L 02/15/21 00:00 98 F 91 15 123/51 96 02/14/21 23:00 97 15 111/45 92 L 02/14/21 22:00 96 21 126/49 92 L 02/14/21 21:00 98 18 125/47 97 02/14/21 20:00 98.2 F 97 20 117/49 96 02/14/21 19:00 94 20 127/45 95 02/14/21 18:30 90 26 H 138/55 96 02/14/21 18:00 95 14 125/53 98 02/14/21 17:30 97 11 L 116/42 96 02/14/21 17:00 114 H 13 123/49 97 Intake and Output 02/15/21 02/15/21 02/15/21 06:59 14:59 22:59 Intake Total 240 50 Output Total 670 370 40 Balance -430 -320 -40 Intake: IV 240 50 Levofloxacin 250Mg-D5w 50 Pmx 250 mg In Dextrose/ Water 1 50ml.bag @ 50 mls /hr IVPB Q24H [facility] Rx#: [id number] Sodium Chloride 3%( 240 0 Hypertonic) 500 ml @ 30 mls/hr IV .[id number] [facility] Rx #:[id number] Output: Urine 670 370 40 Other: Voiding Method Indwelling Catheter Weight 62.7 kg GENERAL EXAM: Alert, very pleasant, 75-year-old white female, resting comfortably in bed, on room air, the pulse ox of 95 96% comfortable in no apparent distress. HEAD: Normocephalic/atraumatic. EYES: Normal reaction of pupils, equal size. Conjunctiva pink, sclera white. NOSE: Clear with pink turbinates. THROAT: No erythema or exudates. NECK: No masses, no JVD, no thyroid enlargement, no adenopathy. CHEST: No chest wall deformity. Symmetrical expansion. LUNGS: Equal air entry with no crackles, wheeze, rhonchi or dullness. CVS: Regular rate and rhythm, normal S1 and S2, no gallops, no murmurs, no rubs ABDOMEN: Soft, nontender. No hepatosplenomegaly, normal bowel sounds, no guarding or rigidity. EXTREMITIES: No clubbing, bilateral lower extremities have mild to moderate amount of edema, left greater than right no cyanosis, 2+ pulses and upper and lower extremities. MUSCULOSKELETAL: Muscle strength and tone normal. SPINE: No scoliosis or deformity SKIN: No rashes. Left hip incision is clean dry and intact, covered with a surgical dressing CENTRAL NERVOUS SYSTEM: Alert and oriented -3. No focal deficits, tone is normal in all 4 extremities. PSYCHIATRIC: Alert and oriented -3. Appropriate affect. Intact judgment and insight. Results - Laboratory Findings CBC and BMP: 02/13/21 06:03 02/15/21 14:10 Abnormal lab findings: Abnormal Labs 02/07/21 02/07/21 02/08/21 06:44 16:49 06:24 RBC 2.67 L 2.62 L 2.10 L Hgb 8.7 L 8.6 L D 6.9 L* D Hct 26.5 L 26.2 L 20.7 L MCV 99.3 H 100.1 H MCH 32.6 H MCHC RDW Plt Count MPV 9.1 L Absolute Nucleated RBC Immature Gran # Eosinophils # 0.01 L NRBC/100 WBC Diff Sodium Chloride Anion Gap BUN Creatinine BUN/Creatinine Ratio Glucose POC Glucose (mg/dL) Osmolality Calcium Iron TIBC % Saturation AST Alkaline Phosphatase Total Protein Albumin Albumin/Globulin Ratio Urine Appearance Urine Protein Urine Blood Ur Leukocyte Esterase Urine RBC Urine WBC Urine Bacteria Crossmatch 02/08/21 02/08/21 02/08/21 06:24 06:24 09:09 RBC Hgb Hct MCV MCH MCHC RDW Plt Count MPV Absolute Nucleated RBC Immature Gran # Eosinophils # NRBC/100 WBC Diff Sodium 128 L Chloride Anion Gap BUN Creatinine 0.47 L BUN/Creatinine Ratio Glucose 113 H POC Glucose (mg/dL) Osmolality 269 L Calcium 7.5 L Iron 6 L TIBC 198 L % Saturation 3.03 L AST Alkaline Phosphatase Total Protein Albumin Albumin/Globulin Ratio Urine Appearance Urine Protein Urine Blood Ur Leukocyte Esterase Urine RBC Urine WBC Urine Bacteria Crossmatch See Detail 02/08/21 02/08/21 02/08/21 12:07 18:27 21:46 RBC 2.46 L Hgb 8.2 L Hct 24.0 L MCV MCH MCHC RDW Plt Count MPV Absolute Nucleated RBC Immature Gran # Eosinophils # NRBC/100 WBC Diff Sodium 125 L 126 L Chloride Anion Gap BUN Creatinine 0.40 L 0.33 L BUN/Creatinine Ratio Glucose 155 H 175 H POC Glucose (mg/dL) Osmolality Calcium 8.2 L 7.8 L Iron TIBC % Saturation AST Alkaline Phosphatase Total Protein Albumin Albumin/Globulin Ratio Urine Appearance Urine Protein Urine Blood Ur Leukocyte Esterase Urine RBC Urine WBC Urine Bacteria Crossmatch 02/08/21 02/09/21 02/09/21 21:46 05:07 05:07 RBC 2.21 L Hgb 7.1 L Hct 21.5 L MCV MCH MCHC RDW Plt Count MPV Absolute Nucleated RBC Immature Gran # Eosinophils # NRBC/100 WBC Diff Sodium 126 L 127 L Chloride Anion Gap BUN 6 L Creatinine 0.33 L 0.34 L BUN/Creatinine Ratio Glucose 150 H 108 H POC Glucose (mg/dL) Osmolality Calcium 7.5 L 7.3 L Iron TIBC % Saturation AST Alkaline Phosphatase Total Protein Albumin Albumin/Globulin Ratio Urine Appearance Urine Protein Urine Blood Ur Leukocyte Esterase Urine RBC Urine WBC Urine Bacteria Crossmatch 02/09/21 02/09/21 02/09/21 14:35 14:35 20:48 RBC 2.18 L 2.23 L Hgb 6.9 L* 7.4 L Hct 21.6 L 21.9 L MCV 99.1 H MCH MCHC 31.9 L RDW Plt Count MPV Absolute Nucleated RBC Immature Gran # 0.05 H Eosinophils # 0 L NRBC/100 WBC Diff Sodium 129 L Chloride Anion Gap BUN Creatinine 0.44 L BUN/Creatinine Ratio Glucose 219 H POC Glucose (mg/dL) Osmolality Calcium 7.8 L Iron TIBC % Saturation AST Alkaline Phosphatase Total Protein Albumin Albumin/Globulin Ratio Urine Appearance Urine Protein Urine Blood Ur Leukocyte Esterase Urine RBC Urine WBC Urine Bacteria Crossmatch 02/10/21 02/10/21 02/10/21 07:21 07:21 16:50 RBC 2.02 L Hgb 6.2 L* Hct 19.5 L* MCV MCH MCHC 31.8 L RDW Plt Count MPV 9.3 L Absolute Nucleated RBC Immature Gran # Eosinophils # NRBC/100 WBC Diff Sodium 129 L 128 L Chloride Anion Gap BUN Creatinine 0.38 L 0.39 L BUN/Creatinine Ratio Glucose 108 H 124 H POC Glucose (mg/dL) Osmolality Calcium 7.5 L 7.9 L Iron TIBC % Saturation AST Alkaline Phosphatase Total Protein Albumin Albumin/Globulin Ratio Urine Appearance Urine Protein Urine Blood Ur Leukocyte Esterase Urine RBC Urine WBC Urine Bacteria Crossmatch 02/11/21 02/11/21 02/11/21 05:29 05:29 12:10 RBC 2.65 L 2.91 L Hgb 7.9 L 9.2 L D Hct 24.4 L 27.4 L MCV MCH MCHC RDW 16.7 H 16.6 H Plt Count MPV 8.9 L Absolute Nucleated RBC 0.03 H Immature Gran # 0.11 H Eosinophils # NRBC/100 WBC Diff 0.4 H Sodium 127 L Chloride 97 L Anion Gap BUN Creatinine 0.39 L BUN/Creatinine Ratio Glucose 110 H POC Glucose (mg/dL) Osmolality Calcium 7.8 L Iron TIBC % Saturation AST Alkaline Phosphatase Total Protein Albumin Albumin/Globulin Ratio Urine Appearance Urine Protein Urine Blood Ur Leukocyte Esterase Urine RBC Urine WBC Urine Bacteria Crossmatch 02/12/21 02/12/21 02/13/21 07:26 07:26 06:03 RBC 2.79 L 2.91 L Hgb 8.5 L 9.2 L Hct 26.4 L 27.8 L MCV MCH MCHC RDW 16.4 H 16.9 H Plt Count 545 H MPV 8.8 L Absolute Nucleated RBC 0.03 H Immature Gran # 0.18 H Eosinophils # NRBC/100 WBC Diff 0.4 H Sodium 132 L Chloride Anion Gap 3.50 L BUN Creatinine 0.4 L BUN/Creatinine Ratio 30.00 H Glucose 120 H POC Glucose (mg/dL) Osmolality Calcium 8.0 L Iron TIBC % Saturation AST 55 H Alkaline Phosphatase 152 H Total Protein 4.3 L Albumin 2.60 L Albumin/Globulin Ratio 1.53 L Urine Appearance Urine Protein Urine Blood Ur Leukocyte Esterase Urine RBC Urine WBC Urine Bacteria Crossmatch 02/13/21 02/14/21 02/14/21 06:03 05:41 07:30 RBC Hgb Hct MCV MCH MCHC RDW Plt Count MPV Absolute Nucleated RBC Immature Gran # Eosinophils # NRBC/100 WBC Diff Sodium 132 L 122 L Chloride 89 L Anion Gap BUN Creatinine 0.3 L 0.37 L BUN/Creatinine Ratio 50.00 H Glucose 129 H POC Glucose (mg/dL) Osmolality Calcium 8.1 L 8.1 L Iron TIBC % Saturation AST Alkaline Phosphatase Total Protein Albumin Albumin/Globulin Ratio Urine Appearance Cloudy H Urine Protein 1+ H Urine Blood Small H Ur Leukocyte Esterase Large H Urine RBC 44 H Urine WBC 80 H Urine Bacteria Rare H Crossmatch 02/14/21 02/14/21 02/14/21 10:24 12:27 13:50 RBC Hgb Hct MCV MCH MCHC RDW Plt Count MPV Absolute Nucleated RBC Immature Gran # Eosinophils # NRBC/100 WBC Diff Sodium 121 L 119 L* Chloride Anion Gap BUN Creatinine BUN/Creatinine Ratio Glucose POC Glucose (mg/dL) 156 H Osmolality Calcium Iron TIBC % Saturation AST Alkaline Phosphatase Total Protein Albumin Albumin/Globulin Ratio Urine Appearance Urine Protein Urine Blood Ur Leukocyte Esterase Urine RBC Urine WBC Urine Bacteria Crossmatch 02/14/21 02/14/21 02/15/21 17:58 22:06 00:14 RBC Hgb Hct MCV MCH MCHC RDW Plt Count MPV Absolute Nucleated RBC Immature Gran # Eosinophils # NRBC/100 WBC Diff Sodium 120 L 120 L 123 L Chloride Anion Gap BUN Creatinine BUN/Creatinine Ratio Glucose POC Glucose (mg/dL) Osmolality Calcium Iron TIBC % Saturation AST Alkaline Phosphatase Total Protein Albumin Albumin/Globulin Ratio Urine Appearance Urine Protein Urine Blood Ur Leukocyte Esterase Urine RBC Urine WBC Urine Bacteria Crossmatch 02/15/21 02/15/21 02/15/21 03:53 09:19 14:10 RBC Hgb Hct MCV MCH MCHC RDW Plt Count MPV Absolute Nucleated RBC Immature Gran # Eosinophils # NRBC/100 WBC Diff Sodium 125 L 125 L 125 L Chloride Anion Gap BUN Creatinine BUN/Creatinine Ratio Glucose POC Glucose (mg/dL) Osmolality Calcium Iron TIBC % Saturation AST Alkaline Phosphatase Total Protein Albumin Albumin/Globulin Ratio Urine Appearance Urine Protein Urine Blood Ur Leukocyte Esterase Urine RBC Urine WBC Urine Bacteria Crossmatch - Diagnostic Findings Chest x-ray: report reviewed, image reviewed Assessment and Plan Plan: Assessment: #1. Acute hyponatremia, possibly hyper fully make, patient has received intermittent doses of Lasix, today's sodium is 125, patient has a generalized e tulio, but chest x-ray has shown no acute pulmonary process. Patient did require 3% hypertonic saline infusion. Nephrology is following. A component of SIADH is also possible related to postoperative pain #2. Status post left hip arthroplasty on 02/06/2021 severe left hip osteoarthritis #3. Inpatient fall and patient suffered a periprosthetic fracture of the left femur, status post revision of the left total hip arthroplasty on 02/07/2021 #4. Postoperative blood loss anemia, status post transfusion with 2 units of packed red blood cells, and expected outcome of left hip surgery #5. Acute urinary tract infection, on Levaquin #6. Vertigo #7. Urinary retention #8. Osteoarthritis . History of bilateral knee replacements #9. GERD/reflux #10. History of tubal ligation #11. Cataract surgery #12. Never smoker, no history of chronic lung disease Plan: Today's labs have been noted, serum sodium is up to 125 Nephrology following, 3% hypertonic saline is currently off Patient is tolerating oral intake, no nausea vomiting or diarrhea She seems to be generally swollen, the chest x-ray shows no acute pulmonary process No shortness of breath Her pain is under reasonable control No acute events overnight Sodium management per nephrology We'll place the patient on 1.5 L water restriction in the 24 hours Follow-up labs tomorrow Stable for transfer out of intensive care unit today to general medical floor I performed a history & physical examination of the patient and discussed their management with my nurse practitioner, Joan Pérez. I reviewed the nurse practitioner's note and agree with the documented findings and plan of care. Lung sounds are positive for diminished breath sounds throughout the lung bustillos. The findings and the impression was discussed with the patient. I attest to the documentation by the nurse practitioner. Time with Patient: Greater than 30
[2021-02-15] MEDS: LORATADINE 10 MG TAB PO SCH (20:23)
[2021-02-15] MEDS: ACETAMINOPHEN TAB 500 MG TAB PO SCH (20:23)
[2021-02-15] MEDS: MAGNESIUM OXIDE 400 MG TAB PO SCH (20:24)
[2021-02-15] MEDS: SENNOSIDES-DOCUSATE SODIUM 1 EACH TAB PO SCH (20:24)
[2021-02-15] MEDS: MELATONIN 5 MG TABLET PO SCH (20:24)
[2021-02-16] MEDS: MIDODRINE 5 MG TAB PO SCH ×2 (06:42→16:57)
[2021-02-16] MEDS: ASCORBIC ACID 500 MG TAB PO SCH (09:01)
[2021-02-16] MEDS: VITAMIN E (DL,TOCOPHERYL ACET) 400 UNIT (180 MG) CAP PO SCH (09:01)
[2021-02-16] MEDS: FLUTICASONE 50MCG/SPRAY NASAL 16GM EA NOSTRIL SCH ×2 (09:01→20:34)
[2021-02-16] MEDS: CALCIUM CARBONATE 500 MG CHEWABLE PO SCH (09:01)
[2021-02-16] MEDS: LEVOFLOXACIN 250 MG TAB PO SCH (09:01)
[2021-02-16] MEDS: CHOLECALCIFEROL 25 MCG (1000 IU) TABLET PO SCH (09:01)
[2021-02-16] MEDS: MULTIVITAMINS, THERA 1 EACH TAB PO SCH (09:01)
[2021-02-16] MEDS: RIVAROXABAN 10 MG TAB PO SCH (09:01)
--- NOTE | 2021-02-16 09:43 | P.PN ---
Subjective Progress Note Date: 02/16/21 Principal diagnosis: Left hip hemiarthroplasty revision surgery, hyponatremia This is a 75-year-old white female patient who came in for an elective left total hip arthroplasty via a direct anterior approach on 02/06/2021 for severe osteoarthritis of the left hip by Dr. Quinton Chang. He was doing well in the postoperative period however she suffered a fall which resulted in the periprosthetic hip fracture of the left hip warranting her admission for further management. On 02/07/2021 patient underwent revision of left total hip arthroplasty. Patient's past medical history is significant for hypertension, attest her arthritis, GERD/reflux, cataracts. Her past surgical history is significant for cholecystectomy, tonsillectomy, tubal ligation, cataract surgery, bilateral knee arthroplasty. Patient has no history of smoking, drug abuse or alcohol abuse. In postoperative period patient was noted to have a serum sodium that was down to 128. Preoperatively on 01/31/2021 her sodium was 133. Nephrology was consulted and recommended 3% hypertonic saline infusion. Note that the patient has developed generalized edema with increased swelling in her upper and lower extremities especially in the left leg. And she was receiving intermittent doses of Lasix. Her chest x-ray on 02/11/2021 showed chronic changes without evidence for acute pulmonary disease, she denies any shortness of breath, she has not required supplemental oxygen, she is 96% on room air, and some low-grade fevers with a temp of 99F in the postoperative period, she is afebrile today, blood pressure is stable. Patient has been producing a large volume of urine and she has been in significant negative net fluid balance over the last several days. Currently nephrology is following, patient is neurologically intact, no weakness, no lethargy, no seizures. She is breathing comfortably. She was transferred to the ICU yesterday on 02/14/2021 for infusion of hypertonic saline for a serum sodium of 122. Her potassium was 4.5, chloride is 89, BUN was 16, creatinine was 0.37. White count was 8.8, hemoglobin was 9.2. Follow-up chest x-ray yesterday showed no active cardiopulmonary disease. This morning she seen in intensive care unit, she is resting comfortably in bed, she is breathing comfortably, lung sounds are clear. Neurologically intact, today's sodium is 125. Patient's hypertonic saline is currently off, she is tolerating oral intake, denies any specific complaints, le ft hip incision is clean dry and intact, covered with surgical dressing. Distal pulses are intact, no paresthesias. Only catheter is in place, and patient is still significantly in negative net fluid balance over the last 24 hours. In - 1.4 L negative net fluid balance. Has mild to moderate edema involving bilateral lower extremities. She has received 2 units of packed red blood cells. Last hemoglobin was 9.2. On today's evaluation on 02/16/2021 patient is resting comfortably in the ICU. She is awake and alert, oriented 3, denies any acute distress, other than feeling cold. No shortness of breath, no cough, no fever or chills, vital signs are stable, room air pulse ox is 92%, patient is working on it since from a she is achieving 1.5 L on it today. Sounds are clear to auscultation. Patient reports no specific complaints. She is tolerating oral intake, no nausea vomiting or diarrhea, she has no running IVs. On 1.5 L water restriction over the last 24 hours, her serum sodium is 126. Catheter is in place, and patient is producing adequate amount of urine, and she is in -1.4 L over the last 24 hours, lower extremity edema although still remains is improved from a few days ago. She reports her fingers being less puffy as well. Yesterday she set up in the chair, tolerated activity fairly well, left hip incisions clean dry and intact covered with surgical dressing. Objective - Vital Signs Vital signs: Vital Signs Temp 98.5 F 02/16/21 08:00 Pulse 96 02/16/21 09:00 Resp 24 02/16/21 09:00 BP 121/45 02/16/21 09:00 Pulse Ox 96 02/16/21 09:00 Intake & Output 02/15/21 02/16/21 02/16/21 18:59 06:59 18:59 Intake Total 50 Output Total 964 715 140 Balance -695 -715 -140 Weight 62.9 kg Intake: IV 50 Levofloxacin 250Mg-D5w 50 Pmx 250 mg In Dextrose/ Water 1 50ml.bag @ 50 mls /hr IVPB Q24H [facility] Rx#: [id number] Sodium Chloride 3%( 0 Hypertonic) 500 ml @ 30 mls/hr IV .[id number] [facility] Rx #:[id number] Output: Urine 745 715 140 Other: Voiding Method Indwelling Catheter Indwelling Catheter Indwelling Catheter # Bowel Movements 1 - Exam GENERAL EXAM: Alert, very pleasant, 75-year-old white female, resting comfortably in bed, on room air, the pulse ox of 95-96% comfortable in no apparent distress. HEAD: Normocephalic/atraumatic. EYES: Normal reaction of pupils, equal size. Conjunctiva pink, sclera white. NOSE: Clear with pink turbinates. THROAT: No erythema or exudates. NECK: No masses, no JVD, no thyroid enlargement, no adenopathy. CHEST: No chest wall deformity. Symmetrical expansion. LUNGS: Equal air entry with no crackles, wheeze, rhonchi or dullness. CVS: Regular rate and rhythm, normal S1 and S2, no gallops, no murmurs, no rubs ABDOMEN: Soft, nontender. No hepatosplenomegaly, normal bowel sounds, no guarding or rigidity. EXTREMITIES: No clubbing, bilateral lower extremities have mild to moderate amount of edema, left greater than right no cyanosis, 2+ pulses and upper and lower extremities. MUSCULOSKELETAL: Muscle strength and tone normal. SPINE: No scoliosis or deformity SKIN: No rashes. Left hip incision is clean dry and intact, covered with a surgical dressing CENTRAL NERVOUS SYSTEM: Alert and oriented -3. No focal deficits, tone is normal in all 4 extremities. PSYCHIATRIC: Alert and oriented -3. Appropriate affect. Intact judgment and insight. - Labs CBC & Chem 7: 02/13/21 06:03 02/16/21 03:00 Labs: Abnormal Lab Results - Last 24 Hours (Table) 02/15/21 02/15/21 02/15/21 Range/Units 09:19 14:10 18:37 Sodium 125 L 125 L 124 L (137-145) mmol/L 02/15/21 02/16/21 Range/Units 23:00 03:00 Sodium 123 L 126 L (137-145) mmol/L Microbiology - Last 24 Hours (Table) 02/15/21 07:30 Urine Culture - Preliminary Urine,Clean Catch Assessment and Plan Plan: Assessment: #1. Acute hyponatremia, possibly hyper fully make, patient has received intermittent doses of Lasix, today's sodium is 125, patient has a generalized edema, but chest x-ray has shown no acute pulmonary process. Patient did require 3% hypertonic saline infusion. Nephrology is following. A component of SIADH is also possible related to postoperative pain #2. Status post left hip arthroplasty on 02/06/2021 severe left hip osteoarthritis #3. Inpatient fall and patient suffered a periprosthetic fracture of the left femur, status post revision of the left total hip arthroplasty on 02/07/2021 #4. Postoperative blood loss anemia, status post transfusion with 2 units of packed red blood cells, and expected outcome of left hip surgery #5. Acute urinary tract infection, on Levaquin #6. Vertigo #7. Urinary retention #8. Osteoarthritis. History of bilateral knee replacements #9. GERD/reflux #10. History of tubal ligation #11. Cataract surgery #12. Never smoker, no history of chronic lung disease Plan: Today's labs have been noted, serum sodium is up to 126 Nephrology following, continue water restriction producing good urine Patient is tolerating oral intake, no nausea vomiting or diarrhea No breathing difficulty Her pain is under reasonable control No acute events overnight Sodium management per nephrology Stable for transfer out of intensive care unit today to general medical floor I performed a history & physical examination of the patient and discussed their management with my nurse practitioner, Joan Pérez. I reviewed the nurse practitioner's note and agree with the documented findings and plan of care. Lung sounds are positive for diminished breath sounds throughout the lung bustillos. The findings and the impression was discussed with the patient. I attest to the documentation by the nurse practitioner. Time with Patient: Less than 30
--- NOTE | 2021-02-16 10:17 | P.PN ---
Subjective Progress Note Date: 02/16/21 This is a 75-year-old female who is status post ORIF of left periprosthetic fracture and revision left total hip arthroplasty. This is postoperative day #9 and patient is seen and evaluated at bedside today. Patient has been in the ICU for hyponatremia. Patient states that she is doing well this morning and has been able to work with physical therapy to get in and out of bed. Patient denies any new complaints today. Patient denies any fever/chills, numbness, weakness, tingling, shortness of breath or chest pain. Objective - Vital Signs Vital signs: Vital Signs Temp 98.5 F 02/16/21 08:00 Pulse 96 02/16/21 09:00 Resp 24 02/16/21 09:00 BP 121/45 02/16/21 09:00 Pulse Ox 96 02/16/21 09:00 Intake & Output 02/15/21 02/16/21 02/16/21 18:59 06:59 18:59 Intake Total 50 Output Total 745 715 140 Balance -695 -715 -140 Weight 62.9 kg Intake: IV 50 Levofloxacin 250Mg-D5w 50 Pmx 250 mg In Dextrose/ Water 1 50ml.bag @ 50 mls /hr IVPB Q24H [facility] Rx#: [id number] Sodium Chloride 3%( 0 Hypertonic) 500 ml @ 30 mls/hr IV .[id number] [facility] Rx #:[id number] Output: Urine 745 715 140 Other: Voiding Method Indwelling Catheter Indwelling Catheter Indwelling Catheter # Bowel Movements 1 - Exam Vital signs are stable. Patient is in no acute distress and is alert and oriented 3. Calf is soft and nontender to palpation. Dressings are clean, dry, and intact. Compartments are soft. Patient has full range of motion of the left foot and ankle. Sensation intact. Neurovascular status and circulatory status are intact. - Labs CBC & Chem 7: 02/13/21 06:03 02/16/21 03:00 Labs: Abnormal Lab Results - Last 24 Hours (Table) 02/15/21 02/15/21 02/15/21 Range/Units 09:19 14:10 18:37 Sodium 125 L 125 L 124 L (137-145) mmol/L 02/15/21 02/16/21 Range/Units 23:00 03:00 Sodium 123 L 126 L (137-145) mmol/L Microbiology - Last 24 Hours (Table) 02/15/21 07:30 Urine Culture - Preliminary Urine,Clean Catch Assessment and Plan (1) Osteoarthritis of left hip Current Visit: Yes Status: Acute Code(s): M16.12 - UNILATERAL PRIMARY OSTEOARTHRITIS, LEFT HIP SNOMED Code(s): 908753131993520 (2) Status post total hip replacement, left Current Visit: Yes Status: Acute Code(s): Z96.642 - PRESENCE OF LEFT ARTIFICIAL HIP JOINT SNOMED Code(s): 110251926601 (3) Periprosthetic fracture around internal prosthetic left hip joint, initial encounter Current Visit: Yes Status: Acute Code(s): M97.02XA - PERIPROSTH FRACTURE AROUND INTERNAL PROSTH L HIP JT, INIT SNOMED Code(s): 554825369 Plan: Continue routine postop care and pain control. Patient is to be 50% weightbearing to the left lower extremity.. Appreciate input from medicine. Hyponatremia being managed by internal medicine and nephrology. Discharge to ECF when medically able.
--- NOTE | 2021-02-16 10:48 | P.PN ---
Subjective Progress Note Date: 02/16/21 Patient was seen and evaluated by me this morning. She is doing well today. She does not have any complaints. Objective - Vital Signs Vital signs: Vital Signs Temp 98.5 F 02/16/21 08:00 Pulse 95 02/16/21 10:00 Resp 16 02/16/21 10:00 BP 119/48 02/16/21 10:00 Pulse Ox 95 02/16/21 10:00 Intake & Output 02/15/21 02/16/21 02/16/21 18:59 06:59 18:59 Intake Total 50 Output Total 745 715 140 Balance -695 -715 -140 Weight 62.9 kg Intake: IV 50 Levofloxacin 250Mg-D5w 50 Pmx 250 mg In Dextrose/ Water 1 50ml.bag @ 50 mls /hr IVPB Q24H [facility] Rx#: [id number] Sodium Chloride 3%( 0 Hypertonic) 500 ml @ 30 mls/hr IV .[id number] [facility] Rx #:[id number] Output: Urine 745 715 140 Other: Voiding Method Indwelling Catheter Indwelling Catheter Indwelling Catheter # Bowel Movements 1 - Exam General: The patient is awake and alert, in no distress Eye: there is normal conjunctiva bilaterally. Neck: The neck is supple, there is no JVD. Cardiovascular: Normal S1-S2, no S3-S4, no murmurs. Respiratory: Lungs clear to auscultation bilaterally Gastrointestinal: Abdomen is soft, nontender Musculoskeletal: There is no pedal edema. Neurological:. Speech is normal. Skin: Skin is warm and dry - Labs CBC & Chem 7: 02/13/21 06:03 02/16/21 03:00 Labs: Abnormal Lab Results - Last 24 Hours (Table) 02/15/21 02/15/21 02/15/21 Range/Units 09:19 14:10 18:37 Sodium 125 L 125 L 124 L (137-145) mmol/L 02/15/21 02/16/21 Range/Units 23:00 03:00 Sodium 123 L 126 L (137-145) mmol/L Microbiology - Last 24 Hours (Table) 02/15/21 07:30 Urine Culture - Preliminary Urine,Clean Catch Assessment and Plan Assessment: Patient is a 75-year-old female with a history of ALLERGIC rhinitis, vertigo, and osteoarthritis who presetned for elective LAVONNE. She was doing well pos toperatively however she did have a fall which resulted in a periprosthetic left hip fracture. She underwent repeat operative repair on 02/07 without any immediate postoperative complications. on 02/08 her Hgb was 6.9. She was ordered 1 unit of pRBC. Her hemoglobin stabilized. She did develop some hyponatremia. 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 Sodium level worsened to 122. Nephrology following closely. Patient was transferred to the ICU for hypertonic saline infusion. Serial sodium level is stable Urinary retention status post Garcia catheter insertion Vertigo -As needed meclizine Periprosthetic fracture on internal prosthetic left hip joint, management per orthopedic Today, I reviewed her urinalysis. Continue current management. Appreciate market consultant's recommendations. repeat lab work in the morning.
[2021-02-16] MEDS ORDERED: TOLVAPTAN 15 MG 1/2 TABLET PO ONE (12:00)
--- NOTE | 2021-02-16 12:26 | PN ---
PROGRESS NOTE Patient is seen for followup for hyponatremia. Patient was transferred to the ICU, as her sodium had dropped significantly over 24 hours. She was started on 3% saline. Patient is currently off of saline. She has been receiving Lasix on and off for volume overload. At this time patient is eating better and her sodium was up to 125 and then dropped down to 123. She did come up to 126 on her own. Patient is currently off of 3% saline. She has been eating better with increased protein intake. I will give her a dose of tolvaptan today. PHYSICAL EXAMINATION: On examination today, blood pressure is 119/48, heart rate 95 per minute. Patient is afebrile. EXAMINATION OF THE HEART: S1 and S2. EXAMINATION OF LUNGS: Bilateral breath sounds are heard. ABDOMEN: Soft, nontender. LOWER EXTREMITIES: Examination of lower extremities shows edema 1+ bilaterally, currently improved. LABS: Labs show sodium 126 at 3 a.m. this morning. No other labs available. ASSESSMENT: 1. Hyponatremia, hypervolemic initially and also component of SIADH, status post 3% saline two days ago due to significant drop in sodium, currently improving. We will maintain patient on fluid restriction and I will give her a dose of tolvaptan today. Repeat labs later on this evening. Patient is encouraged to maintain good oral intake. Continue to avoid IV fluids. 2. Status post left hip arthroplasty with revision due to fall and fracture. 3. Acute blood loss anemia with iron deficiency, status post packed RBCs and IV iron. 4. Urine retention, status post Garcia catheter placement. 5. Volume overload, currently improved. PLAN: Repeat labs. Tolvaptan 15 mg p.o. x1 and repeat sodium later this evening. Maintain good oral protein intake and maintain fluid restriction. MMODL / IJN: [id number] /
[2021-02-16] MEDS: HYDROcodone/APAP 7.5-325MG 1 EACH TAB PO PRN (14:14)
[2021-02-16 14:23] LABS: African American GFR (CKD) >90 (>60 ml/min/1.73 sqM); Anion Gap 3 mmol/L; Blood Urea Nitrogen 20 mg/dL (7-17); Calcium 7.4 mg/dL (8.4-10.2); Carbon Dioxide 27 mmol/L (22-30); Chloride 99 mmol/L (98-107); Glucose 98 mg/dL (74-99); Non-African American GFR(CKD) >90 (>60 ml/min/1.73 sqM); Potassium 3.9 mmol/L (3.5-5.1); Sodium 129 mmol/L (137-145)
[2021-02-16] MEDS: ACETAMINOPHEN TAB 500 MG TAB PO SCH (20:33)
[2021-02-16] MEDS: MAGNESIUM OXIDE 400 MG TAB PO SCH (20:33)
[2021-02-16] MEDS: SENNOSIDES-DOCUSATE SODIUM 1 EACH TAB PO SCH (20:33)
[2021-02-16] MEDS: LORATADINE 10 MG TAB PO SCH (20:33)
[2021-02-16] MEDS: MELATONIN 5 MG TABLET PO SCH (20:33)
[2021-02-16] MEDS: OXYBUTYNIN CHLORIDE 5 MG TAB PO SCH (20:58)
--- NOTE | 2021-02-17 06:39 | P.PN ---
Subjective Progress Note Date: 02/17/21 Principal diagnosis: This is a 75-year-old female followed up for hyponatremia. admission sodium was 128. She is admitted for elective hip surgery. After the surgery she fell and had fracture of her femur on the same side.social had 2 surgeries Her hyponatremia Is deemed to be hypervolemic because she has edema. Her urine osmolality was 606 and urine sodium was 20. She was started on IV Lasix, sodium has Jennifer improved to 132. Subsequently her sodium went down and was thought to be from SIADH additionally. She was given to Yesterday. As this morning are pending yesterday sodium was 129. Creatinine was 0.46. She is somewhat hypotensive. Urine output is 1460 for the last 24 hours. She denies any complaints no nausea vomiting headache no diarrhea appetite is fair she is on 1500 mL fluid restriction Objective - Vital Signs Vital signs: Vital Signs Temp 98.5 F 02/17/21 01:20 Pulse 101 H 02/17/21 01:20 Resp 14 02/17/21 01:20 BP 95/57 02/17/21 01:20 Pulse Ox 96 02/17/21 01:20 Intake & Output 02/16/21 02/16/21 02/17/21 06:59 18:59 06:59 Intake Total 240 Output Total 715 1090 700 Balance -715 -850 -700 Weight 62.9 kg Intake: Oral 240 Output: Urine 715 1090 700 Other: Voiding Method Indwelling Catheter Indwelling Catheter Indwelling Catheter # Bowel Movements 1 Exam is awake alert oriented HEENT exam no JVP neck is supple no facial asymmetry Lungs clear to auscultation good air entry bilaterally on room air Heart sounds unremarkable for any murmur rub gallop Abdomen soft nontender Extremity exam was trace edema Neurologically awake alert oriented - Labs CBC & Chem 7: 02/13/21 06:03 02/16/21 13:41 Labs: Abnormal Lab Results - Last 24 Hours (Table) 02/16/21 Range/Units 13:41 Sodium 129 L (137-145) mmol/L BUN 20 H (7-17) mg/dL Creatinine 0.46 L (0.52-1.04) mg/dL Calcium 7.4 L (8.4-10.2) mg/dL Microbiology - Last 24 Hours (Table) 09/08/21 07:30 Urine Culture - Preliminary Urine,Clean Catch Assessment and Plan Assessment: impression 1. Hyponatremia with edema, secondary to volume excess, responding to a IV Lasix 20 mg twice a day. Her sodium had slowly improved to 132. TSH is normal at 0.53. her urine osmolality repeat is 229 suggestive of dilution appropriately of her urine. Subsequently sodium worsened again from the peak of 132 on 02/13/2021 down to 119 and on 02/14/2021. She was given Tolvaptan YESTERDAY ON 02/16/2021 AFTER NOT RESPONDING WELL TO 3% saline. Sodium this morning is pending 2. Status post hip replacement for degenerative joint disease and subsequent fall because of hip fracture left femur and open reduction internal fixation on 02/06/2021. 3. Iron deficiency anemia, hemoglobin 6.2 on 02/10/2021, improved to 9.2 on 02/13/2021,further Improved with diuresis and reduction in intravascular volume. 4. Status post IV iron replacement. 5. Edema, secondary to hypoalbuminemia. improved Recommendation 1. Continue to watch sodium post. 2. Monitor labs daily
[2021-02-17] MEDS: MIDODRINE 5 MG TAB PO SCH ×2 (08:01→18:26)
[2021-02-17] MEDS: CALCIUM CARBONATE 500 MG CHEWABLE PO SCH (08:18)
[2021-02-17] MEDS: RIVAROXABAN 10 MG TAB PO SCH (08:19)
[2021-02-17] MEDS: VITAMIN E (DL,TOCOPHERYL ACET) 400 UNIT (180 MG) CAP PO SCH (08:19)
[2021-02-17] MEDS: CHOLECALCIFEROL 25 MCG (1000 IU) TABLET PO SCH (08:19)
[2021-02-17] MEDS: MULTIVITAMINS, THERA 1 EACH TAB PO SCH (08:19)
[2021-02-17] MEDS: LEVOFLOXACIN 250 MG TAB PO SCH (08:19)
[2021-02-17] MEDS: ASCORBIC ACID 500 MG TAB PO SCH (08:19)
[2021-02-17] MEDS: FLUTICASONE 50MCG/SPRAY NASAL 16GM EA NOSTRIL SCH ×2 (08:20→20:35)
[2021-02-17] MEDS: SIMETHICONE 40 MG/0.6 ML DROPS 2,000 MG/30 ML BOTTLE PO PRN (08:20)
[2021-02-17] MEDS: HYDROcodone/APAP 7.5-325MG 1 EACH TAB PO PRN ×2 (08:23→21:47)
--- NOTE | 2021-02-17 11:59 | P.PN ---
Subjective Progress Note Date: 02/17/21 This is a 75-year-old female who is status post ORIF of left periprosthetic fracture and revision left total hip arthroplasty. This is postoperative day #10 and patient is seen and evaluated at bedside today. Patient has been transferred out of the ICU. Patient states that she is doing well this morning and she denies any new complaints today. Patient denies any fever/chills, numbness, weakness, tingling, shortness of breath or chest pain. Objective - Vital Signs Vital signs: Vital Signs Temp 98.3 F 02/17/21 07:29 Pulse 96 02/17/21 07:29 Resp 14 02/17/21 07:29 BP 104/60 02/17/21 07:29 Pulse Ox 96 02/17/21 01:20 Intake & Output 02/16/21 02/17/21 02/17/21 18:59 06:59 18:59 Intake Total 240 Output Total 1090 700 Balance -850 -700 Intake: Oral 240 Output: Urine 1090 700 Other: Voiding Method Indwelling Catheter Indwelling Catheter Indwelling Catheter # Bowel Movements 1 - Exam Vital signs are stable. Patient is in no acute distress and is alert and oriented 3. Calf is soft and nontender to palpation. Incisions are clean, dry, and intact. No erythema or drainage. Sensation intact. Neurovascular status and circulatory status are intact. - Labs CBC & Chem 7: 02/13/21 06:03 02/16/21 13:41 Labs: Abnormal Lab Results - Last 24 Hours (Table) 02/16/21 Range/Units 13:41 Sodium 129 L (137-145) mmol/L BUN 20 H (7-17) mg/dL Creatinine 0.46 L (0.52-1.04) mg/dL Calcium 7.4 L (8.4-10.2) mg/dL Assessment and Plan (1) Osteoarthritis of left hip Current Visit: Yes Status: Acute Code(s): M16.12 - UNILATERAL PRIMARY OSTEOARTHRITIS, LEFT HIP SNOMED Code(s): 941409181702617 (2) Status post total hip replacement, left Current Visit: Yes Status: Acute Code(s): Z96.642 - PRESENCE OF LEFT ARTIFICIAL HIP JOINT SNOMED Code(s): 954547229516 (3) Periprosthetic fracture around internal prosthetic left hip joint, initial encounter Current Visit: Yes Status: Acute Code(s): M97.02XA - PERIPROSTH FRACTURE AROUND INTERNAL PROSTH L HIP JT, INIT SNOMED Code(s): 903828655 Plan: Continue routine postop care and pain control. Patient is to be 50% weightbearing to the left lower extremity. Appreciate input from medicine. Hyponatremia being managed by internal medicine and nephrology. Discharge to ECF when medically able.
--- NOTE | 2021-02-17 12:08 | P.DS ---
Providers Date of admission: 02/07/21 08:47 Expected date of discharge: 02/17/21 Attending physician: Quinton Chang Consults: 02/06/21 14:10 Consult Physician Routine Consulting Provider: Dawna Hagen Consult Reason/Comments: medical management Do you want consulting provider notified?: Yes 02/08/21 14:10 Consult Physician Routine Consulting Provider: Bhavana Griggs Consult Reason/Comments: hyponatremia Do you want consulting provider notified?: Yes 02/14/21 19:58 Consult Physician Routine Consulting Provider: Luis M Morales Consult Reason/Comments: low sodium Do you want consulting provider notified?: Already Contacted Primary care physician: Laurence Valles - Discharge Diagnosis(es) (1) Osteoarthritis of left hip Current Visit: Yes Status: Acute (2) Status post total hip replacement, left Current Visit: Yes Status: Acute (3) Periprosthetic fracture around internal prosthetic left hip joint, initial encounter Current Visit: Yes Status: Acute Hospital Course: This is a 75-year-old female with known history of degenerative arthritis of the left hip. The patient presented for evaluation as an outpatient. After discussion and consideration patient elected to proceed with total hip arthroplasty. The patient is seen preoperatively by Dr. Chang and cleared for surgery. Patient is admitted to [facility] on 02/06/2021 for total hip arthroplasty. The procedures performed without complication or sequelae. On 02/06/2021, in the postop area, the patient fell when she was getting dressed to go home. Before her fall she was able to work with physical therapy and was doing well with ambulation and stairs. X-rays after her fall revealed a periprosthetic fracture of the left femur. Patient was taken back to the operating room on 02/07/2021 and ORIF of left femur periprosthetic fracture and revision of left total hip arthroplasty was performed by Dr. Quinton Chang. Postoperatively, the patient did receive 2 blood transfusions and was noted to be hyponatremic. These issues have been closely managed by internal medicine and nephrology. The patient is improving. Labs and vital signs are stable on day of discharge. On day of discharge patient's hip incisions are healing well. There is minimal erythema. There is no drainage noted at this time. There is minimal soft tissue swelling to the hip and thigh. Patient has full foot and ankle motion without difficulty or pain. Neurovascular status to the left lower extremity is intact. Patient is discharged to rehabilitation in good condition. Please see med rec for accurate list of home medications. Plan - Discharge Summary Discharge Rx Participant: No New Discharge Prescriptions: New Sennosides [Senokot] 2 tab PO DAILY PRN #60 tablet PRN Reason: Constipation Ondansetron Odt [Zofran Odt] 1 tab PO Q8HR PRN #10 tab PRN Reason: Nausea Rivaroxaban [Xarelto] 10 mg PO DAILY #35 tab HYDROcodone/APAP 7.5-325MG [[place] 7.5-325] 1 - 2 tab PO Q6H PRN #32 tab PRN Reason: Pain No Action Vitamin E (Dl,Tocopheryl Acet) [Vitamin E (400 Iu = 180 mg)] 400 unit PO DAILY Multivit/Folic Acid/Vit K1 [One-A-Day Women's 50 Plus Tab] 1 tab PO DAILY Cholecalciferol [Vitamin D3 (25 Mcg = 1000 Iu)] 1,000 unit PO DAILY Vitamin B Complex 1 cap PO DAILY Ubidecarenone [Co Q-10] 100 mg PO DAILY [place]-3 Fatty Acids [[place]-3] 1,000 mg PO HS Ascorbic Acid [Vitamin C] 1,000 mg PO DAILY Oxybutynin Chloride 5 mg PO HS Melatonin 5 mg PO HS Cetirizine HCl 10 mg PO HS Aspirin 81 mg PO DAILY Acetaminophen [Tylenol Arthritis] 1,300 mg PO HS Magnesium Oxide [Mag-Ox] 250 mg PO HS Calcium Carbonate 1,500 mg PO DAILY Meclizine [Antivert] 12.5 mg PO Q6H PRN #30 tablet PRN Reason: dizziness Triamcinolone 0.1% Ointment [Kenalog 0.1% Ointment] 1 applic TOPICAL DIRECTED PRN PRN Reason: Rash Triamcinolone Acetonide [Nasacort] 1 spray EA NOSTRIL BID Discharge Medication List Acetaminophen [Tylenol Arthritis] 1,300 mg PO HS 09/04/18 [History] Ascorbic Acid [Vitamin C] 1,000 mg PO DAILY 09/04/18 [History] Aspirin 81 mg PO DAILY 09/04/18 [History] Cetirizine HCl 10 mg PO HS 09/04/18 [History] Cholecalciferol [Vitamin D3 (25 Mcg = 1000 Iu)] 1,000 unit PO DAILY 09/04/18 [History] Melatonin 5 mg PO HS 09/04/18 [History] Multivit/Folic Acid/Vit K1 [One-A-Day Women's 50 Plus Tab] 1 tab PO DAILY 09/04/18 [History] [place]-3 Fatty Acids [[place]-3] 1,000 mg PO HS 09/04/18 [History] Oxybutynin Chloride 5 mg PO HS 09/04/18 [History] Ubidecarenone [Co Q-10] 100 mg PO DAILY 09/04/18 [History] Vitamin B Complex 1 cap PO DAILY 09/04/18 [History] Vitamin E (Dl,Tocopheryl Acet) [Vitamin E (400 Iu = 180 mg)] 400 unit PO DAILY 09/04/18 [History] Calcium Carbonate 1,500 mg PO DAILY 09/16/18 [History] Magnesium Oxide [Mag-Ox] 250 mg PO HS 09/16/18 [History] Meclizine [Antivert] 12.5 mg PO Q6H PRN #30 tablet 01/24/20 [Rx] Triamcinolone 0.1% Ointment [Kenalog 0.1% Ointment] 1 applic TOPICAL DIRECTED PRN 02/01/21 [History] Triamcinolone Acetonide [Nasacort] 1 spray EA NOSTRIL BID 02/01/21 [History] HYDROcodone/APAP 7.5-325MG [[place] 7.5-325] 1 - 2 tab PO Q6H PRN #32 tab 02/06/21 [Rx] Ondansetron Odt [Zofran Odt] 1 tab PO Q8HR PRN #10 tab 02/06/21 [Rx] Sennosides [Senokot] 2 tab PO DAILY PRN #60 tablet 02/06/21 [Rx] Rivaroxaban [Xarelto] 10 mg PO DAILY #35 tab 02/07/21 [Rx] Follow up Appointment(s)/Referral(s): [facility], [NON-STAFF] - ([facility] will call you to set up the time for your first visit for the day after discharge from the hospital. ) Quinton Chang, [Doctor of Osteopathic Medicine] - 02/20/21 2:30 pm (YOU WILL SEE WENDY PALAFOX FOR THIS APPOINTMENT.) Patient Instructions/Handouts: *Surgery [facility] - (Anesthesia) Discharge Instructions Outpatient Surgery, Precautions after Total Joint Replacement Surgery (DC), Anterior Hip Replacement (DC) Activity/Diet/Wound Care/Special Instructions: 50% weightbearing on operative leg with walker. Please change dressing twice daily. Patient may shower. Please take Xarelto for 35 days to prevent blood clots. You do not need to take Aspirin. Recommend use of compression stockings daily until follow up to help prevent swelling and blood clots. May remove at night before sleeping. Please follow[facility]up with [facility] in 1 week and call with any questions or concerns, .
--- NOTE | 2021-02-17 12:11 | P.PN ---
Subjective Progress Note Date: 02/17/21 Patient is to patient is doing fairly well today. No acute events overnight. Lab work from today still pending. Objective - Vital Signs Vital signs: Vital Signs Temp 98.3 F 02/17/21 07:29 Pulse 96 02/17/21 07:29 Resp 14 02/17/21 07:29 BP 104/60 02/17/21 07:29 Pulse Ox 96 02/17/21 01:20 Intake & Output 02/16/21 02/17/21 02/17/21 18:59 06:59 18:59 Intake Total 240 Output Total 1090 700 Balance -850 -700 Intake: Oral 240 Output: Urine 1090 700 Other: Voiding Method Indwelling Catheter Indwelling Catheter Indwelling Catheter # Bowel Movements 1 - Exam General: The patient is awake and alert, in no distress Eye: there is normal conjunctiva bilaterally. Neck: The neck is supple, there is no JVD. Cardiovascular: Normal S1-S2, no S3-S4, no murmurs. Respiratory: Lungs clear to auscultation bilaterally Gastrointestinal: Abdomen is soft, nontender Musculoskeletal: There is no pedal edema. Neurological:. Speech is normal. Skin: Skin is warm and dry - Labs CBC & Chem 7: 02/13/21 06:03 02/16/21 13:41 Labs: Abnormal Lab Results - Last 24 Hours (Table) 02/16/21 Range/Units 13:41 Sodium 129 L (137-145) mmol/L BUN 20 H (7-17) mg/dL Creatinine 0.46 L (0.52-1.04) mg/dL Calcium 7.4 L (8.4-10.2) mg/dL Assessment and Plan Assessment: Patient is a 75-year-old female with a history of ALLERGIC rhinitis, vertigo, and osteoarthritis who presetned for elective LAVONNE. She was doing well postoperatively however she did have a fall which resulted in a periprosthetic left hip fracture. She underwent repeat operative repair on 02/07 without any immediate postoperative complications. on 02/08 her Hgb was 6.9. She was ordered 1 unit of pRBC. Her hemoglobin stabilized. She did develop some hyponatremia. 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 Sodium level worsened to 122. Nephrology following closely. Patient was transferred to the ICU for hypertonic saline infusion. Serial sodium level is stable. Patient received Samsca x1 awaiting repeat lab work today Urinary retention status post Garcia catheter insertion Vertigo -As needed meclizine Periprosthetic fracture on internal prosthetic left hip joint, management per orthopedic Today, I reviewed her medication list and lab work results. Continue physical therapy. Anticipate discharge tomorrow [place] tomorrow.
[2021-02-17 13:45] LABS: African American GFR (CKD) >90 (>60 ml/min/1.73 sqM); Anion Gap 5 mmol/L; Blood Urea Nitrogen 26 mg/dL (7-17); Calcium 8.9 mg/dL (8.4-10.2); Carbon Dioxide 28 mmol/L (22-30); Chloride 99 mmol/L (98-107); Glucose 112 mg/dL (74-99); Non-African American GFR(CKD) >90 (>60 ml/min/1.73 sqM); Potassium 4.5 mmol/L (3.5-5.1); Sodium 132 mmol/L (137-145)
[2021-02-17] MEDS: SENNOSIDES-DOCUSATE SODIUM 1 EACH TAB PO SCH (20:35)
[2021-02-17] MEDS: ACETAMINOPHEN TAB 500 MG TAB PO SCH (20:36)
[2021-02-17] MEDS: MELATONIN 5 MG TABLET PO SCH (20:36)
[2021-02-17] MEDS: LORATADINE 10 MG TAB PO SCH (20:36)
[2021-02-17] MEDS: OXYBUTYNIN CHLORIDE 5 MG TAB PO SCH (20:36)
[2021-02-17] MEDS: MAGNESIUM OXIDE 400 MG TAB PO SCH (20:37)
[2021-02-18 07:53] VITALS: BP 113/66; PULSE 89; RESP 18; TEMP 97.8
[2021-02-18] MEDS: MULTIVITAMINS, THERA 1 EACH TAB PO SCH (08:46)
[2021-02-18] MEDS: RIVAROXABAN 10 MG TAB PO SCH (08:46)
[2021-02-18] MEDS: CALCIUM CARBONATE 500 MG CHEWABLE PO SCH (08:46)
[2021-02-18] MEDS: MIDODRINE 5 MG TAB PO SCH (08:46)
[2021-02-18] MEDS: CHOLECALCIFEROL 25 MCG (1000 IU) TABLET PO SCH (08:46)
[2021-02-18] MEDS: FLUTICASONE 50MCG/SPRAY NASAL 16GM EA NOSTRIL SCH (08:46)
[2021-02-18] MEDS: ASCORBIC ACID 500 MG TAB PO SCH (08:46)
[2021-02-18] MEDS: VITAMIN E (DL,TOCOPHERYL ACET) 400 UNIT (180 MG) CAP PO SCH (08:48)
--- NOTE | 2021-02-18 09:05 | P.PN ---
Subjective Patient is seen in follow-up for hyponatremia. Sodium level CXXXII yesterday. Oral intake is improving. Has a Garcia catheter for urinary retention. No chest pain or shortness of breath. Vital signs are stable. General: The patient appeared well nourished and normally developed. HEENT: Head exam is unremarkable. LUNGS: Breath sounds decreased. HEART: Rate and Rhythm are regular. ABDOMEN: Soft, no distention. EXTREMITITES: Trace edema. Objective - Vital Signs Vital signs: Vital Signs Temp 97.8 F 02/18/21 07:52 Pulse 89 02/18/21 07:52 Resp 18 02/18/21 07:52 BP 113/66 02/18/21 07:52 Pulse Ox 92 L 02/18/21 07:52 Intake & Output 02/17/21 02/18/21 02/18/21 18:59 06:59 18:59 Output Total 600 500 Balance -600 -500 Output: Urine 600 500 Other: Voiding Method Indwelling Catheter Indwelling Catheter # Bowel Movements 1 - Labs CBC & Chem 7: 02/13/21 06:03 02/17/21 12:27 Labs: Abnormal Lab Results - Last 24 Hours (Table) 02/17/21 Range/Units 12:27 Sodium 132 L (137-145) mmol/L BUN 26 H (7-17) mg/dL Creatinine 0.46 L (0.52-1.04) mg/dL Glucose 112 H (74-99) mg/dL Microbiology - Last 24 Hours (Table) 02/15/21 07:30 Urine Culture - Preliminary Urine,Clean Catch Gram Neg Bacilli Assessment and Plan Plan: Assessment: 1. Hypervolemic hyponatremia. Status post Lasix and Samsca this admission. Improving. Sodium level 132 yesterday. Urine sodium 20 and urine osmolality 229. TSH normal. 2. Hypotension maintained on midodrine. Rule out adrenal insufficiency. 3. Volume overload. Improved. 4. Left femur fracture status post total hip arthroplasty this admission. 5. Acute blood loss anemia status post blood transfusion. Also received IV iron. 6. UTI status post antibiotics. Plan: Maintain fluid restriction. Encourage oral intake, particularly protein. Morning labs pending. Check a.m. cortisol level.
--- NOTE | 2021-02-18 09:30 | P.PN ---
Progress Note - Text Progress Note Date: 02/18/21 Orthopedics: History of present illness: This is a 75-year-old female with known history of degenerative arthritis of the left hip. The patient presented for evaluation as an outpatient. After discussion and consideration patient elected to proceed with total hip arthroplasty. The patient is seen preoperatively by Dr. Chang and cleared for surgery. Patient is admitted to [facility] on 02/06/2021 for total hip arthroplasty. The procedures performed without complication or sequelae. On 02/06/2021, in the postop area, the patient fell when she was getting dressed to go home. Before her fall she was able to work with physical therapy and was doing well with ambulation and stairs. X-rays after her fall revealed a periprosthetic fracture of the left femur. Patient was taken back to the operating room on 02/07/2021 and ORIF of left femur periprosthetic fracture and revision of left total hip arthroplasty was performed by Dr. Quinton Chang. Postoperatively, the patient did receive 2 blood transfusions and was noted to be hyponatremic. These issues have been closely managed by internal medicine and nephrology. The patient is improving. She has not had any significant changes compared yesterday. She feels she is ready for discharge today. She is happy with her progress. She is eating without any difficulty. Labs and vital signs are stable on day of discharge. On day of discharge patient's hip incisions are healing well. There is minimal erythema. There is no drainage noted at this time. There is minimal soft tissue swelling to the hip and thigh. Patient has full foot and ankle motion without difficulty or pain. Neurovascular status to the left lower extremity is intact. Patient is discharged to rehabilitation in good condition. Please see med rec for accurate list of home medications. She is clear for discharge from an orthopedic standpoint pending clearance by other medical providers. Physical Exam Total Hip Arthroplasty: Status post surgical day number 12 Patient is examined sitting in bed Patient is awake and alert, and oriented 3 Vital signs stable Good chest excursion with deep inspiration and expiration No signs or symptoms of DVT; no calf pain Lower extremity cuffs in place bilaterally Pneumatic boot intact for the left lower extremity Patient is able to wiggle toes the left lower extremity without difficulty No pain on palpation over the surgical sites of the left hip Dressing of the left hip is clean, dry, and intact; no erythema, purulence, or signs of infection Dorsiflexion, plantarflexion, and extensor hallucis longus positive sustained Neurovascularly intact bilateral lower extremities Garcia catheter intact Assessment: Status post left total hip arthroplasty performed on 02/06/2021 Status post ORIF of left femur periprosthetic fracture and revision of left total hip arthroplasty performed on 02/07/2021 Left hip pain Acute blood loss anemia Hyponatremia due to SIADH Urinary retention with Garcia catheter inserted Plan: 1. Patient is clear for discharge from an orthopedic standpoint. Medicine is tending to clear the patient for discharge today. Patient will continue with 50% weightbearing on the left lower extremity with the assistance of a walker. Continue with dressing changes twice per day at the left hip. Patient may shower without a dressing intact. Continue with Xarelto as prescribed. Recommended continued use of compression stockings daily until follow-up appointment to prevent swelling and blood clots the left lower extremity. Stockinette be removed at nighttime all dressing. Patient will plan to follow up in approximately [address] Quinton Chang. 2. Patient will continue to be seen by multiple other medical providers; medicine is planned for discharge to [facility] today.
[2021-02-18 09:58] LABS: Basophils # (A) 0.09 X 10*3/uL (0.00-0.10); Basophils % (A) 0.9 %; Eosinophils # (A) 0.14 X 10*3/uL (0.04-0.35); Eosinophils % (A) 1.4 %; HGB 8.5 g/dL (12.0-15.0); Lymphocytes # (A) 2.81 X 10*3/uL (0.90-5.00); Lymphocytes % (A) 28.9 %; MCH 31.1 pg (27.0-32.0); MCHC 30.4 g/dL (32.0-37.0); MCV 102.6 fL (80.0-97.0); Mean Platelet Volume 8.7 fL (9.5-12.2); Monocytes # (A) 0.68 X 10*3/uL (0.20-1.00); Neutrophils # (A) 5.69 X 10*3/uL (1.80-7.70); Neutrophils % (A) 58.6 %; Platelet Count 748 X 10*3/uL (140-440); RBC 2.73 X 10*6/uL (4.10-5.20); RDW 18.4 % (11.5-14.5); WBC 9.72 X 10*3/uL (4.50-10.00)
[2021-02-18 10:37] LABS: African American GFR (CKD) 116.4 (60.0-200.0); Anion Gap 5.2 mmol/L (4.00-12.00); Calcium 8.2 mg/dL (8.7-10.3); Carbon Dioxide 28.8 mmol/L (21.6-31.8); Magnesium 2.2 mg/dL (1.5-2.4); Non-African American GFR(CKD) 100.5 (60.0-200.0); Potassium 5.2 mmol/L (3.5-5.5)
--- NOTE | 2021-02-18 10:55 | P.DS ---
Providers Date of admission: 02/07/21 08:47 Expected date of discharge: 02/18/21 Attending physician: Quinton Chang Consults: 02/06/21 14:10 Consult Physician Routine Consulting Provider: Dawna Hagen Consult Reason/Comments: medical management Do you want consulting provider notified?: Yes 02/08/21 14:10 Consult Physician Routine Consulting Provider: Bhavana Griggs Consult Reason/Comments: hyponatremia Do you want consulting provider notified?: Yes 02/14/21 19:58 Consult Physician Routine Consulting Provider: Luis M Morales Consult Reason/Comments: low sodium Do you want consulting provider notified?: Already Contacted [facility] Course: Patient is a 75-year-old female with a history of ALLERGIC rhinitis, vertigo, and osteoarthritis who presetned for elective LAVONNE. She was doing well postoperatively however she did have a fall which resulted in a periprosthetic left hip fracture. She underwent repeat operative repair on 02/07 without any immediate postoperative complications. on 02/08 her Hgb was 6.9. She was ordered 1 unit of pRBC. Her hemoglobin stabilized. She did develop some hyponatremia. 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 Below is as of her medical problem Acute blood loss anemia, with iron deficiency anemia - IV iron X 3 completed , outpatient,outpatient GI evaluation from PCP - s/p 1 unit pRBC - stable Hyponatremia thought to be due to SIADH, sodium level improved significantly - Patient was started on Lasix. Sodium level worsened to 122. Nephrology following closely. Patient was transferred to the ICU for hypertonic saline infusion. Serial sodium level is stable. Patient received Samsca x1 during this hospitalization Urinary retention status post Garcia catheter insertion, oxybutynin discontinued. Plan to do voiding trial at [facility] in 3 days. Vertigo -As needed meclizine Periprosthetic fracture on internal prosthetic left hip joint, management per orthopedic Patient was seen and evaluated by me today. She stable for discharge home to [facility]. General: The patient is awake and alert, in no distress Eye: there is normal conjunctiva bilaterally. Neck: The neck is supple, there is no JVD. Cardiovascular: Normal S1-S2, no S3-S4, no murmurs. Respiratory: Lungs clear to auscultation bilaterally Gastrointestinal: Abdomen is soft, nontender Musculoskeletal: There is no pedal edema. Neurological:. Speech is normal. Skin: Skin is warm and dry Plan - Discharge Summary Discharge Rx Participant: No New Discharge Prescriptions: New Sennosides [Senokot] 2 tab PO DAILY PRN #60 tablet PRN Reason: Constipation Ondansetron Odt [Zofran Odt] 1 tab PO Q8HR PRN #10 tab PRN Reason: Nausea Rivaroxaban [Xarelto] 10 mg PO DAILY #35 tab HYDROcodone/APAP 7.5-325MG [[place] 7.5-325] 1 - 2 tab PO Q6H PRN #32 tab PRN Reason: Pain Continue Vitamin E (Dl,Tocopheryl Acet) [Vitamin E (400 Iu = 180 mg)] 400 unit PO DAILY Multivit/Folic Acid/Vit K1 [One-A-Day Women's 50 Plus Tab] 1 tab PO DAILY Cholecalciferol [Vitamin D3 (25 Mcg = 1000 Iu)] 1,000 unit PO DAILY Vitamin B Complex 1 cap PO DAILY Ubidecarenone [Co Q-10] 100 mg PO DAILY [place]-3 Fatty Acids [[place]-3] 1,000 mg PO HS Ascorbic Acid [Vitamin C] 1,000 mg PO DAILY Melatonin 5 mg PO HS Cetirizine HCl 10 mg PO HS Aspirin 81 mg PO DAILY Magnesium Oxide [Mag-Ox] 250 mg PO HS Calcium Carbonate 1,500 mg PO DAILY Meclizine [Antivert] 12.5 mg PO Q6H PRN #30 tablet PRN Reason: dizziness Triamcinolone 0.1% Ointment [Kenalog 0.1% Ointment] 1 applic TOPICAL DIRECTED PRN PRN Reason: Rash Triamcinolone Acetonide [Nasacort] 1 spray EA NOSTRIL BID Discontinued Oxybutynin Chloride 5 mg PO HS Acetaminophen [Tylenol Arthritis] 1,300 mg PO HS Discharge Medication List Ascorbic Acid [Vitamin C] 1,000 mg PO DAILY 09/04/18 [History] Aspirin 81 mg PO DAILY 09/04/18 [History] Cetirizine HCl 10 mg PO HS 09/04/18 [History] Cholecalciferol [Vitamin D3 (25 Mcg = 1000 Iu)] 1,000 unit PO DAILY 09/04/18 [History] Melatonin 5 mg PO HS 09/04/18 [History] Multivit/Folic Acid/Vit K1 [One-A-Day Women's 50 Plus Tab] 1 tab PO DAILY 09/04/18 [History] [place]-3 Fatty Acids [[place]-3] 1,000 mg PO HS 09/04/18 [History] Ubidecarenone [Co Q-10] 100 mg PO DAILY 09/04/18 [History] Vitamin B Complex 1 cap PO DAILY 09/04/18 [History] Vitamin E (Dl,Tocopheryl Acet) [Vitamin E (400 Iu = 180 mg)] 400 unit PO DAILY 09/04/18 [History] Calcium Carbonate 1,500 mg PO DAILY 09/16/18 [History] Magnesium Oxide [Mag-Ox] 250 mg PO HS 09/16/18 [History] Meclizine [Antivert] 12.5 mg PO Q6H PRN #30 tablet 01/24/20 [Rx] Triamcinolone 0.1% Ointment [Kenalog 0.1% Ointment] 1 applic TOPICAL DIRECTED PRN 02/01/21 [History] Triamcinolone Acetonide [Nasacort] 1 spray EA NOSTRIL BID 02/01/21 [History] HYDROcodone/APAP 7.5-325MG [[place] 7.5-325] 1 - 2 tab PO Q6H PRN #32 tab 02/06/21 [Rx] Ondansetron Odt [Zofran Odt] 1 tab PO Q8HR PRN #10 tab 02/06/21 [Rx] Sennosides [Senokot] 2 tab PO DAILY PRN #60 tablet 02/06/21 [Rx] Rivaroxaban [Xarelto] 10 mg PO DAILY #35 tab 02/07/21 [Rx] Follow up Appointment(s)/Referral(s): [facility], [NON-STAFF] - ([facility] will call you to set up the time for your first visit for the day after discharge from the hospital. ) Quinton Chang DO [Doctor of Osteopathic Medicine] - 02/20/21 2:30 pm (YOU WILL SEE WENDY PALAFOX FOR THIS APPOINTMENT.) Patient Instructions/Handouts: *Surgery [facility] - (Anesthesia) Discharge Instructions Outpatient Surgery, Precautions after Total Joint Replacement Surgery (DC), Anterior Hip Replacement (DC) Activity/Diet/Wound Care/Special Instructions: 50% weightbearing on operative leg with walker. Please change dressing twice daily. Patient may shower. Please take Xarelto for 35 days to prevent blood clots. You do not need to take Aspirin. Recommend use of compression stockings daily until follow up to help prevent swelling and blood clots. May remove at night before sleeping. Please [facility]up with [facility] in 1 week and call with any questions or concerns, . Discharge Disposition: TRANSFER TO SNF/ECF
--- NOTE | 2021-02-21 09:37 | CDI ---
Documentation Clarification Form Date: 02/21/2021 08:55:34 AM From: Lashawn Freitas RN, CCDS Admit Date: 02/07/2021 08:47:00 AM Patient Name: Judy Kennedy Visit Number: [id number] Discharge Date: 02/18/2021 03:01:00 PM ATTENTION: The Clinical Documentation Specialists (CDI) and [facility] Coding Staff appreciate your assistance in clarifying documentation. Please respond to the clarification below the line at the bottom and electronically sign. The CDI & [facility] Coding staff will review the response and follow-up if needed. Please note: Queries are made part of the Legal Health Record. If you have any questions, please contact the author of this message via ITS. Dr. Chaitanya Leon Urinary retention is documented beginning in the 02/14 Medical Progress Note and patient had IDC removal 02/13 with re-insertion 02/16. Additional clarification is requested regarding the relationship, if any, that exists between the diagnosis and the procedure. Patients Admitting Diagnosis: Periprosthetic fracture left femur status post left total hip arthroplasty Post-Operative Diagnosis: Periprosthetic fracture left femur status post left total hip arthroplasty Procedure performed: Open reduction internal fixation left femur periprosthetic fracture 2. Revision left total hip arthroplasty History/Risk Factors: Vertigo, OA, fall with periprosthetic his FX 24 hrs. s/p elective hip replacement Clinical Indicators: 02/14/2021 Urinalysis: Cloudy, +1 Protein, Small blood, Large leukocyte esterase, 44 RBC, 80 WBC, Rare Bacteria 02/15 Urine culture: +Pseudomonas aeruginosa 02/13 & 02/18 Lab results: WBC 8.9/9.72 (NO CBC from 02/14-02/17) 02/14-02/15 Medical Attending Progress Note: "Urinary retention -Continue bladder scan to check post void residual was ordered every 8 hours -Garcia catheter was discontinued yesterday that may require reinsertion." 02/16-02/18 Attending Progress Note: "Urinary retention status post Garcia catheter insertion." 02/15 Pulmonary Consult: "Urinary retention." 02/16-02/18 Attending Progress Note: "Urinary retention status post Garcia catheter insertion." Treatment: 02/13-02/16 Patient is straight Cathed, 02/16 IDC is inserted. 02/06-02/17 Ditropan 5 mg Po Q HS What relationship, if any, exists between the diagnosis of Urinary Retention and the procedure? [ ] Urinary Retention is a complication of surgical procedure [ ] Urinary Retention is an expected outcome of the surgical procedure [ ] Urinary Retention is related to patients co-morbid condition(s) of [please specify] & not a complication of the procedure [ ] Other please specify ____ [ ] Unable to determine (Template Last Revised: August 2020) MTDD
--- NOTE | 2021-03-01 09:14 | CDI ---
Documentation Clarification Form 2nd Request Date: 02/21/2021 08:55:34 AM From: Lashawn Freitas RN, CCDS Admit Date: 02/07/2021 08:47:00 AM Patient Name: Judy Kennedy Visit Number: [id number] Discharge Date: 02/18/2021 03:01:00 PM ATTENTION: The Clinical Documentation Specialists (CDI) and [facility] Coding Staff appreciate your assistance in clarifying documentation. Please respond to the clarification below the line at the bottom and electronically sign. The CDI & [facility] Coding staff will review the response and follow-up if needed. Please note: Queries are made part of the Legal Health Record. If you have any questions, please contact the author of this message via ITS. Dr. Chaitanya Leon Urinary retention is documented beginning in the 02/14 Medical Progress Note and patient had IDC removal 02/13 with re-insertion 02/16. Additional clarification is requested regarding the relationship, if any, that exists between the diagnosis and the procedure. Patients Admitting Diagnosis: Periprosthetic fracture left femur status post left total hip arthroplasty Post-Operative Diagnosis: Periprosthetic fracture left femur status post left total hip arthroplasty Procedure performed: Open reduction internal fixation left femur periprosthetic fracture 2. Revision left total hip arthroplasty History/Risk Factors: Vertigo, OA, fall with periprosthetic his FX 24 hrs. s/p elective hip replacement Clinical Indicators: 02/14/2021 Urinalysis: Cloudy, +1 Protein, Small blood, Large leukocyte esterase, 44 RBC, 80 WBC, Rare Bacteria 02/15 Urine culture: +Pseudomonas aeruginosa 02/13 & 02/18 Lab results: WBC 8.9/9.72 (NO CBC from 02/14-02/17) 02/14-02/15 Medical Attending Progress Note: "Urinary retention -Continue bladder scan to check post void residual was ordered every 8 hours -Garcia catheter was discontinued yesterday that may require reinsertion." 02/16-02/18 Attending Progress Note: "Urinary retention status post Garcia catheter insertion." 02/15 Pulmonary Consult: "Urinary retention." 02/16-02/18 Attending Progress Note: "Urinary retention status post Garcia catheter insertion." Treatment: 02/13-02/16 Patient is straight Cathed, 02/16 IDC is inserted. 02/06-02/17 Ditropan 5 mg Po Q HS What relationship, if any, exists between the diagnosis of Urinary Retention and the procedure? [ ] Urinary Retention is a complication of surgical procedure [ ] Urinary Retention is an expected outcome of the surgical procedure [ ] Urinary Retention is related to patients co-morbid condition(s) of [please specify] & not a complication of the procedure [ ] Other please specify ____ [ X ] Unable to determine (Template Last Revised: August 2020) MTDD
== END 2021-02-18 15:01 | DRG 467 ==
LOC: OR 05:35 → 4SSUR 14:17 → OR 02-07 08:47 → 4SSUR 02-13 14:48 → 2SICU 02-14 13:46 → 4SSUR 02-16 22:15
PROVIDERS: ADMIT Orthopaedic Surgery; ATTEND Orthopaedic Surgery
PROC: 0SRB06A Replacement of Left Hip Joint with Oxidized Zirconium on Polyethylene Synthetic Substitute, Uncemented, Open Approach (ICD-10-PCS; 2021-02-06)
PROC: 0QS704Z Reposition Left Upper Femur with Internal Fixation Device, Open Approach (ICD-10-PCS; principal; 2021-02-07 12:00)
PROC: 0SRS01A Replacement of Left Hip Joint, Femoral Surface with Metal Synthetic Substitute, Uncemented, Open Approach (ICD-10-PCS; principal; 2021-02-07 12:00)
PROC: 0SPS0JZ Removal of Synthetic Substitute from Left Hip Joint, Femoral Surface, Open Approach (ICD-10-PCS; principal; 2021-02-07 12:00)
PROC: 30233N1 Transfusion of Nonautologous Red Blood Cells into Peripheral Vein, Percutaneous Approach (ICD-10-PCS; 2021-02-08)
DX: M97.02XA Periprosthetic fracture around internal prosthetic left hip joint, initial encounter (principal); E22.2 Syndrome of inappropriate secretion of antidiuretic hormone; D62 Acute posthemorrhagic anemia; I95.9 Hypotension, unspecified; Z20.822 Contact with and (suspected) exposure to COVID-19; M16.12 Unilateral primary osteoarthritis, left hip; E87.70 Fluid overload, unspecified; E88.09 Other disorders of plasma-protein metabolism, not elsewhere classified; D50.9 Iron deficiency anemia, unspecified; R33.9 Retention of urine, unspecified; K21.9 Gastro-esophageal reflux disease without esophagitis; I10 Essential (primary) hypertension; K59.00 Constipation, unspecified; L30.9 Dermatitis, unspecified; J30.9 Allergic rhinitis, unspecified; M54.9 Dorsalgia, unspecified; R42 Dizziness and giddiness; Z79.82 Long term (current) use of aspirin; Z79.899 Other long term (current) drug therapy; Z90.49 Acquired absence of other specified parts of digestive tract; Z90.89 Acquired absence of other organs; Z98.51 Tubal ligation status; Z96.653 Presence of artificial knee joint, bilateral; Z98.42 Cataract extraction status, left eye; Z98.41 Cataract extraction status, right eye; Z98.890 Other specified postprocedural states; Z88.3 Allergy status to other anti-infective agents; W19.XXXA Unspecified fall, initial encounter; Y92.530 Ambulatory surgery center as the place of occurrence of the external cause; Z88.2 Allergy status to sulfonamides; Z88.8 Allergy status to other drugs, medicaments and biological substances; Z91.018 Allergy to other foods; Z91.048 Other nonmedicinal substance allergy status; Z80.7 Family history of other malignant neoplasms of lymphoid, hematopoietic and related tissues; Z80.1 Family history of malignant neoplasm of trachea, bronchus and lung
CPT/HCPCS: 36410; 71045; 73501; 76937; 80048; 80053; 81001; 82728; 83540; 83550; 83735; 83930; 83935; 84295; 84300; 84443; 84484; 85025; 85027; 86850; 86891; 86900; 86901; 86920; 87077; 87086; 87186; 87635; 88300; 93005

== ENCOUNTER → 2021-07-18 | Outpatient (CLI) | payer MEDICARE, BC, OTHER ==
[2021-07-18 14:46] LABS: HCT 42.7 % (37.2-46.3); HGB 13.8 g/dL (12.0-15.0); MCHC 32.3 g/dL (32.0-37.0); Mean Platelet Volume 9.5 fL (9.5-12.2); NRBC Per 100 WBC 0 /100 WBCS (0.0-0.0); Platelet Count 320 X 10*3/uL (140-440); RBC 4.45 X 10*6/uL (4.10-5.20); RDW 13.3 % (11.5-14.5); WBC 5.59 X 10*3/uL (4.50-10.00)
[2021-07-18 15:03] LABS: ALT 11 U/L (8-44); AST 22 U/L (13-35); African American GFR (CKD) 107.4 (60.0-200.0); Blood Urea Nitrogen 14.9 mg/dL (9.0-27.0); Calcium 9.3 mg/dL (8.7-10.3); Carbon Dioxide 22.4 mmol/L (20.0-27.5); Chloride 103 mmol/L (96-109); Chol/HDL Ratio 2.56 Ratio; Glucose 90 mg/dL (70-110); LDL Cholesterol,Calculated 91.8 mg/dL (0.0-131.0); Non-African American GFR(CKD) 92.7 (60.0-200.0); Potassium 4.2 mmol/L (3.5-5.5); Sodium 137 mmol/L (135-145); VLDL Calculation 18.48 mg/dL (5.00-40.00)
== END | disposition home or self-care (01) ==
LOC: LABWHC1 09:14
PROVIDERS: ATTEND Nurse Practitioner Family
DX: R07.2 Precordial pain (principal); E78.2 Mixed hyperlipidemia
CPT/HCPCS: 36415; 80048; 80061; 84443; 84450; 84460; 85027

== ENCOUNTER → 2021-10-19 | Outpatient (CLI) | payer MEDICARE, BC, OTHER ==
--- NOTE | 2021-10-19 22:01 | BD ---
EXAMINATION TYPE: Axial Bone Density DATE OF EXAM: 10/19/2021 COMPARISON: NONE CLINICAL HISTORY: 76 years year old Female. ICD-10 CODE: M85.80 OTH DISRD OF BONE DENSITY AND STRUCT URE, UN Height: 59.4 Weight: 129 FRAX RISK QUESTIONS: Family History (Parent hip fracture): YES History of Fracture in Adulthood: YES Secondary Osteoporosis: YES 3. Menopause before 45: YES RISK FACTORS HISTORY OF: YES, LT LEG , RT WRIST AN ADULT, History of Wrist Fracture: RT WRIST 2020 Surgery to LT HIP REPLACEMENT 2020 Family History of Osteoporosis: YES, MOTHER WITH HIP FXs Postmenopausal woman: YES, AT AGE 41 YRS OLD, Hyperparathyroidism: NO Adrenal Insufficiency: NO MEDICATIONS: Prednisone or other steroids: YES ON AND OFF FOR NEUROPATHY AND PAIN How Long: FOR MANY YRS NOW Additional Medications: VIT D AND CALCIUM, REFLUX MEDS PRN Additional History: NEUROPATHY, REFLUX, OSTEOARTHRITIS, BILAT TKRs EXAM MEASUREMENTS: Bone mineral densitometry was performed using the shopa System. Bone mineral density as measured about the Lumbar spine is: ----- L1-L4(G/cm2): 1.188 T Score Values are as follows: ----- L1: 0.4 ----- L2: 1.1 ----- L3: -1.1 ----- L4: -1.6 ----- L1-L4: 0.1 Bone mineral density FIRST DEXA STUDY AT [facility] Bone mineral density about the R hip (g/cm2): 0.832 T Score values are as follows: -----R Neck: -1.7 -----R Total: -1.4 Bone mineral density FIRST BONE DENSITY AT [facility] FRAX%s: The graph provided illustrates a 33.6% chance for a major osteoporotic fx and a 19.0% chance for the hips probability for fx in 10 years time. IMPRESSION: Osteopenia (T Score between -2.5 and -1). There is slightly increased risk of fracture and the patient may be considered for treatment. Re-Screen 2-5 years. NOTE: T-SCORE=SD OF THE YOUNG ADULT MEAN.
== END | disposition home or self-care (01) ==
LOC: RADBDWWP 09:44
PROVIDERS: ATTEND Internal Medicine
DX: M85.89 Other specified disorders of bone density and structure, multiple sites (principal); Z78.0 Asymptomatic menopausal state
CPT/HCPCS: 77080

== ENCOUNTER → 2021-11-01 | Outpatient (CLI) | payer MEDICARE, BC, OTHER ==
--- NOTE | 2021-11-01 09:47 | P.CON ---
Consult Note - . Consult date: 11/01/21 Assessment/Plan:: HISTORY OF PRESENT ILLNESS: 76 yr old female as a referral from Dr. Barragan presents today with chronic and severe cervical pain secondary to level scoliosis, DDD, anterolisthesis, retrolisthesis, spinal stenosis and facet arthropathy for evaluation. She states her pain waxes and wanes in intensity throughout the day but is currently 5 out of 10, constant, achy, sore in the left aspect of her lower cervical spine with radiation of tingling and numbness to the back of her left shoulder and left fingers. Pain is provoked with rotation, hyperextension and lateral flexion. Pain is relieved with medications (Tylenol arthritis), heat and physical therapy, physical therapy twice a week since March 2021, daily home stretching regimen, repositioning and rest. Past Medical History: GERD/Reflux, Osteoarthritis (OA), Eczema Past Surgical History: Cholecystectomy, BL Knee Replacement, BL Cataract Resection, Tonsillectomy, Tubal Ligation Social History: Never smoker, No ETOH abuse, No illicit drug use. Family History: Mother- Larce Cell Lymphoma. Brother(s)- Lung CA. All: See list Meds: See list REVIEW OF ORGAN SYSTEMS: CONSTITUTIONAL: No fevers or chills. No recent weight loss. HEENT: No visual acuity loss, eye pain, difficulties with hearing. No nosebleeds. No difficulty swallowing. RESPIRATORY: Denies any troubles with breathing or dyspnea on exertion. CARDIOVASCULAR: Denies any chest pain, palpitations, or recent heart attacks. GASTROINTESTINAL: Denies fatty food intolerance. Has change in bowel habits and gas bloat. GENITOURINARY: Denies any blood in urine. Has increased urinary frequency. NEUROLOGICAL: + numbness and tingling along the distal extremities. No seizure disorders or headaches. MUSCULOSKELETAL: + back pain SKIN: No skin cancer. No rash. PSYCHIATRIC: Denies current depression or suicidal thoughts. ENDOCRINE: Denies current thyroid disorders. Denies any blood sugar glucose intolerance. HEME/LYMPHATIC: Denies any lumps and bumps around the neck. History of deep venous thrombosis. ALLERGY/IMMUNOLOGY: No immunoglobulin therapy. No immune deficiencies. BREAST: Denies current breast lumps, pain or nipple discharge. Physical Examinations : Constitutional : Cooperative , not in acute distress . HEENT: Neck supple. No Lymphadenopathy. Normal thyroid size . Eyes no ptosis , no icterus, no photophobia . Hearing intact. Normal oropharynx. No Thrush. Respiratory : Chest clear to auscultations bilaterally. No wheezing. No rhonchi. Cardiovascular : Regular rate and rhythm , S1 / S2. No S3 . No S4. Gastrointestinal : Abdomen soft. No tenderness. Bowel sounds x 4. No organomegaly . Genitourinary : Deferred. Neurologic : Cranial nerve II to XII intact. No focal neurological deficits. Psychiatric : alert & oriented x 3. Matching mood & appropriate affect. Judgment & insight intact. Lymphatic No Lymphadenopathy. Musculoskeletal : Cervical Spine Motor strength in the deltoid and biceps: Normal right side. Normal Left side Motor strength biceps and the wrist extensors: Normal right side . Normal left side Motor strength in the triceps muscle: Normal right side. Normal left side Deep tendon reflexes: Normal at the biceps. Normal at Brachioradialis. Normal at triceps Vertebral body TTP over C7. Pain with L lateral flexion. Cervical facet loading test: positive bilaterally Spurling test: positive bilaterally Neck distraction test: positive bilaterally Ilia sign: positive bilaterally Lumbar spine Motor strength lower extremities ,thigh and legs 5/5 Right side , 5/5 Left side Deep tendon reflexes : Normal Knee Jerk. Normal Ankle Jerk Vertebral body tenderness over Lumbar facet Loading Test: positive Right / positive Left Range of motion of the lumbar spine Flexion 30 degrees, extension 10 degrees Straight Leg Raise test: Left/ Right positive at degree Suhas test: positive right / positive left. Severe tenderness over the Sacroiliac joint on the Right / Left sides Gaenslen test: positive bilaterally Seated flexion test: positive bilaterally. Sacral spine : Severe tenderness over the Sacroiliac joint: right side / left side Range of motion: Flexion of the lumbar spine <60 degrees Range of motion: Extension of the lumbar spine <20 degrees Gaenslen's Test positive Sathish's Test positive Suhas test: positive right side / left side Thigh Thrust Test Sacral Thrust Test Imaging: MRI without contrast of the cervical spine from 10/04/21 reviewed. Assessment/ Plan : Recommendation of L interlaminar C7-T1 #1. May need a series of injections, up to 3 with in a 6 mo period, for optimal pain relief. Risks, benefits of pr ocedure discussed and patient verbalized understanding. Denies aspirin or anti- coagulant use or medical history of diabetes. All questions answered. I have spent greater than 50 minutes on patient care today. Dr Canseco was available by phone for the evaluation of this patient. The time was used to review the medical records including relevant urine studies and Prescription history (MAPs), review of the available imaging, evaluation and examination of the patient, coordination of care with the medical staff and if applicable referring physicians, as well as creation of the medical record PQRS Measure Charge Sheet PQRS Narrative: Smoking Status Never smoker Home Medications: Ambulatory Orders Ascorbic Acid [Vitamin C] 1,000 mg PO DAILY 09/04/18 Aspirin 81 mg PO DAILY 09/04/18 Cetirizine HCl 10 mg PO HS 09/04/18 Cholecalciferol [Vitamin D3 (25 Mcg = 1000 Iu)] 1,000 unit PO DAILY 09/04/18 Melatonin 5 mg PO HS 09/04/18 Multivit/Folic Acid/Vit K1 [One-A-Day Women's 50 Plus Tab] 1 tab PO DAILY 09/04/18 [place]-3 Fatty Acids [Agency-3] 1,000 mg PO HS 09/04/18 Ubidecarenone [Co Q-10] 100 mg PO DAILY 09/04/18 Vitamin B Complex 1 cap PO DAILY 09/04/18 Vitamin E (Dl,Tocopheryl Acet) [Vitamin E (400 Iu = 180 mg)] 400 unit PO DAILY 09/04/18 Calcium Carbonate 1,500 mg PO DAILY 09/16/18 Magnesium Oxide [Mag-Ox] 250 mg PO HS 09/16/18 Meclizine [Antivert] 12.5 mg PO Q6H PRN #30 tablet 01/24/20 Triamcinolone 0.1% Ointment [Kenalog 0.1% Ointment] 1 applic TOPICAL DIRECTED PRN 02/01/21 Triamcinolone Acetonide [Nasacort] 1 spray EA NOSTRIL BID 02/01/21 HYDROcodone/APAP 7.5-325MG [[place] 7.5-325] 1 - 2 tab PO Q6H PRN #32 tab 02/06/21 Ondansetron Odt [Zofran Odt] 1 tab PO Q8HR PRN #10 tab 02/06/21 Sennosides [Senokot] 2 tab PO DAILY PRN #60 tablet 02/06/21 Rivaroxaban [Xarelto] 10 mg PO DAILY #35 tab 02/07/21
[2021-11-01 10:02] VITALS: BP 112/69; PULSE 76; RESP 18; TEMP 98.3
== END ==
LOC: PNWHC3 09:02
PROVIDERS: ATTEND Specialist
DX: M48.02 Spinal stenosis, cervical region (principal); M47.812 Spondylosis without myelopathy or radiculopathy, cervical region; M50.30 Other cervical disc degeneration, unspecified cervical region; M41.9 Scoliosis, unspecified; G89.29 Other chronic pain; M19.90 Unspecified osteoarthritis, unspecified site; Z88.8 Allergy status to other drugs, medicaments and biological substances; Z88.2 Allergy status to sulfonamides; Z88.1 Allergy status to other antibiotic agents; Z91.018 Allergy to other foods; Z91.09 Other allergy status, other than to drugs and biological substances
CPT/HCPCS: 99211

== ENCOUNTER 2022-09-11 13:43 | Emergency (ER) | payer OTHER, MEDICARE, BC ==
[2022-09-11 14:04] VITALS: BP 121/65; PULSE 77; RESP 18; TEMP 98.4
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
--- NOTE | 2022-09-11 14:25 | XR ---
EXAMINATION TYPE: XR Hip RT and AP Pelvis DATE OF EXAM: 09/11/2022 CLINICAL HISTORY: pain TECHNIQUE: AP and frogleg views of the right hip are obtained. Single view of the pelvis is also sub mitted COMPARISON: None. FINDINGS: There is no acute fracture/dislocation evident. The joint space appears within normal li mits. Total left hip arthroplasty is noted to be well seated and in place. The overlying soft tissue appears unremarkable. IMPRESSION: 1. There is no acute fracture or dislocation. ICD 10 NO FRACTURE, INITIAL EVALUATION
== END 2022-09-11 15:33 | disposition home or self-care (01) ==
LOC: EC 13:43
DX: M25.551 Pain in right hip (principal); Z91.018 Allergy to other foods; Z88.2 Allergy status to sulfonamides; Z88.8 Allergy status to other drugs, medicaments and biological substances; Z04.9 Encounter for examination and observation for unspecified reason; V89.2XXA Person injured in unspecified motor-vehicle accident, traffic, initial encounter; Y92.410 Unspecified street and highway as the place of occurrence of the external cause
CPT/HCPCS: 73502; 99284

== ENCOUNTER → 2023-10-17 | Outpatient (CLI) | payer MEDICARE, BC, OTHER | END | disposition home or self-care (01) | LOC: LABWHC1 10:59 | PROVIDERS: ATTEND Family Medicine | DX: Z53.9 Procedure and treatment not carried out, unspecified reason (principal) ==